=== PATIENT | female | born 1930 | race Caucasian/White ===

== ENCOUNTER 2016-12-10 10:10 | Outpatient (CLI) | payer MEDICARE, OTHER | END 2016-12-10 10:11 | disposition home or self-care (01) | DX: Z79.899 Other long term (current) drug therapy (principal); E03.9 Hypothyroidism, unspecified; E11.9 Type 2 diabetes mellitus without complications; N28.9 Disorder of kidney and ureter, unspecified ==

== ENCOUNTER 2016-12-10 11:45 | Outpatient (CLI) | payer MEDICARE, OTHER | END 2016-12-10 11:46 | disposition home or self-care (01) | DX: M17.12 Unilateral primary osteoarthritis, left knee (principal); M11.262 Other chondrocalcinosis, left knee; E03.9 Hypothyroidism, unspecified; Z79.899 Other long term (current) drug therapy; N28.9 Disorder of kidney and ureter, unspecified; E11.9 Type 2 diabetes mellitus without complications ==

== ENCOUNTER 2017-06-25 09:28 | Outpatient (CLI) | payer MEDICARE, OTHER ==
[2017-06-25 14:19] LABS: BASOPHILS % (AUTO) 0.7 %; EOSINOPHILS # (AUTO) 0.1 10^3/uL (0.0-0.7); HCT - HEMATOCRIT 33.4 % (37.0-47.0); HGB - HEMOGLOBIN 11.3 g/dL (12.0-16.0); LYMPHOCYTES # (AUTO) 0.5 10^3/uL (1.5-3.5); MEAN CORPUSCULAR HEMOGLOBIN 29.7 pg (27.0-31.0); MEAN CORPUSCULAR HGB CONC 33.9 g/dL (32.0-36.0); MEAN CORPUSCULAR VOLUME 87.5 fL (81.0-99.0); MEAN PLATELET VOLUME 9.2 fL (7.9-10.8); MONOCYTES # (AUTO) 0.6 10^3/uL (0.0-1.0); MONOCYTES % (AUTO) 10.2 %; NEUTROPHILS # (AUTO) 4.3 10^3/uL (1.5-6.6); NEUTROPHILS % (AUTO) 79.1 %; RED BLOOD COUNT 3.81 10^6/uL (4.20-5.40); RED CELL DISTRIBUTION WIDTH 13.7 % (12.0-15.0); UNCORRECTED WHITE BLOOD COUNT 5.4 x10^3/uL; WHITE BLOOD COUNT 5.4 x10^3/uL (4.8-10.8)
[2017-06-25 14:35] LABS: ALBUMIN/GLOBULIN RATIO 1.4 (1.0-2.2); BILIRUBIN,TOTAL 0.7 mg/dL (0.2-1.0); CALCIUM 9.3 mg/dL (8.5-10.3); POTASSIUM 4.2 mmol/L (3.5-5.0); TOTAL PROTEIN 6.5 g/dL (6.7-8.2)
== END 2017-06-25 09:29 | disposition home or self-care (01) ==
LOC: LAB.WCP 09:28
PROVIDERS: ATTEND Physician Assistant Medical
DX: T50.Z95A Adverse effect of other vaccines and biological substances, initial encounter (principal)
CPT/HCPCS: 36415; 80053; 85025

== ENCOUNTER 2017-09-13 08:00 | Outpatient (CLI) | payer MEDICARE, OTHER ==
[2017-09-13 19:18] LABS: BASOPHILS % (AUTO) 0.6 %; EOSINOPHILS # (AUTO) 0.1 10^3/uL (0.0-0.7); EOSINOPHILS % (AUTO) 1.9 %; HCT - HEMATOCRIT 35.6 % (37.0-47.0); HGB - HEMOGLOBIN 11.8 g/dL (12.0-16.0); LYMPHOCYTES # (AUTO) 2.4 10^3/uL (1.5-3.5); LYMPHOCYTES % (AUTO) 31.3 %; MEAN CORPUSCULAR HEMOGLOBIN 29.8 pg (27.0-31.0); MEAN CORPUSCULAR HGB CONC 33.1 g/dL (32.0-36.0); MEAN CORPUSCULAR VOLUME 90.1 fL (81.0-99.0); MEAN PLATELET VOLUME 9.2 fL (7.9-10.8); MONOCYTES # (AUTO) 0.6 10^3/uL (0.0-1.0); MONOCYTES % (AUTO) 7.6 %; NEUTROPHILS # (AUTO) 4.5 10^3/uL (1.5-6.6); NEUTROPHILS % (AUTO) 58.6 %; NUCLEATED RED BLOOD CELLS AUTO 0.2 /100WBC; RED BLOOD COUNT 3.96 10^6/uL (4.20-5.40); RED CELL DISTRIBUTION WIDTH 13.5 % (12.0-15.0); UNCORRECTED WHITE BLOOD COUNT 7.6 x10^3/uL; WHITE BLOOD COUNT 7.6 x10^3/uL (4.8-10.8)
[2017-09-13 19:24] LABS: ALBUMIN/GLOBULIN RATIO 1.7 (1.0-2.2); BILIRUBIN,TOTAL 0.8 mg/dL (0.2-1.0); BUN - BLOOD UREA NITROGEN 36 mg/dL (6-20); CALCIUM 9.4 mg/dL (8.5-10.3); CARBON DIOXIDE - CO2 30 mmol/L (21-32); CHLORIDE 102 mmol/L (101-111); CHOL/HDL RATIO 2.5 (<4.4); CHOLESTEROL 157 mg/dL; CREATININE 1.1 mg/dL (0.4-1.0); GFR - MDRD 47 (>89); GLUCOSE 119 mg/dL (70-100); HDL CHOLESTEROL 63 mg/dL; LDL/HDL RATIO 1.1 (<4.4); SODIUM 140 mmol/L (135-145); TOTAL PROTEIN 6.8 g/dL (6.7-8.2); TRIGLYCERIDES 121 mg/dL; VLDL CHOLESTEROL 24 mg/dL
[2017-09-13 20:20] LABS: HEMOGLOBIN A1C 0.64 g/dL
== END 2017-09-13 08:01 | disposition home or self-care (01) ==
LOC: LAB.WCP 08:00
PROVIDERS: ATTEND Physician Assistant Medical
DX: E11.59 Type 2 diabetes mellitus with other circulatory complications (principal); E78.5 Hyperlipidemia, unspecified; Z51.81 Encounter for therapeutic drug level monitoring; Z79.899 Other long term (current) drug therapy
CPT/HCPCS: 36415; 80053; 80061; 83036; 84443; 85025

== ENCOUNTER 2018-01-17 08:51 | Outpatient (CLI) | payer MEDICARE, OTHER ==
[2018-01-17 13:00] LABS: ALBUMIN/GLOBULIN RATIO 1.6 (1.0-2.2); ALKALINE PHOSPHATASE 45 IU/L (42-121); ALT ALANINE AMINOTRANSFERASE 14 IU/L (10-60); AST ASPARTATE AMINOTRANSFERASE 22 IU/L (10-42); BILIRUBIN,TOTAL 0.4 mg/dL (0.2-1.0); BUN - BLOOD UREA NITROGEN 39 mg/dL (6-20); CALCIUM 9.6 mg/dL (8.5-10.3); CARBON DIOXIDE - CO2 30 mmol/L (21-32); CHLORIDE 100 mmol/L (101-111); CHOLESTEROL 160 mg/dL; CREATININE 1.3 mg/dL (0.4-1.0); GFR - MDRD 39 (>89); GLUCOSE 106 mg/dL (70-100); HDL CHOLESTEROL 54 mg/dL; LDL CHOLESTEROL,CALCULATED 81 mg/dL; LDL/HDL RATIO 1.5 (<4.4); SODIUM 138 mmol/L (135-145); TOTAL PROTEIN 6.5 g/dL (6.7-8.2); VLDL CHOLESTEROL 25 mg/dL
[2018-01-17 13:09] LABS: THYROID STIMULATING HORMONE 8.1 uIU/mL (0.34-5.60)
[2018-01-17 13:17] LABS: HB2 TOTAL 12.6 g/dL; HEMOGLOBIN A1C 0.69 g/dL; HEMOGLOBIN A1C % 7.2 % (4.6-6.2)
[2018-01-17 14:21] LABS: FREE T4 (FREE THYROXINE) 0.78 ng/dL (0.58-1.64)
== END 2018-01-17 08:52 | disposition home or self-care (01) ==
LOC: LAB.WCP 08:51
PROVIDERS: ATTEND Physician Assistant Medical
DX: E11.51 Type 2 diabetes mellitus with diabetic peripheral angiopathy without gangrene (principal); E78.5 Hyperlipidemia, unspecified; E03.9 Hypothyroidism, unspecified; Z51.81 Encounter for therapeutic drug level monitoring; Z79.899 Other long term (current) drug therapy
CPT/HCPCS: 36415; 80053; 80061; 83036; 83721; 84439; 84443

== ENCOUNTER 2018-04-21 08:00 | Outpatient (CLI) | payer MEDICARE, OTHER ==
[2018-04-21 19:23] LABS: BUN - BLOOD UREA NITROGEN 33 mg/dL (6-20); CALCIUM 9.3 mg/dL (8.5-10.3); CARBON DIOXIDE - CO2 29 mmol/L (21-32); CHLORIDE 102 mmol/L (101-111); GFR - MDRD 52 (>89); GLUCOSE 204 mg/dL (70-100); SODIUM 139 mmol/L (135-145)
[2018-04-21 19:29] LABS: HB2 TOTAL 11.6 g/dL; HEMOGLOBIN A1C 0.78 g/dL; HEMOGLOBIN A1C % 8.3 % (4.6-6.2)
== END 2018-04-21 08:01 | disposition home or self-care (01) ==
LOC: LAB.WCP 08:00
PROVIDERS: ATTEND Physician Assistant Medical
DX: E11.9 Type 2 diabetes mellitus without complications (principal); E03.9 Hypothyroidism, unspecified
CPT/HCPCS: 36415; 80048; 83036; 84443

== ENCOUNTER 2018-07-20 19:20 | Outpatient (CLI) | payer MEDICARE, OTHER | END 2018-07-20 19:21 | disposition critical access hospital (66) | LOC: EMS 19:20 | PROVIDERS: ATTEND Surgery | DX: R56.9 Unspecified convulsions (principal) | CPT/HCPCS: A0425; A0427 ==

== ENCOUNTER 2018-07-20 19:36 | Inpatient (IN) | payer MEDICARE, OTHER ==
--- NOTE | 2018-07-20 20:04 | ED Physician Documentation ---
PD HPI SEIZURE - Stated complaint Stated Complaint: SZ - Chief complaint Chief Complaint: Neuro - History obtained from History obtained from: Patient, EMS - History of Present Illness Timing - onset: How many hours ago (1), Today Witnessed: Witnessed (EMS reported from patient's grandson that he found her lying near kitchen sink, with whole body shaking. This lasted 2-3 minutes but had stopped by EMS arrival. Medics noted her to have eyes open but not interacting. She improved some enroute but was oriented to only person and still somewhat sleepy by ED arrival.) Number of seizures: Single, Lasted minutes (2-3) Description of seizure activity: Generalized. No: Apneic Injury during seizure: Fell (found on floor near sink, so presumed fell/collapsed.) Associated symptoms: Unknown History of seizures: First seizure. No: Known seizure disorder Contributing factors: No: Low blood sugar, Head injury, Fever (patient reports she had been feeling okay earlier in the day that she can recall.) Treatment MEDICARE INTERVIEWER: Other (EMS did not report checking blood sugar.) Similar symptoms before: Has not had sx before Recently seen: Not recently seen Review of Systems Unable to obtain: Dementia (she seems to be alert here in ED but with poor short and medium term memory more c/w dementia.) Constitutional: denies: Fever Eyes: denies: Loss of vision Nose: denies: Congestion Throat: denies: Sore throat Cardiac: denies: Chest pain / pressure Respiratory: denies: Cough GI: denies: Abdominal Pain, Vomiting, Diarrhea, Bloody / black stool Skin: denies: Abrasion (s), Laceration (s) Neurologic: reports: Confused. denies: Focal weakness, Numbness, Headache, Head injury Endocrine: denies: Weight loss, Easy bruising / bleeding PD PAST MEDICAL HISTORY - Past Medical History Cardiovascular: Hypertension Respiratory: None Neuro: Dementia Endocrine/Autoimmune: None, Type 2 diabetes (metformin only) GI: None - Present Medications Home Medications: Ambulatory Orders Medication Instructions Recorded Confirmed Aspirin Chewable [[place] 81 mg ORAL DAILY 07/20/18 07/20/18 Aspirin] Furosemide [Lasix] 40 mg ORAL DAILY 07/20/18 07/20/18 Levothyroxine Sodium [Tirosint] 50 mcg ORAL DAILY 07/20/18 07/20/18 Loratadine 10 mg ORAL DAILY PRN 07/20/18 07/20/18 Metoprolol Tartrate 25 mg ORAL DAILY 07/20/18 07/20/18 Pravastatin [Pravachol] 40 mg ORAL DAILY 07/20/18 07/20/18 metFORMIN [Glucophage] 850 mg ORAL BID 07/20/18 07/20/18 - Allergies Allergies/Adverse Reactions: Allergies Allergy/AdvReac Type Severity Reaction Status Date / Time No Known Drug Allergies Allergy Verified 07/20/18 20:35 PD ED PE NORMAL - Vitals Vital signs reviewed: Yes - General General: No acute distress, Well developed/nourished. No: Alert and oriented X 3 (person and place, but did not know month) - HEENT HEENT: Atraumatic, PERRL, EOMI, Moist mucous membranes, Pharynx benign - Neck Neck: Supple, no meningeal sign, No adenopathy - Cardiac Cardiac: RRR, No murmur - Respiratory Respiratory: Clear bilaterally - Abdomen Abdomen: Soft, Non tender - Back Back: No CVA TTP - Derm Derm: Normal color, Warm and dry - Extremities Extremities: No deformity, No tenderness to palpate - Neuro Neuro: enamel shader 2-12 intact, No motor deficit, No sensory deficit, Normal speech. No: Alert and oriented X 3 (person and place, not sure of month) Eye Opening: Spontaneous Motor: Obeys Commands Verbal: Oriented GCS Score: 15 Results - Vitals Vitals: Vital Signs - 24 hr 07/20/18 07/20/18 07/20/18 19:41 21:50 22:27 Temperature 36.7 C Heart Rate 84 83 70 Respiratory 18 16 16 Rate Blood Pressure 186/79 H 198/94 H 188/79 H O2 Saturation 96 100 96 07/20/18 07/20/18 22:39 23:07 Temperature 36.2 C L Heart Rate 69 73 Respiratory 16 14 Rate Blood Pressure 188/79 H 175/79 H O2 Saturation 99 98 Oxygen O2 Source Room air - Labs Labs: Laboratory Tests 07/20/18 07/20/18 07/20/18 20:26 20:44 20:44 WBC 4.5 L RBC 3.92 L Hgb 11.6 L Hct 35.7 L MCV 91.1 MCH 29.7 MCHC 32.6 RDW 13.4 Plt Count 186 MPV 9.2 Neut # (Auto) 3.2 Lymph # (Auto) 0.8 L Kaufman # (Auto) 0.4 Eos # (Auto) 0.1 Baso # (Auto) 0.0 Absolute Nucleated RBC 0.00 Nucleated RBC % 0.0 VBG pH VBG pCO2 VBG pO2 VBG HCO3 VBG Total CO2 VBG O2 Saturation VBG Base Excess Sodium 133 L Potassium 3.9 Chloride 91 L Carbon Dioxide 29 Anion Gap 13.0 BUN 34 H Creatinine 1.4 H Estimated GFR (MDRD) 35 L Glucose 685 H* Calcium 9.0 Magnesium 1.6 L Total Bilirubin 0.4 AST 45 H ALT 29 Alkaline Phosphatase 88 Total Creatine Kinase 44 Troponin I Total Protein 6.9 Albumin 4.1 Globulin 2.8 Albumin/Globulin Ratio 1.5 Lipase 89 H TSH 6.13 H Prolactin Urine Color Urine Clarity Urine pH Ur Specific [place] Urine Protein Urine Glucose (UA) Urine Ketones Urine Occult Blood Urine Nitrite Urine Bilirubin Urine Urobilinogen Ur Leukocyte Esterase Ur Microscopic Review Urine Culture Comments Serum Ketones 07/20/18 07/20/18 07/20/18 20:44 20:44 20:44 WBC RBC Hgb Hct MCV MCH MCHC RDW Plt Count MPV Neut # (Auto) Lymph # (Auto) K[place]man # (Auto) Eos # (Auto) Baso # (Auto) Absolute Nucleated RBC Nucleated RBC % VBG pH VBG pCO2 VBG pO2 VBG HCO3 VBG Total CO2 VBG O2 Saturation VBG Base Excess Sodium Potassium Chloride Carbon Dioxide Anion Gap BUN Creatinine Estimated GFR (MDRD) Glucose Calcium Magnesium Total Bilirubin AST ALT Alkaline Phosphatase Total Creatine Kinase Troponin I < 0.04 Total Protein Albumin Globulin Albumin/Globulin Ratio Lipase TSH Prolactin 36.38 Urine Color YELLOW Urine Clarity CLEAR Urine pH 6.0 Ur Specific [place] <=1.005 Urine Protein NEGATIVE Urine Glucose (UA) >=1000 H Urine Ketones NEGATIVE Urine Occult Blood TRACE-INTA Urine Nitrite NEGATIVE Urine Bilirubin NEGATIVE Urine Urobilinogen 0.2 (NORMAL) Ur Leukocyte Esterase NEGATIVE Ur Microscopic Review NOT INDICATED Urine Culture Comments NOT INDICATED Serum Ketones 07/20/18 07/20/18 20:44 21:45 WBC RBC Hgb Hct MCV MCH MCHC RDW Plt Count MPV Neut # (Auto) Lymph # (Auto) [place] # (Auto) Eos # (Auto) Baso # (Auto) Absolute Nucleated RBC Nucleated RBC % VBG pH 7.384 VBG pCO2 42.9 VBG pO2 65.5 H VBG HCO3 25.0 VBG Total CO2 26.4 VBG O2 Saturation 91.7 H VBG Base Excess -0.1 Sodium Potassium Chloride Carbon Dioxide Anion Gap BUN Creatinine Estimated GFR (MDRD) Glucose Calcium Magnesium Total Bilirubin AST ALT Alkaline Phosphatase Total Creatine Kinase Troponin I Total Protein Albumin Globulin Albumin/Globulin Ratio Lipase TSH Prolactin Urine Color Urine Clarity Urine pH Ur Specific [place] Urine Protein Urine Glucose (UA) Urine Ketones Urine Occult Blood Urine Nitrite Urine Bilirubin Urine Urobilinogen Ur Leukocyte Esterase Ur Microscopic Review Urine Culture Comments Serum Ketones NEGATIVE - Rads (name of study) head CT Radiology: Prelim report reviewed (age related changes; no acute. ), EMP read contemporaneously PD MEDICAL DECISION MAKING - ED course Complexity details: considered differential (Description of her symptoms in the course of it sound like seizure with a postictal state and now returning more to baseline with an apparent baseline memory problems/dementia. There is no history of seizures in the past. Her blood sugar is elevated at 653 but she does not appear ketotic. There are no focal deficits at this time. Further evaluation and testing as well as treatment of the hyperglycemia is appropriate.), d/w patient Departure - Departure Disposition: ED Place in Observation Clinical Impression: Hyperglycemia, Seizure Condition: Stable Record reviewed to determine appropriate education?: Yes Discharge Date/Time: 07/20/18 23:54
[2018-07-20] MEDS ORDERED: SODIUM CHLORIDE 0.9% 1,000 ML IV ONE ×2 (20:24→22:39)
[2018-07-20 20:59] LABS: BILIRUBIN,URINE NEGATIVE (NEGATIVE); GLUCOSE, URINE (UA) >=1000 mg/dL (NEGATIVE); KETONES,URINE (UA) NEGATIVE (NEGATIVE); LEUKOCYTE ESTERASE, URINE NEGATIVE (NEGATIVE); NITRITE,URINE NEGATIVE (NEGATIVE); OCCULT BLOOD,URINE TRACE-INTA (NEGATIVE); PROTEIN,URINE NEGATIVE (NEGATIVE); UROBILINOGEN,URINE 0.2 (NORMAL) E.U./dL (NORMAL)
[2018-07-20 21:00] LABS: CLARITY,URINE CLEAR (CLEAR)
[2018-07-20 21:03] LABS: BASOPHILS % (AUTO) 0.5 %; EOSINOPHILS # (AUTO) 0.1 10^3/uL (0.0-0.7); EOSINOPHILS % (AUTO) 1.6 %; HGB - HEMOGLOBIN 11.6 g/dL (12.0-16.0); LYMPHOCYTES # (AUTO) 0.8 10^3/uL (1.5-3.5); LYMPHOCYTES % (AUTO) 18.7 %; MEAN CORPUSCULAR HEMOGLOBIN 29.7 pg (27.0-31.0); MEAN CORPUSCULAR HGB CONC 32.6 g/dL (32.0-36.0); MEAN CORPUSCULAR VOLUME 91.1 fL (81.0-99.0); MEAN PLATELET VOLUME 9.2 fL (7.9-10.8); MONOCYTES # (AUTO) 0.4 10^3/uL (0.0-1.0); NEUTROPHILS # (AUTO) 3.2 10^3/uL (1.5-6.6); NEUTROPHILS % (AUTO) 71.2 %; PLT - PLATELET COUNT 186 10^3/uL (130-450); RED BLOOD COUNT 3.92 10^6/uL (4.20-5.40); RED CELL DISTRIBUTION WIDTH 13.4 % (12.0-15.0); WHITE BLOOD COUNT 4.5 x10^3/uL (4.8-10.8)
[2018-07-20 21:15] LABS: ALBUMIN 4.1 g/dL (3.2-5.5); ALBUMIN/GLOBULIN RATIO 1.5 (1.0-2.2); BILIRUBIN,TOTAL 0.4 mg/dL (0.2-1.0); CREATININE 1.4 mg/dL (0.4-1.0); MAGNESIUM 1.6 mg/dL (1.7-2.8); TOTAL PROTEIN 6.9 g/dL (6.7-8.2)
[2018-07-20 21:54] LABS: VBG BASE EXCESS -0.1 mmol/L (-2 - +2); VBG PCO2 42.9 mmHg (41-51); VBG PH 7.384 (7.31-7.41); VBG PO2 65.5 mmHg (25-47); VBG TOTAL CO2 26.4 mmol/L (24-29)
--- NOTE | 2018-07-20 22:01 | CT Report ---
Reason: seizure activity Procedure Date: 07/20/2018 Accession Number: [id number] / [id number] Procedure: CT - Head W/O CPT Code: FULL RESULT: EXAM: CT HEAD EXAM DATE: 07/20/2018 09:33 PM. CLINICAL HISTORY: Seizure activity. COMPARISON: None. TECHNIQUE: Multiaxial CT images were obtained from the foramen magnum to the vertex. Reformats: Sagittal and coronal. IV contrast: None. In accordance with CT protocol optimization, one or more of the following dose reduction techniques were utilized for this exam: automated exposure control, adjustment of mA and/or KV based on patient size, or use of iterative reconstructive technique. FINDINGS: Parenchyma: No intraparenchymal hemorrhage. No evidence of mass, midline shift, or CT findings of acute infarction. Fry-white differentiation is distinct. 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 Extraaxial Spaces: Normal for age. No subdural or epidural collections identified. Ventricles: The ventricles and cortical sulci are enlarged, consistent with age-related tissue loss. Sinuses and orbits: Imaged paranasal sinuses, orbits, and mastoids show no significant abnormality. Bones: No evidence of fracture or calvarial defect. Other: None. IMPRESSION: Generalized age-related cortical atrophic changes without evidence of acute intracranial abnormality. [facility]
[2018-07-20] MEDS ORDERED: INSULIN REGULAR HUMAN 100 UNIT/1 ML 10 ML MDV IVP SCH (23:26)
[2018-07-20] MEDS ORDERED: PROMETHAZINE 25 MG/1 ML VIAL IM PRN (23:26)
[2018-07-20] MEDS ORDERED: SODIUM CHLORIDE FLUSH 0.9% 10 ML SYRINGE IVP PRN (23:26)
[2018-07-20] MEDS ORDERED: ACETAMINOPHEN 325 MG TABLET PO PRN (23:26)
[2018-07-20] MEDS ORDERED: PROCHLORPERAZINE 10 MG/2 ML VIAL IVP PRN (23:26)
[2018-07-20] MEDS ORDERED: MAGNESIUM SULFATE 2 GRAM 2 GM/50 ML BAG IV SCH (23:26)
[2018-07-20] MEDS ORDERED: oxyCODONE 5 MG TABLET PO PRN (23:26)
[2018-07-20] MEDS ORDERED: ONDANSETRON 4 MG/2 ML VIAL IVP PRN (23:26)
--- NOTE | 2018-07-20 23:34 | HISTORY & PHYSICAL EXAMINATION ---
Chief Complaint - Chief Complaint Chief Complaint: Seizure History of Present Illness - Admitted From Admitted From:: Emergency Department - History Obtained From Records Reviewed: Yes History obtained from: Patients daughter and patient Exam Limitations: Patient is hard of hearing and does not remember what happened earlier - History of Present Illness HPI Comment/Other: Patient is a very pleasant 88-year-old female with a past medical history significant for hearing loss, mild dementia, diabetes, hypertension, hyperl ipidemia and hypothyroidism who presented to the emergency department after what the patient's daughter thought was a seizure. The patient does not recall what happened earlier this evening. The patient's daughter describes that the patient was witnessed by her son shaking at the kitchen sink. The daughter states that the patient had this seizure-like activity for about 2-3 minutes and her whole body was shaking. The patient's daughter became concerned and called 911. According to the patient she was not having any symptoms prior to this and has no recollection of this happening. She denies any headaches, focal neurologic symptoms, dizziness, lightheadedness, chest pain, cough, shortness of breath, abdominal pain, nausea, vomiting, diarrhea, urinary urgency, urinary frequency, dysuria, back pain, neck stiffness, fevers or chills. The patient's daughter also stated that the patient was in her normal state of health prior to this episode. Once the paramedics arrived the patient was responsive and opening her eyes but not following commands or speaking. When the patient arrived in the emergency department she was able to follow commands and was able to tell them her name. On presentation to the emergency department the patient was afebrile and hypertensive with blood pressure of 186/79 but remainder of vital signs were within normal limits. The patient underwent fingerstick for her glucose which was greater than 600. The patient will underwent routine lab work which revealed a mild leukopenia, mild hyponatremia, acute kidney injury with a creatinine of 1.4 and BUN of 34 and a blood glucose of 685. The patient did also have some mild hypomagnesemia. The patient did not have acidosis and had no anion gap. The patient did have a mildly elevated lipase and TSH. The patient's urine analysis was negative. Patient's serum ketones were negative. The patient underwent a CT of her head which showed generalized age-related cortical atrophic changes without evidence of acute intracranial abnormality. The patient's EKG showed sinus rhythm without ST elevations or acute ischemic changes. The patient's troponin was negative. The patient's mental status appeared to be slowly improving in the emergency department. Given that the patient had severe hyperglycemia and appeared to be dehydrated she was given IV fluid and placed in observation for further monitoring of her mental status. History - Past Medical History Cardiovascular: reports: Hypertension, High cholesterol Neuro: reports: Other (Mild cognitive decline with memory loss) Endocrine/Autoimmune: reports: Type 2 diabetes, HyPOthyroidism HEENT: reports: Chronic hearing loss - Family & Social History Family History: Mother: , Diabetes, Type 2, Father: Living arrangement: At home Living Situation: With family Social History Notes: The patient lives in [place] with her daughter, grandson and granddaughter. The patient was born in [place] and moved to [facility] about 14 years ago. She has 12 children. She is . She is never been a smoker, she does not drink alcohol and denies any illicit drug use. The patient states that she still ambulates without a walker and is fairly independent at home. - POLST Patient has POLST: Yes POLST Status: Full Code Meds/Allgy - Home Medications Home Medications: Ambulatory Orders Medication Instructions Recorded Confirmed Aspirin Chewable [[place] 81 mg ORAL DAILY 07/20/18 07/20/18 Aspirin] Furosemide [Lasix] 40 mg ORAL DAILY 07/20/18 07/20/18 Levothyroxine Sodium [Tirosint] 50 mcg ORAL DAILY 07/20/18 07/20/18 Loratadine 10 mg ORAL DAILY PRN 07/20/18 07/20/18 Metoprolol Tartrate 25 mg ORAL DAILY 07/20/18 07/20/18 Pravastatin [Pravachol] 40 mg ORAL DAILY 07/20/18 07/20/18 metFORMIN [Glucophage] 850 mg ORAL BID 07/20/18 07/20/18 - Allergies Allergies/Adverse Reactions: Allergies Allergy/AdvReac Type Severity Reaction Status Date / Time No Known Drug Allergies Allergy Verified 07/20/18 20:35 Review of Systems - Other Findings Other Findings: A comprehensive review of systems was performed the pertinent positives and negatives are stated above in the HPI and the remainder of the review of systems is negative. Prior Level of Functionality: The patient is fairly independent able to ambulate without a walker. She does have some memory deficit and is hard of hearing but otherwise continues to thrive in her daughter's home. Exam - Vital Signs Reviewed Vital Signs: Yes Vital Signs: Vital Signs x48h Temp Pulse Resp BP Pulse Ox 07/20/18 23:07 36.2 C L 73 14 175/79 H 98 07/20/18 22:39 69 16 188/79 H 99 07/20/18 22:27 70 16 188/79 H 96 07/20/18 21:50 83 16 198/94 H 100 07/20/18 19:41 36.7 C 84 18 186/79 H 96 - Physical Exam General Appearance: positive: No acute distress, Alert Eyes Bilateral: positive: Normal inspection, PERRL, EOMI, No lid inflammation, Conjunctivae nml, No scleral icterus ENT: positive: ENT inspection nml, Pharynx nml, Dry mucous membranes. negative: Purulent nasal drainage, Pharyngeal erythema, Oral lesions Neck: positive: Nml inspection, Thyroid nml, No JVD, Trachea midline. negative: Lymphadenopathy (R), Lymphadenopathy (L), Stiff neck, Carotid bruit, Tracheal deviation Respiratory: positive: Chest non-tender, No respiratory distress, Breath sounds nml. negative: Wheezes, Rales, Rhonchi Cardiovascular: positive: Regular rate & rhythm, No murmur, No gallop Peripheral Pulses: positive: 2+ Abdomen: positive: Non-tender, No organomegaly, Nml bowel sounds, No distention. negative: Guarding, Rebound, Hepatomegaly Back: positive: Nml inspection. negative: CVA tenderness (R), CVA tenderness (L) Skin: positive: Color nml, No rash, Warm, Dry. negative: Cyanosis, Diaphoresis Extremities: positive: Non-tender, Full ROM, Nml appearance, No pedal edema Neurologic/Psychiatric: positive: CN's nml (2-12), Motor nml, Sensation nml, Mood/affect nml, Disoriented to time Conclusion/Plan - Problem List (1) Altered mental status Conclusion/Plan: According to the patient's family the patient was in her normal state of health when she had seizure-like activity this evening where she was shaking her whole body. This lasted for about 2-3 minutes. After the episode patient was opening her eyes but not responsive then when she arrived in the emergency department the patient was more responsive and able to follow commands but still not back to her normal mentation. The patient's workup was significant for severe hyperglycemia as the patient's blood glucose was 685. The patient was also dehydrated with an elevated creatinine, low sodium, low chloride and low magnesium. The patient's urine analysis was negative. The patient's CT head showed generalized age-related cortical atrophic changes without evidence of acute intracranial abnormality. The patient had no further events in the emergency department. Slowly the patient's mentation was improving throughout her emergency room stay. Given the patient's hyperglycemia and likely metabolic encephalopathy the patient was placed in observation for further monitoring and treatment of her blood glucose and electrolyte disturbances. It is possible that the patient may have had a new onset seizure as she has never had any history of seizures. The CT of her head however is negative and she is not having any focal neurologic deficits at this time. Plan: We will continue to monitor the patient's mental status if she has any changes or develops any focal neurologic deficits we will consider getting an MRI We will not treat for seizures as there is no confirmation that the patient had a seizure and given that it is the first time having a seizure she does not warrant treatment with any antiepileptic medications Correct electrolyte disturbances including hyperglycemia, hypomagnesemia, hyponatremia and dehydration. IV fluids Qualifiers: Altered mental status type: disorientation Qualified Code(s): R41.0 - Disorientation, unspecified (2) Hyperglycemia Conclusion/Plan: The patient presented with what appeared to be seizure activity and then a post ictal state. The patient continued to have confusion. She appeared to be dry on examination and blood glucose was elevated at 685. The patient does have a history of diabetes but is on metformin alone. The patient appeared to have altered mental status secondary to her electrolyte abnormalities including her hyperglycemia and dehydration. The patient did not have any evidence of infection and appear to be resolving quite quickly with getting fluids. Plan: Hold metformin Sliding scale insulin Diabetic diet Check hemoglobin A1c Check blood glucose before meals at bedtime (3) FATUMA (acute kidney injury) Conclusion/Plan: The patient appeared to have dehydration on examination she had dry mucous membranes with electrolyte disturbances. The patient's creatinine was elevated at 1.4 from a baseline of around 1.0. The patient also had a elevated BUN of 34. The patient appears to have prerenal azotemia with acute kidney injury. Plan: IV fluids Avoid nephrotoxic agents Monitor creatinine (4) Hypomagnesemia Conclusion/Plan: The patient was hypomagnesemic on presentation with a magnesium of 1.6. Patient will have her magnesium replaced and will continue to monitor daily magnesium. (5) Hyponatremia Conclusion/Plan: The patient was hyponatremic on presentation with a sodium of 133. This appears to be a pseudohyponatremia as the patient's blood glucose was 685 and corrected sodium is greater than 135. The patient however does appear to be quite dry on examination and will need to be given IV fluids. (6) Hypothyroidism Conclusion/Plan: The patient has a history of hypothyroidism and is on levothyroxine. The patient's TSH was mildly elevated at 6.13. The patient may need her levothyroxine dose adjusted however since the TSH is only minimally elevated we will not change her dose here. The patient will be continued on her home dose o f levothyroxine. It is very unlikely that her mildly elevated TSH was in any way contributing to her presentation. Qualifiers: Hypothyroidism type: unspecified Qualified Code(s): E03.9 - Hypothyroidism, unspecified (7) Hypertension Conclusion/Plan: The patient has a history of hypertension and blood pressure was severely elevated on presentation with a blood pressure of 186/79. Blood pressure may have been elevated secondary to seizure activity or possible TIA. The patient CT head was negative. The patient's elevated blood pressure could also have caused encephalopathy and seizure however on presentation the patient did not appear to have hypertensive urgency or emergency. Plan: Continue home antihypertensive medications Monitor blood pressure and titrate medications as needed. Qualifiers: Hypertension type: essential hypertension Qualified Code(s): I10 - Essential (primary) hypertension (8) Hyperlipidemia Conclusion/Plan: Patient has a history of hyperlipidemia and takes a statin at home. The patient will be continued on statin while she is hospitalized. Qualifiers: Hyperlipidemia type: unspecified Qualified Code(s): E78.5 - Hyperlipidemia, unspecified - Lab Results Lab results reviewed: Yes Fish Bones: 07/20/18 20:44 07/20/18 20:44 Other Lab Results: Laboratory Results WBC 4.5 x10^3/uL (4.8-10.8) L 07/20/18 20:44 RBC 3.92 10^6/uL (4.20-5.40) L 07/20/18 20:44 Hgb 11.6 g/dL (12.0-16.0) L 07/20/18 20:44 Hct 35.7 % (37.0-47.0) L 07/20/18 20:44 MCV 91.1 fL (81.0-99.0) 07/20/18 20:44 MCH 29.7 pg (27.0-31.0) 07/20/18 20:44 MCHC 32.6 g/dL (32.0-36.0) 07/20/18 20:44 RDW 13.4 % (12.0-15.0) 07/20/18 20:44 Plt Count 186 10^3/uL (130-450) 07/20/18 20:44 MPV 9.2 fL (7.9-10.8) 07/20/18 20:44 Neut # (Auto) 3.2 10^3/uL (1.5-6.6) 07/20/18 20:44 Lymph # (Auto) 0.8 10^3/uL (1.5-3.5) L 07/20/18 20:44 [place] # (Auto) 0.4 10^3/uL (0.0-1.0) 07/20/18 20:44 Eos # (Auto) 0.1 10^3/uL (0.0-0.7) 07/20/18 20:44 Baso # (Auto) 0.0 10^3/uL (0.0-0.1) 07/20/18 20:44 Absolute Nucleated RBC 0.00 x10^3/uL 07/20/18 20:44 Nucleated RBC % 0.0 /100WBC 07/20/18 20:44 VBG pH 7.384 (7.31-7.41) 07/20/18 21:45 VBG pCO2 42.9 mmHg (41-51) 07/20/18 21:45 VBG pO2 65.5 mmHg (25-47) H 07/20/18 21:45 VBG HCO3 25.0 mmol/L (23-28) 07/20/18 21:45 VBG Total CO2 26.4 mmol/L (24-29) 07/20/18 21:45 VBG O2 Saturation 91.7 % (60-80) H 07/20/18 21:45 VBG Base Excess -0.1 mmol/L (-2 - +2) 07/20/18 21:45 Sodium 133 mmol/L (135-145) L 07/20/18 20:44 Potassium 3.9 mmol/L (3.5-5.0) 07/20/18 20:44 Chloride 91 mmol/L (101-111) L 07/20/18 20:44 Carbon Dioxide 29 mmol/L (21-32) 07/20/18 20:44 Anion Gap 13.0 (6-13) 07/20/18 20:44 BUN 34 mg/dL (6-20) H 07/20/18 20:44 Creatinine 1.4 mg/dL (0.4-1.0) H 07/20/18 20:44 Estimated GFR (MDRD) 35 (>89) L 07/20/18 20:44 Glucose 685 mg/dL (70-100) H* 07/20/18 20:44 Calcium 9.0 mg/dL (8.5-10.3) 07/20/18 20:44 Magnesium 1.6 mg/dL (1.7-2.8) L 07/20/18 20:44 Total Bilirubin 0.4 mg/dL (0.2-1.0) 07/20/18 20:44 AST 45 IU/L (10-42) H 07/20/18 20:44 ALT 29 IU/L (10-60) 07/20/18 20:44 Alkaline Phosphatase 88 IU/L (42-121) 07/20/18 20:44 Total Creatine Kinase 44 IU/L (22-269) 07/20/18 20:44 Troponin I < 0.04 ng/mL (<0.49) 07/20/18 20:44 Total Protein 6.9 g/dL (6.7-8.2) 07/20/18 20:44 Albumin 4.1 g/dL (3.2-5.5) 07/20/18 20:44 Globulin 2.8 g/dL (2.1-4.2) 07/20/18 20:44 Albumin/Globulin Ratio 1.5 (1.0-2.2) 07/20/18 20:44 Lipase 89 U/L (22-51) H 10/17/18 20:44 TSH 6.13 uIU/mL (0.34-5.60) H 07/20/18 20:26 Prolactin 36.38 ng/mL 07/20/18 20:44 Urine Color YELLOW 07/20/18 20:44 Urine Clarity CLEAR (CLEAR) 07/20/18 20:44 Urine pH 6.0 PH (5.0-7.5) 07/20/18 20:44 Ur Specific [place] <=1.005 (1.002-1.030) 07/20/18 20:44 Urine Protein NEGATIVE mg/dL (NEGATIVE) 07/20/18 20:44 Urine Glucose (UA) >=1000 mg/dL (NEGATIVE) H 07/20/18 20:44 Urine Ketones NEGATIVE mg/dL (NEGATIVE) 07/20/18 20:44 Urine Occult Blood TRACE-INTA (NEGATIVE) 07/20/18 20:44 Urine Nitrite NEGATIVE (NEGATIVE) 07/20/18 20:44 Urine Bilirubin NEGATIVE (NEGATIVE) 07/20/18 20:44 Urine Urobilinogen 0.2 (NORMAL) E.U./dL (NORMAL) 07/20/18 20:44 Ur Leukocyte Esterase NEGATIVE (NEGATIVE) 07/20/18 20:44 Ur Microscopic Review NOT INDICATED 07/20/18 20:44 Urine Culture Comments NOT INDICATED 07/20/18 20:44 Serum Ketones NEGATIVE (NEGATIVE) 07/20/18 20:44 - Diagnostic Imaging Results Diagnostic Imaging Results: positive: Final report reviewed Diagnostic Imaging Results Comments: CT head Impression: Generalized age-related cortical atrophic changes without evidence of acute intracranial abnormality. Abdomen ultrasound Impression: 1. Coarse heterogeneous liver 2. No evidence for cholelithiasis. Core Measures - Anticipated LOS I expect patient to be DC'd or transferred within 96 hours.: Yes - DVT/VTE - Prophylaxis VTE/DVT Prophylaxis med ordered at admit?: Yes
[2018-07-21] MEDS: SODIUM CHLORIDE 0.9% 1,000 ML IV SCH ×2 (00:44→12:03)
--- NOTE | 2018-07-21 02:11 | Ultrasound Report ---
Reason: Abdominal tenderness, elevated lipase and AST Procedure Date: 07/21/2018 Accession Number: [id number] / [id number] Procedure: US - Abdomen Complete CPT Code: FULL RESULT: EXAM: ABDOMEN ULTRASOUND EXAM DATE: 07/21/2018 12:58 AM. CLINICAL HISTORY: Abdominal tenderness, elevated lipase and AST. COMPARISON: None. TECHNIQUE: Real-time scanning was performed with static images obtained. FINDINGS: Liver: The liver measures 16.4 cm in the mid axillary line. The parenchyma is coarse and heterogeneous. Suboptimal evaluation secondary to patient's body habitus. cm. Main portal vein flow: Hepatopetal. Gallbladder: Normal. No stones, wall thickening, or sonographic Jefferson's sign. Biliary System: Common bile duct measures 5 mm. No intrahepatic or extrahepatic ductal dilatation. Pancreas: Visualized portion is unremarkable. Kidneys: Right: 9.5 cm longitudinally. Normal. No contour-deforming mass, stones, or hydronephrosis. Left: 10.0 cm longitudinally. Normal. No contour-deforming mass, stones, or hydronephrosis. Spleen: 9.1 x 4.1 x 9.0 cm. Normal in size and echotexture. Aorta and Inferior Vena Cava: Unremarkable. Other: None. IMPRESSION: 1. Coarse heterogeneous liver. 2. No evidence for cholelithiasis. RADIA
[2018-07-21] MEDS: SODIUM CHLORIDE FLUSH 0.9% 10 ML SYRINGE IVP SCH ×3 (03:25→17:06)
[2018-07-21 05:55] LABS: BASOPHILS % (AUTO) 0.4 %; EOSINOPHILS % (AUTO) 0.2 %; HGB - HEMOGLOBIN 11.1 g/dL (12.0-16.0); LYMPHOCYTES # (AUTO) 0.9 10^3/uL (1.5-3.5); LYMPHOCYTES % (AUTO) 13.6 %; MEAN CORPUSCULAR HEMOGLOBIN 30.3 pg (27.0-31.0); MEAN CORPUSCULAR HGB CONC 33.8 g/dL (32.0-36.0); MEAN CORPUSCULAR VOLUME 89.6 fL (81.0-99.0); MEAN PLATELET VOLUME 8.9 fL (7.9-10.8); MONOCYTES # (AUTO) 0.5 10^3/uL (0.0-1.0); MONOCYTES % (AUTO) 7.8 %; NEUTROPHILS # (AUTO) 5.2 10^3/uL (1.5-6.6); PLT - PLATELET COUNT 159 10^3/uL (130-450); RED BLOOD COUNT 3.67 10^6/uL (4.20-5.40); RED CELL DISTRIBUTION WIDTH 13.2 % (12.0-15.0); WHITE BLOOD COUNT 6.6 x10^3/uL (4.8-10.8)
[2018-07-21 06:07] LABS: INR 0.9 (0.8-1.2); PT - PROTHROMBIN TIME 10.7 secs (9.9-12.6)
[2018-07-21 06:18] LABS: ALBUMIN 3.5 g/dL (3.2-5.5); ALBUMIN/GLOBULIN RATIO 1.3 (1.0-2.2); BILIRUBIN,TOTAL 0.5 mg/dL (0.2-1.0); CALCIUM 8.6 mg/dL (8.5-10.3); CREATININE 0.9 mg/dL (0.4-1.0); MAGNESIUM 2.3 mg/dL (1.7-2.8); PHOSPHORUS 2.8 mg/dL (2.5-4.6); TOTAL PROTEIN 6.1 g/dL (6.7-8.2)
[2018-07-21 06:46] LABS: HB2 TOTAL 11.2 g/dL; HEMOGLOBIN A1C 0.89 g/dL; HEMOGLOBIN A1C % 9.4 % (4.6-6.2)
--- NOTE | 2018-07-21 08:41 | XRAY Report ---
Reason: Altered mental status Procedure Date: 07/21/2018 Accession Number: [id number] / [id number] Procedure: XR - Chest 1 View X-Ray CPT Code: 60266 FULL RESULT: EXAM: CHEST RADIOGRAPHY EXAM DATE: 07/21/2018 08:30 AM. CLINICAL HISTORY: Altered mental status. COMPARISON: 02/26/2015. TECHNIQUE: 1 view. FINDINGS: Lungs/Pleura: Mild bibasilar atelectasis No pleural effusion. No pneumothorax. Decreased lung volumes Mediastinum: Within exam limitations, the cardiomediastinal contour is normal. Ectatic aorta Other: None. IMPRESSION: Mild bibasilar atelectasis RADIA
[2018-07-21] MEDS: INSULIN ASPART 300 UNIT/3 ML PEN SUBQ SCH ×4 (08:54→20:00)
[2018-07-21] MEDS ORDERED: FAMOTIDINE 20 MG TABLET PO SCH (09:00)
[2018-07-21] MEDS ORDERED: PRAVASTATIN 40 MG TABLET PO SCH (09:00)
[2018-07-21] MEDS ORDERED: ENOXAPARIN 40 MG/0.4 ML SYRINGE SUBQ SCH (09:00)
[2018-07-21] MEDS ORDERED: SODIUM CHLORIDE 0.9% 500 ML IV ONE ×2 (09:28→10:47)
[2018-07-21] MEDS ORDERED: POTASSIUM CHLORIDE 20 MEQ TABLET PO ONE ×2 (09:30→11:30)
[2018-07-21] MEDS ORDERED: INSULIN ASPART 300 UNIT/3 ML PEN SUBQ ONE ×2 (09:30→11:02)
[2018-07-21] MEDS: LEVOTHYROXINE 25 MCG TABLET PO SCH (10:04)
[2018-07-21] MEDS: ENOXAPARIN 30 MG/0.3 ML SYRINGE SUBQ SCH (10:04)
[2018-07-21] MEDS: ASPIRIN CHEW 81 MG TABLET PO SCH (10:04)
[2018-07-21] MEDS: METOPROLOL TARTRATE 25 MG TABLET PO SCH (10:04)
[2018-07-21] MEDS: FAMOTIDINE 20 MG TABLET PO SCH (10:07)
[2018-07-21] MEDS: POLYETHYLENE GLYCOL 3350 17 GM PACKET PO SCH (11:11)
[2018-07-21] MEDS ORDERED: LORATADINE 10 MG TABLET PO PRN (12:14)
--- NOTE | 2018-07-21 16:13 | PROVIDER PROGRESS NOTE ---
Subjective - Prog Note Date Prog Note Date: 07/21/18 - Subjective Pt reports feeling: No change Subjective: pt state he feels fine, she state she did not sure she took all her medications as the schedule. She denies fever, chill, chest pain. Current Medications - Current Medications Current Medications: Active Medications Acetaminophen (Tylenol) 650 mg PO Q4HR PRN PRN Reason: Pain 1 to 4 Aspirin ([place] Aspirin) 81 mg PO DAILY COUNT INCLUDES THE [facility] Last Admin: 07/21/18 10:04 Dose: 81 mg Enoxaparin Sodium (Lovenox) 30 mg SUBQ DAILY COUNT INCLUDES THE [facility] Last Admin: 07/21/18 10:04 Dose: 30 mg Famotidine (Pepcid) 20 mg PO DAILY COUNT INCLUDES THE [facility] Last Admin: 07/21/18 10:07 Dose: 20 mg Sodium Chloride (Normal Saline 0.9%) 1,000 mls @ 100 mls/hr IV .Q10H COUNT INCLUDES THE [facility] Last Admin: 07/21/18 12:03 Dose: 100 mls/hr Insulin Aspart (Novolog) 1 - 9 unit SUBQ 0800,1200,1700,2100 COUNT INCLUDES THE [facility]; Protocol Last Admin: 07/21/18 11:56 Dose: Not Given Insulin Glargine (Lantus Solostar) 10 unit SUBQ QPM COUNT INCLUDES THE [facility] Levothyroxine Sodium (Synthroid) 50 mcg PO QDAC COUNT INCLUDES THE [facility] Last Admin: 07/21/18 10:04 Dose: 50 mcg Loratadine (Claritin) 10 mg PO DAILY PRN PRN Reason: Cold Symptons Metoprolol Tartrate (Lopressor) 25 mg PO DAILY COUNT INCLUDES THE [facility] Last Admin: 07/21/18 10:04 Dose: 25 mg Ondansetron HCl (Zofran Inj) 4 mg IVP Q6HR PRN PRN Reason: Nausea / Vomiting Oxycodone HCl (Roxicodone) 5 mg PO Q4HR PRN PRN Reason: Pain 5 to 7 Polyethylene Glycol (Miralax) 17 gm PO DAILY COUNT INCLUDES THE [facility] Last Admin: 07/21/18 11:11 Dose: Not Given Pravastatin Sodium (Pravachol) 40 mg PO QPM COUNT INCLUDES THE [facility] Prochlorperazine Edisylate (Compazine Inj) 10 mg IVP Q6HR PRN PRN Reason: Nausea / Vomiting Promethazine HCl (Phenergan Inj) 25 mg IM Q6HR PRN PRN Reason: Nausea / Vomiting Sodium Chloride (Normal Saline Flush 0.9%) 10 ml IVP PRN PRN PRN Reason: NEEDED PER PROVIDER ORDERS Sodium Chloride (Normal Saline Flush 0.9%) 10 ml IVP 0100,0900,1700 [id number] Last Admin: 07/21/18 11:10 Dose: Not Given Aspirin Chewable [[place] Aspirin] 81 mg PO DAILY 07/20/18 Furosemide [Lasix] 20 mg PO DAILY 07/20/18 Loratadine 10 mg PO DAILY PRN 07/20/18 Metoprolol Tartrate 25 mg PO DAILY 07/20/18 Pravastatin [Pravachol] 40 mg PO QPM 07/20/18 metFORMIN [Glucophage] 850 mg PO BID 07/20/18 Levothyroxine Sodium [Synthroid] 50 mcg PO QDAC 07/21/18 Objective - Vital Signs/Intake & Output Reviewed Vital Signs: Yes Vital Signs: Vital Signs x48h Temp Pulse Resp BP BP Pulse Ox 07/21/18 15:31 36.7 C 56 L 18 130/54 L 93 07/21/18 14:15 36.6 C 55 L 16 115/54 L 95 07/21/18 10:04 130/57 L Intake & Output: Intake & Output 07/18/18 07/19/18 07/20/18 07/21/18 23:59 23:59 23:59 23:59 Intake Total 765.9 2894.1 Output Total 300 300 Balance 465.9 2594.1 - Objective General Appearance: positive: No acute distress, Alert. negative: Lethargic Eyes Bilateral: positive: Normal inspection, PERRL, No lid inflammation, Conjunctivae nml ENT: positive: ENT inspection nml, Pharynx nml, No signs of dehydration. negative: Purulent nasal drainage, Pharyngeal erythema, Oral lesions Neck: positive: Nml inspection, Thyroid nml, No JVD, Trachea midline. negative: Thyromegaly, Lymphadenopathy (R), Lymphadenopathy (L), Stiff neck, Swelling/bruising, Tracheal deviation Respiratory: positive: Chest non-tender, No respiratory distress, Breath sounds nml. negative: Wheezes, Rales, Rhonchi Cardiovascular: positive: Regular rate & rhythm, No murmur, No gallop. negative: Irregularly irregular, Extrasystoles, Tachycardia, Bradycardia, JVD present, Systolic murmur, Diastolic murmur Peripheral Pulses: 2+ Radial (R), 2+ Radial (L), 2+ Dorsalis pedis (R), 2+ Dorsalis pedis (L) Abdomen: positive: Non-tender, No organomegaly, Nml bowel sounds, No distention. negative: Tenderness, Guarding, Rebound Back: positive: Nml inspection. negative: CVA tenderness (R), CVA tenderness (L) Skin: positive: Color nml, No rash, Warm, Dry. negative: Cyanosis, Diaphoresis, Pallor Extremities: positive: Non-tender, Full ROM, Nml appearance. negative: Calf tenderness, Joint swelling, Lonnie's sign/cords Neurologic/Psychiatric: positive: Motor nml, Sensation nml, Mood/affect nml. negative: Weakness, Sensory loss, Facial droop, Slurred/abnml speech, Depressed mood/affect - Lab Results Fish Bones: 07/21/18 05:24 07/21/18 13:05 Other Labs: Lab Results x24hrs 07/21/18 07/21/18 07/21/18 Range/Units 16:08 13:05 12:10 WBC (4.8-10.8) x10^3/uL RBC (4.20-5.40) 10^6/uL Hgb (12.0-16.0) g/dL Hct (37.0-47.0) % MCV (81.0-99.0) fL MCH (27.0-31.0) pg MCHC (32.0-36.0) g/dL RDW (12.0-15.0) % Plt Count (130-450) 10^3/uL MPV (7.9-10.8) fL Neut # (Auto) (1.5-6.6) 10^3/uL Lymph # (Auto) (1.5-3.5) 10^3/uL [place] # (Auto) (0.0-1.0) 10^3/uL Eos # (Auto) (0.0-0.7) 10^3/uL Baso # (Auto) (0.0-0.1) 10^3/uL Absolute Nucleated RBC x10^3/uL Nucleated RBC % /100WBC PT (9.9-12.6) secs INR (0.8-1.2) VBG pH (7.31-7.41) VBG pCO2 (41-51) mmHg VBG pO2 (25-47) mmHg VBG HCO3 (23-28) mmol/L VBG Total CO2 (24-29) mmol/L VBG O2 Saturation (60-80) % VBG Base Excess (-2 - +2) mmol/L Sodium (135-145) mmol/L Potassium 3.7 (3.5-5.0) mmol/L Chloride (101-111) mmol/L Carbon Dioxide (21-32) mmol/L Anion Gap (6-13) BUN (6-20) mg/dL Creatinine (0.4-1.0) mg/dL Estimated GFR (MDRD) (>89) Glucose (70-100) mg/dL POC Whole Bld Glucose 129 H (70 - 100) mg/dL Glycated Hemoglobin (4.6-6.2) % Estim Average Glucose (70-100) Lactic Acid 2.3 H (0.5-2.2) mmol/L Calcium (8.5-10.3) mg/dL Phosphorus (2.5-4.6) mg/dL Magnesium (1.7-2.8) mg/dL Total Bilirubin (0.2-1.0) mg/dL AST (10-42) IU/L ALT (10-60) IU/L Alkaline Phosphatase (42-121) IU/L Total Creatine Kinase (22-269) IU/L Troponin I (<0.49) ng/mL Total Protein (6.7-8.2) g/dL Albumin (3.2-5.5) g/dL Globulin (2.1-4.2) g/dL Albumin/Globulin Ratio (1.0-2.2) Lipase (22-51) U/L TSH (0.34-5.60) uIU/mL Prolactin ng/mL Urine Color Urine Clarity (CLEAR) Urine pH (5.0-7.5) PH Ur Specific [place] (1.002-1.030) Urine Protein (NEGATIVE) mg/dL Urine Glucose (UA) (NEGATIVE) mg/dL Urine Ketones (NEGATIVE) mg/dL Urine Occult Blood (NEGATIVE) Urine Nitrite (NEGATIVE) Urine Bilirubin (NEGATIVE) Urine Urobilinogen (NORMAL) E.U./dL Ur Leukocyte Esterase (NEGATIVE) Ur Microscopic Review Urine Culture Comments Serum Ketones (NEGATIVE) 07/21/18 07/21/18 07/21/18 Range/Units 11:51 10:05 09:34 WBC (4.8-10.8) x10^3/uL RBC (4.20-5.40) 10^6/uL Hgb (12.0-16.0) g/dL Hct (37.0-47.0) % MCV (81.0-99.0) fL MCH (27.0-31.0) pg MCHC (32.0-36.0) g/dL RDW (12.0-15.0) % Plt Count (130-450) 10^3/uL MPV (7.9-10.8) fL Neut # (Auto) (1.5-6.6) 10^3/uL Lymph # (Auto) (1.5-3.5) 10^3/uL [place] # (Auto) (0.0-1.0) 10^3/uL Eos # (Auto) (0.0-0.7) 10^3/uL Baso # (Auto) (0.0-0.1) 10^3/uL Absolute Nucleated RBC x10^3/uL Nucleated RBC % /100WBC PT (9.9-12.6) secs INR (0.8-1.2) VBG pH (7.31-7.41) VBG pCO2 (41-51) mmHg VBG pO2 (25-47) mmHg VBG HCO3 (23-28) mmol/L VBG Total CO2 (24-29) mmol/L VBG O2 Saturation (60-80) % VBG Base Excess (-2 - +2) mmol/L Sodium (135-145) mmol/L Potassium (3.5-5.0) mmol/L Chloride (101-111) mmol/L Carbon Dioxide (21-32) mmol/L Anion Gap (6-13) BUN (6-20) mg/dL Creatinine (0.4-1.0) mg/dL Estimated GFR (MDRD) (>89) Glucose (70-100) mg/dL POC Whole Bld Glucose 78 307 H 441 H (70 - 100) mg/dL Glycated Hemoglobin (4.6-6.2) % Estim Average Glucose (70-100) Lactic Acid (0.5-2.2) mmol/L Calcium (8.5-10.3) mg/dL Phosphorus (2.5-4.6) mg/dL Magnesium (1.7-2.8) mg/dL Total Bilirubin (0.2-1.0) mg/dL AST (10-42) IU/L ALT (10-60) IU/L Alkaline Phosphatase (42-121) IU/L Total Creatine Kinase (22-269) IU/L Troponin I (<0.49) ng/mL Total Protein (6.7-8.2) g/dL Albumin (3.2-5.5) g/dL Globulin (2.1-4.2) g/dL Albumin/Globulin Ratio (1.0-2.2) Lipase (22-51) U/L TSH (0.34-5.60) uIU/mL Prolactin ng/mL Urine Color Urine Clarity (CLEAR) Urine pH (5.0-7.5) PH Ur Specific [place] (1.002-1.030) Urine Protein (NEGATIVE) mg/dL Urine Glucose (UA) (NEGATIVE) mg/dL Urine Ketones (NEGATIVE) mg/dL Urine Occult Blood (NEGATIVE) Urine Nitrite (NEGATIVE) Urine Bilirubin (NEGATIVE) Urine Urobilinogen (NORMAL) E.U./dL Ur Leukocyte Esterase (NEGATIVE) Ur Microscopic Review Urine Culture Comments Serum Ketones (NEGATIVE) 07/21/18 07/21/18 07/21/18 Range/Units 09:15 09:00 07:40 WBC (4.8-10.8) x10^3/uL RBC (4.20-5.40) 10^6/uL Hgb (12.0-16.0) g/dL Hct (37.0-47.0) % MCV (81.0-99.0) fL MCH (27.0-31.0) pg MCHC (32.0-36.0) g/dL RDW (12.0-15.0) % Plt Count (130-450) 10^3/uL MPV (7.9-10.8) fL Neut # (Auto) (1.5-6.6) 10^3/uL Lymph # (Auto) (1.5-3.5) 10^3/uL [place] # (Auto) (0.0-1.0) 10^3/uL Eos # (Auto) (0.0-0.7) 10^3/uL Baso # (Auto) (0.0-0.1) 10^3/uL Absolute Nucleated RBC x10^3/uL Nucleated RBC % /100WBC PT (9.9-12.6) secs INR (0.8-1.2) VBG pH (7.31-7.41) VBG pCO2 (41-51) mmHg VBG pO2 (25-47) mmHg VBG HCO3 (23-28) mmol/L VBG Total CO2 (24-29) mmol/L VBG O2 Saturation (60-80) % VBG Base Excess (-2 - +2) mmol/L Sodium (135-145) mmol/L Potassium (3.5-5.0) mmol/L Chloride (101-111) mmol/L Carbon Dioxide (21-32) mmol/L Anion Gap (6-13) BUN (6-20) mg/dL Creatinine (0.4-1.0) mg/dL Estimated GFR (MDRD) (>89) Glucose (70-100) mg/dL POC Whole Bld Glucose 423 H (70 - 100) mg/dL Glycated Hemoglobin (4.6-6.2) % Estim Average Glucose (70-100) Lactic Acid 3.0 H* 3.2 H* (0.5-2.2) mmol/L Calcium (8.5-10.3) mg/dL Phosphorus (2.5-4.6) mg/dL Magnesium (1.7-2.8) mg/dL Total Bilirubin (0.2-1.0) mg/dL AST (10-42) IU/L ALT (10-60) IU/L Alkaline Phosphatase (42-121) IU/L Total Creatine Kinase (22-269) IU/L Troponin I (<0.49) ng/mL Total Protein (6.7-8.2) g/dL Albumin (3.2-5.5) g/dL Globulin (2.1-4.2) g/dL Albumin/Globulin Ratio (1.0-2.2) Lipase (22-51) U/L TSH (0.34-5.60) uIU/mL Prolactin ng/mL Urine Color Urine Clarity (CLEAR) Urine pH (5.0-7.5) PH Ur Specific [place] (1.002-1.030) Urine Protein (NEGATIVE) mg/dL Urine Glucose (UA) (NEGATIVE) mg/dL Urine Ketones (NEGATIVE) mg/dL Urine Occult Blood (NEGATIVE) Urine Nitrite (NEGATIVE) Urine Bilirubin (NEGATIVE) Urine Urobilinogen (NORMAL) E.U./dL Ur Leukocyte Esterase (NEGATIVE) Ur Microscopic Review Urine Culture Comments Serum Ketones (NEGATIVE) 07/21/18 07/21/18 07/21/18 Range/Units 05:24 05:24 05:24 WBC (4.8-10.8) x10^3/uL RBC (4.20-5.40) 10^6/uL Hgb (12.0-16.0) g/dL Hct (37.0-47.0) % MCV (81.0-99.0) fL MCH (27.0-31.0) pg MCHC (32.0-36.0) g/dL RDW (12.0-15.0) % Plt Count (130-450) 10^3/uL MPV (7.9-10.8) fL Neut # (Auto) (1.5-6.6) 10^3/uL Lymph # (Auto) (1.5-3.5) 10^3/uL [place] # (Auto) (0.0-1.0) 10^3/uL Eos # (Auto) (0.0-0.7) 10^3/uL Baso # (Auto) (0.0-0.1) 10^3/uL Absolute Nucleated RBC x10^3/uL Nucleated RBC % /100WBC PT (9.9-12.6) secs INR (0.8-1.2) VBG pH (7.31-7.41) VBG pCO2 (41-51) mmHg VBG pO2 (25-47) mmHg VBG HCO3 (23-28) mmol/L VBG Total CO2 (24-29) mmol/L VBG O2 Saturation (60-80) % VBG Base Excess (-2 - +2) mmol/L Sodium 137 (135-145) mmol/L Potassium 3.7 (3.5-5.0) mmol/L Chloride 98 L (101-111) mmol/L Carbon Dioxide 28 (21-32) mmol/L Anion Gap 11.0 (6-13) BUN 21 H (6-20) mg/dL Creatinine 0.9 (0.4-1.0) mg/dL Estimated GFR (MDRD) 59 L (>89) Glucose 441 H (70-100) mg/dL POC Whole Bld Glucose (70 - 100) mg/dL Glycated Hemoglobin 9.4 H (4.6-6.2) % Estim Average Glucose 223 H (70-100) Lactic Acid 2.9 H (0.5-2.2) mmol/L Calcium 8.6 (8.5-10.3) mg/dL Phosphorus 2.8 (2.5-4.6) mg/dL Magnesium 2.3 (1.7-2.8) mg/dL Total Bilirubin 0.5 (0.2-1.0) mg/dL AST 36 (10-42) IU/L ALT 26 (10-60) IU/L Alkaline Phosphatase 75 (42-121) IU/L Total Creatine Kinase (22-269) IU/L Troponin I (<0.49) ng/mL Total Protein 6.1 L (6.7-8.2) g/dL Albumin 3.5 (3.2-5.5) g/dL Globulin 2.6 (2.1-4.2) g/dL Albumin/Globulin Ratio 1.3 (1.0-2.2) Lipase (22-51) U/L TSH (0.34-5.60) uIU/mL Prolactin ng/mL Urine Color Urine Clarity (CLEAR) Urine pH (5.0-7.5) PH Ur Specific [place] (1.002-1.030) Urine Protein (NEGATIVE) mg/dL Urine Glucose (UA) (NEGATIVE) mg/dL Urine Ketones (NEGATIVE) mg/dL Urine Occult Blood (NEGATIVE) Urine Nitrite (NEGATIVE) Urine Bilirubin (NEGATIVE) Urine Urobilinogen (NORMAL) E.U./dL Ur Leukocyte Esterase (NEGATIVE) Ur Microscopic Review Urine Culture Comments Serum Ketones (NEGATIVE) 10/18/18 10/18/18 10/18/18 Range/Units 05:24 05:24 03:06 WBC 6.6 (4.8-10.8) x10^3/uL RBC 3.67 L (4.20-5.40) 10^6/uL Hgb 11.1 L (12.0-16.0) g/dL Hct 32.9 L (37.0-47.0) % MCV 89.6 (81.0-99.0) fL MCH 30.3 (27.0-31.0) pg MCHC 33.8 (32.0-36.0) g/dL RDW 13.2 (12.0-15.0) % Plt Count 159 (130-450) 10^3/uL MPV 8.9 (7.9-10.8) fL Neut # (Auto) 5.2 (1.5-6.6) 10^3/uL Lymph # (Auto) 0.9 L (1.5-3.5) 10^3/uL [place] # (Auto) 0.5 (0.0-1.0) 10^3/uL Eos # (Auto) 0.0 (0.0-0.7) 10^3/uL Baso # (Auto) 0.0 (0.0-0.1) 10^3/uL Absolute Nucleated RBC 0.00 x10^3/uL Nucleated RBC % 0.0 /100WBC PT 10.7 (9.9-12.6) secs INR 0.9 (0.8-1.2) VBG pH (7.31-7.41) VBG pCO2 (41-51) mmHg VBG pO2 (25-47) mmHg VBG HCO3 (23-28) mmol/L VBG Total CO2 (24-29) mmol/L VBG O2 Saturation (60-80) % VBG Base Excess (-2 - +2) mmol/L Sodium (135-145) mmol/L Potassium (3.5-5.0) mmol/L Chloride (101-111) mmol/L Carbon Dioxide (21-32) mmol/L Anion Gap (6-13) BUN (6-20) mg/dL Creatinine (0.4-1.0) mg/dL Estimated GFR (MDRD) (>89) Glucose (70-100) mg/dL POC Whole Bld Glucose 419 H (70 - 100) mg/dL Glycated Hemoglobin (4.6-6.2) % Estim Average Glucose (70-100) Lactic Acid (0.5-2.2) mmol/L Calcium (8.5-10.3) mg/dL Phosphorus (2.5-4.6) mg/dL Magnesium (1.7-2.8) mg/dL Total Bilirubin (0.2-1.0) mg/dL AST (10-42) IU/L ALT (10-60) IU/L Alkaline Phosphatase (42-121) IU/L Total Creatine Kinase (22-269) IU/L Troponin I (<0.49) ng/mL Total Protein (6.7-8.2) g/dL Albumin (3.2-5.5) g/dL Globulin (2.1-4.2) g/dL Albumin/Globulin Ratio (1.0-2.2) Lipase (22-51) U/L TSH (0.34-5.60) uIU/mL Prolactin ng/mL Urine Color Urine Clarity (CLEAR) Urine pH (5.0-7.5) PH Ur Specific [place] (1.002-1.030) Urine Protein (NEGATIVE) mg/dL Urine Glucose (UA) (NEGATIVE) mg/dL Urine Ketones (NEGATIVE) mg/dL Urine Occult Blood (NEGATIVE) Urine Nitrite (NEGATIVE) Urine Bilirubin (NEGATIVE) Urine Urobilinogen (NORMAL) E.U./dL Ur Leukocyte Esterase (NEGATIVE) Ur Microscopic Review Urine Culture Comments Serum Ketones (NEGATIVE) 07/20/18 07/20/18 07/20/18 Range/Units 21:45 20:44 20:44 WBC (4.8-10.8) x10^3/uL RBC (4.20-5.40) 10^6/uL Hgb (12.0-16.0) g/dL Hct (37.0-47.0) % MCV (81.0-99.0) fL MCH (27.0-31.0) pg MCHC (32.0-36.0) g/dL RDW (12.0-15.0) % Plt Count (130-450) 10^3/uL MPV (7.9-10.8) fL Neut # (Auto) (1.5-6.6) 10^3/uL Lymph # (Auto) (1.5-3.5) 10^3/uL [place] # (Auto) (0.0-1.0) 10^3/uL Eos # (Auto) (0.0-0.7) 10^3/uL Baso # (Auto) (0.0-0.1) 10^3/uL Absolute Nucleated RBC x10^3/uL Nucleated RBC % /100WBC PT (9.9-12.6) secs INR (0.8-1.2) VBG pH 7.384 (7.31-7.41) VBG pCO2 42.9 (41-51) mmHg VBG pO2 65.5 H (25-47) mmHg VBG HCO3 25.0 (23-28) mmol/L VBG Total CO2 26.4 (24-29) mmol/L VBG O2 Saturation 91.7 H (60-80) % VBG Base Excess -0.1 (-2 - +2) mmol/L Sodium (135-145) mmol/L Potassium (3.5-5.0) mmol/L Chloride (101-111) mmol/L Carbon Dioxide (21-32) mmol/L Anion Gap (6-13) BUN (6-20) mg/dL Creatinine (0.4-1.0) mg/dL Estimated GFR (MDRD) (>89) Glucose (70-100) mg/dL POC Whole Bld Glucose (70 - 100) mg/dL Glycated Hemoglobin (4.6-6.2) % Estim Average Glucose (70-100) Lactic Acid (0.5-2.2) mmol/L Calcium (8.5-10.3) mg/dL Phosphorus (2.5-4.6) mg/dL Magnesium (1.7-2.8) mg/dL Total Bilirubin (0.2-1.0) mg/dL AST (10-42) IU/L ALT (10-60) IU/L Alkaline Phosphatase (42-121) IU/L Total Creatine Kinase (22-269) IU/L Troponin I (<0.49) ng/mL Total Protein (6.7-8.2) g/dL Albumin (3.2-5.5) g/dL Globulin (2.1-4.2) g/dL Albumin/Globulin Ratio (1.0-2.2) Lipase (22-51) U/L TSH (0.34-5.60) uIU/mL Prolactin ng/mL Urine Color YELLOW Urine Clarity CLEAR (CLEAR) Urine pH 6.0 (5.0-7.5) PH Ur Specific [place] <=1.005 (1.002-1.030) Urine Protein NEGATIVE (NEGATIVE) mg/dL Urine Glucose (UA) >=1000 H (NEGATIVE) mg/dL Urine Ketones NEGATIVE (NEGATIVE) mg/dL Urine Occult Blood [place] (NEGATIVE) Urine Nitrite NEGATIVE (NEGATIVE) Urine Bilirubin NEGATIVE (NEGATIVE) Urine Urobilinogen 0.2 (NORMAL) (NORMAL) E.U./dL Ur Leukocyte Esterase NEGATIVE (NEGATIVE) Ur Microscopic Review NOT INDICATED Urine Culture Comments NOT INDICATED Serum Ketones NEGATIVE (NEGATIVE) 07/20/18 07/20/18 07/20/18 Range/Units 20:44 20:44 20:44 WBC (4.8-10.8) x10^3/uL RBC (4.20-5.40) 10^6/uL Hgb (12.0-16.0) g/dL Hct (37.0-47.0) % MCV (81.0-99.0) fL MCH (27.0-31.0) pg MCHC (32.0-36.0) g/dL RDW (12.0-15.0) % Plt Count (130-450) 10^3/uL MPV (7.9-10.8) fL Neut # (Auto) (1.5-6.6) 10^3/uL Lymph # (Auto) (1.5-3.5) 10^3/uL [place] # (Auto) (0.0-1.0) 10^3/uL Eos # (Auto) (0.0-0.7) 10^3/uL Baso # (Auto) (0.0-0.1) 10^3/uL Absolute Nucleated RBC x10^3/uL Nucleated RBC % /100WBC PT (9.9-12.6) secs INR (0.8-1.2) VBG pH (7.31-7.41) VBG pCO2 (41-51) mmHg VBG pO2 (25-47) mmHg VBG HCO3 (23-28) mmol/L VBG Total CO2 (24-29) mmol/L VBG O2 Saturation (60-80) % VBG Base Excess (-2 - +2) mmol/L Sodium 133 L (135-145) mmol/L Potassium 3.9 (3.5-5.0) mmol/L Chloride 91 L (101-111) mmol/L Carbon Dioxide 29 (21-32) mmol/L Anion Gap 13.0 (6-13) BUN 34 H (6-20) mg/dL Creatinine 1.4 H (0.4-1.0) mg/dL Estimated GFR (MDRD) 35 L (>89) Glucose 685 H* (70-100) mg/dL POC Whole Bld Glucose (70 - 100) mg/dL Glycated Hemoglobin (4.6-6.2) % Estim Average Glucose (70-100) Lactic Acid (0.5-2.2) mmol/L Calcium 9.0 (8.5-10.3) mg/dL Phosphorus (2.5-4.6) mg/dL Magnesium 1.6 L (1.7-2.8) mg/dL Total Bilirubin 0.4 (0.2-1.0) mg/dL AST 45 H (10-42) IU/L ALT 29 (10-60) IU/L Alkaline Phosphatase 88 (42-121) IU/L Total Creatine Kinase 44 (22-269) IU/L Troponin I < 0.04 (<0.49) ng/mL Total Protein 6.9 (6.7-8.2) g/dL Albumin 4.1 (3.2-5.5) g/dL Globulin 2.8 (2.1-4.2) g/dL Albumin/Globulin Ratio 1.5 (1.0-2.2) Lipase 89 H (22-51) U/L TSH (0.34-5.60) uIU/mL Prolactin 36.38 ng/mL Urine Color Urine Clarity (CLEAR) Urine pH (5.0-7.5) PH Ur Specific [place] (1.002-1.030) Urine Protein (NEGATIVE) mg/dL Urine Glucose (UA) (NEGATIVE) mg/dL Urine Ketones (NEGATIVE) mg/dL Urine Occult Blood (NEGATIVE) Urine Nitrite (NEGATIVE) Urine Bilirubin (NEGATIVE) Urine Urobilinogen (NORMAL) E.U./dL Ur Leukocyte Esterase (NEGATIVE) Ur Microscopic Review Urine Culture Comments Serum Ketones (NEGATIVE) 07/20/18 07/20/18 Range/Units 20:44 20:26 WBC 4.5 L (4.8-10.8) x10^3/uL RBC 3.92 L (4.20-5.40) 10^6/uL Hgb 11.6 L (12.0-16.0) g/dL Hct 35.7 L (37.0-47.0) % MCV 91.1 (81.0-99.0) fL MCH 29.7 (27.0-31.0) pg MCHC 32.6 (32.0-36.0) g/dL RDW 13.4 (12.0-15.0) % Plt Count 186 (130-450) 10^3/uL MPV 9.2 (7.9-10.8) fL Neut # (Auto) 3.2 (1.5-6.6) 10^3/uL Lymph # (Auto) 0.8 L (1.5-3.5) 10^3/uL [place] # (Auto) 0.4 (0.0-1.0) 10^3/uL Eos # (Auto) 0.1 (0.0-0.7) 10^3/uL Baso # (Auto) 0.0 (0.0-0.1) 10^3/uL Absolute Nucleated RBC 0.00 x10^3/uL Nucleated RBC % 0.0 /100WBC PT (9.9-12.6) secs INR (0.8-1.2) VBG pH (7.31-7.41) VBG pCO2 (41-51) mmHg VBG pO2 (25-47) mmHg VBG HCO3 (23-28) mmol/L VBG Total CO2 (24-29) mmol/L VBG O2 Saturation (60-80) % VBG Base Excess (-2 - +2) mmol/L Sodium (135-145) mmol/L Potassium (3.5-5.0) mmol/L Chloride (101-111) mmol/L Carbon Dioxide (21-32) mmol/L Anion Gap (6-13) BUN (6-20) mg/dL Creatinine (0.4-1.0) mg/dL Estimated GFR (MDRD) (>89) Glucose (70-100) mg/dL POC Whole Bld Glucose (70 - 100) mg/dL Glycated Hemoglobin (4.6-6.2) % Estim Average Glucose (70-100) Lactic Acid (0.5-2.2) mmol/L Calcium (8.5-10.3) mg/dL Phosphorus (2.5-4.6) mg/dL Magnesium (1.7-2.8) mg/dL Total Bilirubin (0.2-1.0) mg/dL AST (10-42) IU/L ALT (10-60) IU/L Alkaline Phosphatase (42-121) IU/L Total Creatine Kinase (22-269) IU/L Troponin I (<0.49) ng/mL Total Protein (6.7-8.2) g/dL Albumin (3.2-5.5) g/dL Globulin (2.1-4.2) g/dL Albumin/Globulin Ratio (1.0-2.2) Lipase (22-51) U/L TSH 6.13 H (0.34-5.60) uIU/mL Prolactin ng/mL Urine Color Urine Clarity (CLEAR) Urine pH (5.0-7.5) PH Ur Specific [place] (1.002-1.030) Urine Protein (NEGATIVE) mg/dL Urine Glucose (UA) (NEGATIVE) mg/dL Urine Ketones (NEGATIVE) mg/dL Urine Occult Blood (NEGATIVE) Urine Nitrite (NEGATIVE) Urine Bilirubin (NEGATIVE) Urine Urobilinogen (NORMAL) E.U./dL Ur Leukocyte Esterase (NEGATIVE) Ur Microscopic Review Urine Culture Comments Serum Ketones (NEGATIVE) ABX Reporting Has patient been on IV antibiotics over the past 48 hours?: No Assessment/Plan - Problem List (1) Altered mental status Impression: plan and treatment pt is alert and oriented to herself. continue neuro check correct hyperglycemia, electrolyts there is no seizure (2) Hyperglycemia Conclusion/Plan: pt continue to have hyperglycemia, A1C is 9.4 hold metformin add Novolog 20+10 units, continue ACHS, slide scale, add Lantus on QPM continue hypoglycemia protocol order potassium and recheck potassium when ordered insulin (3) FATUMA (acute kidney injury) resolved, continue hydration gently continue lab monitor (4) Hypomagnesemia resolved (5) Hyponatremia resolved (6) Hypothyroidism TSH is normal, continue synthyroid (7) Hypertension stable continue home meds vital monitor (8) Hyperlipidemia stable. continue home statin (9) elevated lactic acid lactic acid 3.0, continue 2.9 bolus of NS, continue use insulin to control glucose, continue hydration. recheck lactic acid pt's hemodynamic is stable now. check ECHO to monitor cardiac status Qualifiers: Altered mental status type: disorientation Qualified Code(s): R41.0 - Disorientation, unspecified
[2018-07-21] MEDS: INSULIN GLARGINE 300 UNIT/3 ML PEN SUBQ SCH (20:00)
[2018-07-21] MEDS: PRAVASTATIN 40 MG TABLET PO SCH (20:00)
[2018-07-21] MEDS ORDERED: INSULIN GLARGINE 300 UNIT/3 ML PEN SUBQ SCH (21:00)
[2018-07-22] MEDS: SODIUM CHLORIDE FLUSH 0.9% 10 ML SYRINGE IVP SCH ×3 (01:32→17:41)
[2018-07-22] MEDS: SODIUM CHLORIDE 0.9% 1,000 ML IV SCH ×2 (01:32→10:01)
[2018-07-22 06:05] LABS: BASOPHILS % (AUTO) 0.8 %; EOSINOPHILS # (AUTO) 0.1 10^3/uL (0.0-0.7); EOSINOPHILS % (AUTO) 2.7 %; HGB - HEMOGLOBIN 9.5 g/dL (12.0-16.0); LYMPHOCYTES # (AUTO) 1.7 10^3/uL (1.5-3.5); LYMPHOCYTES % (AUTO) 32.6 %; MEAN CORPUSCULAR HGB CONC 33.4 g/dL (32.0-36.0); MEAN CORPUSCULAR VOLUME 89.8 fL (81.0-99.0); MEAN PLATELET VOLUME 8.7 fL (7.9-10.8); MONOCYTES # (AUTO) 0.4 10^3/uL (0.0-1.0); MONOCYTES % (AUTO) 8.6 %; NEUTROPHILS # (AUTO) 2.8 10^3/uL (1.5-6.6); NEUTROPHILS % (AUTO) 55.3 %; PLT - PLATELET COUNT 150 10^3/uL (130-450); RED BLOOD COUNT 3.16 10^6/uL (4.20-5.40); RED CELL DISTRIBUTION WIDTH 13.6 % (12.0-15.0); WHITE BLOOD COUNT 5.1 x10^3/uL (4.8-10.8)
[2018-07-22 06:10] LABS: ALBUMIN 2.9 g/dL (3.2-5.5); ALBUMIN/GLOBULIN RATIO 1.4 (1.0-2.2); BILIRUBIN,TOTAL 0.7 mg/dL (0.2-1.0); CALCIUM 7.8 mg/dL (8.5-10.3); MAGNESIUM 1.9 mg/dL (1.7-2.8); PHOSPHORUS 2.3 mg/dL (2.5-4.6)
[2018-07-22] MEDS: LEVOTHYROXINE 25 MCG TABLET PO SCH (06:39)
[2018-07-22] MEDS ORDERED: NON FORMULARY MED (Levothyroxine Sodium [Synthroid] 50 MCG) PO SCH (07:00)
[2018-07-22 08:35] LABS: MEAN RETIC VALUE 109.7; RED BLOOD COUNT 3.15 10^6/uL (4.20-5.40)
[2018-07-22 09:03] LABS: FERRITIN 16.7 ng/mL (11.0-306.8)
[2018-07-22 09:08] LABS: % IRON SATURATION 19 % (20-50); IRON 57 ug/dL (28-170); TOTAL IRON BINDING CAPACITY 302 ug/dL (250-450); TRANSFERRIN 216 mg/dL (192-382)
[2018-07-22] MEDS: METOPROLOL TARTRATE 25 MG TABLET PO SCH (09:59)
[2018-07-22] MEDS: FERROUS SULFATE 325 MG TABLET PO SCH (10:00)
[2018-07-22] MEDS: ASPIRIN CHEW 81 MG TABLET PO SCH (10:00)
[2018-07-22] MEDS: POLYETHYLENE GLYCOL 3350 17 GM PACKET PO SCH (10:01)
[2018-07-22] MEDS: ENOXAPARIN 30 MG/0.3 ML SYRINGE SUBQ SCH (10:01)
[2018-07-22] MEDS: FAMOTIDINE 20 MG TABLET PO SCH (10:01)
[2018-07-22] MEDS: INSULIN ASPART 300 UNIT/3 ML PEN SUBQ SCH ×4 (10:02→21:00)
--- NOTE | 2018-07-22 15:38 | PROVIDER PROGRESS NOTE ---
Subjective - Prog Note Date Prog Note Date: 07/22/18 - Subjective Pt reports feeling: Improved Subjective: pt report she feel better today. she state she did not have fever, cheat pain. Current Medications - Current Medications Current Medications: Active Medications Acetaminophen (Tylenol) 650 mg PO Q4HR PRN PRN Reason: Pain 1 to 4 Aspirin ([place] Aspirin) 81 mg PO DAILY [facility] Last Admin: 07/22/18 10:00 Dose: 81 mg Enoxaparin Sodium (Lovenox) 30 mg SUBQ DAILY [facility] Last Admin: 07/22/18 10:01 Dose: 30 mg Famotidine (Pepcid) 20 mg PO DAILY [facility] Last Admin: 07/22/18 10:01 Dose: 20 mg Ferrous Sulfate (Feosol) 325 mg PO DAILYWM [facility] Last Admin: 07/22/18 10:00 Dose: 325 mg Sodium Chloride (Normal Saline 0.9%) 1,000 mls @ 75 mls/hr IV .[id number] [facility] Last Admin: 07/22/18 10:01 Dose: 75 mls/hr Insulin Aspart (Novolog) 1 - 9 unit SUBQ 0800,1200,1700,2100 [facility]; Protocol Last Admin: 07/22/18 12:04 Dose: 7 unit Insulin Glargine (Lantus Solostar) 5 unit SUBQ QPM [facility] Last Admin: 07/21/18 20:00 Dose: 5 unit Levothyroxine Sodium (Synthroid) 50 mcg PO QDAC [facility] Last Admin: 07/22/18 06:39 Dose: 50 mcg Loratadine (Claritin) 10 mg PO DAILY PRN PRN Reason: Cold Symptons Metoprolol Tartrate (Lopressor) 25 mg PO DAILY [facility] Last Admin: 07/22/18 09:59 Dose: 25 mg Ondansetron HCl (Zofran Inj) 4 mg IVP Q6HR PRN PRN Reason: Nausea / Vomiting Last Admin: 07/21/18 17:17 Dose: 4 mg Oxycodone HCl (Roxicodone) 5 mg PO Q4HR PRN PRN Reason: Pain 5 to 7 Last Admin: 07/21/18 19:36 Dose: 5 mg Polyethylene Glycol (Miralax) 17 gm PO DAILY [facility] Last Admin: 07/22/18 10:01 Dose: 17 gm Pravastatin Sodium (Pravachol) 40 mg PO QPM [facility] Last Admin: 07/21/18 20:00 Dose: Not Given Prochlorperazine Edisylate (Compazine Inj) 10 mg IVP Q6HR PRN PRN Reason: Nausea / Vomiting Last Admin: 07/21/18 19:35 Dose: 10 mg Promethazine HCl (Phenergan Inj) 25 mg IM Q6HR PRN PRN Reason: Nausea / Vomiting Sodium Chloride (Normal Saline Flush 0.9%) 10 ml IVP PRN PRN PRN Reason: NEEDED PER PROVIDER ORDERS Last Admin: 07/21/18 17:18 Dose: 10 ml Sodium Chloride (Normal Saline Flush 0.9%) 10 ml IVP 0100,0900,1700 [facility] Last Admin: 07/22/18 10:01 Dose: 10 ml Aspirin Chewable [[place] Aspirin] 81 mg PO DAILY 07/20/18 Furosemide [Lasix] 20 mg PO DAILY 07/20/18 Loratadine 10 mg PO DAILY PRN 07/20/18 Metoprolol Tartrate 25 mg PO DAILY 07/20/18 Pravastatin [Pravachol] 40 mg PO QPM 07/20/18 metFORMIN [Glucophage] 850 mg PO BID 07/20/18 Levothyroxine Sodium [Synthroid] 50 mcg PO QDAC 07/21/18 Objective - Vital Signs/Intake & Output Reviewed Vital Signs: Yes Vital Signs: Vital Signs x48h Temp Pulse Resp BP Pulse Ox 07/22/18 12:35 36.9 C 54 L 16 125/65 07/22/18 07:51 36.8 C 59 L 16 179/79 H 96 Intake & Output: Intake & Output 07/19/18 07/20/18 07/21/18 07/22/18 23:59 23:59 23:59 23:59 Intake Total 765.9 2894.1 2303.330 Output Total 300 300 Balance 465.9 2594.1 2303.330 - Objective General Appearance: positive: No acute distress, Alert. negative: Lethargic Eyes Bilateral: positive: Normal inspection, PERRL, No lid inflammation, Conjunctivae nml ENT: positive: ENT inspection nml, Pharynx nml, No signs of dehydration. negative: Purulent nasal drainage, Pharyngeal erythema, Oral lesions Neck: positive: Nml inspection, Thyroid nml, No JVD, Trachea midline. negative: Thyromegaly, Lymphadenopathy (R), Lymphadenopathy (L), Swelling/bruising, T dalia deviation Respiratory: positive: Chest non-tender, No respiratory distress, Breath sounds nml. negative: Wheezes, Rales, Rhonchi Cardiovascular: positive: Regular rate & rhythm, No murmur, No gallop. negative: Irregularly irregular, Extrasystoles, Tachycardia, Bradycardia, JVD present, Systolic murmur, Diastolic murmur Peripheral Pulses: 2+ Radial (R), 2+ Radial (L), 2+ Dorsalis pedis (R), 2+ Dorsalis pedis (L) Abdomen: positive: Non-tender, No organomegaly, Nml bowel sounds, No distention. negative: Tenderness, Guarding, Rebound Back: positive: Nml inspection. negative: CVA tenderness (R), CVA tenderness (L) Skin: positive: Color nml, No rash, Warm, Dry. negative: Cyanosis, Diaphoresis, Pallor Extremities: positive: Non-tender, Full ROM, Nml appearance. negative: Calf tenderness, Joint swelling, Lonnie's sign/cords Neurologic/Psychiatric: positive: Sensation nml, Mood/affect nml. negative: Weakness, Sensory loss, Facial droop, Slurred/abnml speech, Depressed mood/affect - Lab Results Fish Bones: 07/22/18 05:47 07/22/18 05:47 Other Labs: Lab Results x24hrs 07/22/18 07/22/18 07/22/18 Range/Units 11:14 07:47 05:47 WBC (4.8-10.8) x10^3/uL RBC (4.20-5.40) 10^6/uL Hgb (12.0-16.0) g/dL Hct (37.0-47.0) % MCV (81.0-99.0) fL MCH (27.0-31.0) pg MCHC (32.0-36.0) g/dL RDW (12.0-15.0) % Plt Count (130-450) 10^3/uL MPV (7.9-10.8) fL Reticulocyte % (Auto) (0.5-2.3) % Neut # (Auto) (1.5-6.6) 10^3/uL Lymph # (Auto) (1.5-3.5) 10^3/uL [place]ck[place] # (Auto) (0.0-1.0) 10^3/uL Eos # (Auto) (0.0-0.7) 10^3/uL Baso # (Auto) (0.0-0.1) 10^3/uL Absolute Nucleated RBC x10^3/uL Nucleated RBC % /100WBC Absolute Retic (0.020-0.110) 10^6/uL Sodium (135-145) mmol/L Potassium (3.5-5.0) mmol/L Chloride (101-111) mmol/L Carbon Dioxide (21-32) mmol/L Anion Gap (6-13) BUN (6-20) mg/dL Creatinine (0.4-1.0) mg/dL Estimated GFR (MDRD) (>89) Glucose (70-100) mg/dL POC Whole Bld Glucose 296 H 126 H (70 - 100) mg/dL Lactic Acid (0.5-2.2) mmol/L Calcium (8.5-10.3) mg/dL Phosphorus (2.5-4.6) mg/dL Magnesium (1.7-2.8) mg/dL Iron (28-170) ug/dL TIBC (250-450) ug/dL % Saturation (20-50) % Transferrin (192-382) mg/dL Ferritin (11.0-306.8) ng/mL Total Bilirubin (0.2-1.0) mg/dL AST (10-42) IU/L ALT (10-60) IU/L Alkaline Phosphatase (42-121) IU/L Lactate Dehydrogenase 183 (91-225) IU/L Total Protein (6.7-8.2) g/dL Albumin (3.2-5.5) g/dL Globulin (2.1-4.2) g/dL Albumin/Globulin Ratio (1.0-2.2) Vitamin B12 (180-914) pg/mL 07/22/18 07/22/18 07/22/18 Range/Units 05:47 05:47 05:47 WBC (4.8-10.8) x10^3/uL RBC 3.15 L (4.20-5.40) 10^6/uL Hgb (12.0-16.0) g/dL Hct (37.0-47.0) % MCV (81.0-99.0) fL MCH (27.0-31.0) pg MCHC (32.0-36.0) g/dL RDW (12.0-15.0) % Plt Count (130-450) 10^3/uL MPV (7.9-10.8) fL Reticulocyte % (Auto) 1.19 (0.5-2.3) % Neut # (Auto) (1.5-6.6) 10^3/uL Lymph # (Auto) (1.5-3.5) 10^3/uL [place]ck[place] # (Auto) (0.0-1.0) 10^3/uL Eos # (Auto) (0.0-0.7) 10^3/uL Baso # (Auto) (0.0-0.1) 10^3/uL Absolute Nucleated RBC x10^3/uL Nucleated RBC % /100WBC Absolute Retic 0.038 (0.020-0.110) 10^6/uL Sodium (135-145) mmol/L Potassium (3.5-5.0) mmol/L Chloride (101-111) mmol/L Carbon Dioxide (21-32) mmol/L Anion Gap (6-13) BUN (6-20) mg/dL Creatinine (0.4-1.0) mg/dL Estimated GFR (MDRD) (>89) Glucose (70-100) mg/dL POC Whole Bld Glucose (70 - 100) mg/dL Lactic Acid (0.5-2.2) mmol/L Calcium (8.5-10.3) mg/dL Phosphorus (2.5-4.6) mg/dL Magnesium (1.7-2.8) mg/dL Iron 57 (28-170) ug/dL TIBC 302 (250-450) ug/dL % Saturation 19 L (20-50) % Transferrin 216 (192-382) mg/dL Ferritin 16.7 (11.0-306.8) ng/mL Total Bilirubin (0.2-1.0) mg/dL AST (10-42) IU/L ALT (10-60) IU/L Alkaline Phosphatase (42-121) IU/L Lactate Dehydrogenase (91-225) IU/L Total Protein (6.7-8.2) g/dL Albumin (3.2-5.5) g/dL Globulin (2.1-4.2) g/dL Albumin/Globulin Ratio (1.0-2.2) Vitamin B12 204 (180-914) pg/mL 07/22/18 07/22/18 07/21/18 Range/Units 05:47 05:47 19:34 WBC 5.1 (4.8-10.8) x10^3/uL RBC 3.16 L (4.20-5.40) 10^6/uL Hgb 9.5 L (12.0-16.0) g/dL Hct 28.3 L (37.0-47.0) % MCV 89.8 (81.0-99.0) fL MCH 30.0 (27.0-31.0) pg MCHC 33.4 (32.0-36.0) g/dL RDW 13.6 (12.0-15.0) % Plt Count 150 (130-450) 10^3/uL MPV 8.7 (7.9-10.8) fL Reticulocyte % (Auto) (0.5-2.3) % Neut # (Auto) 2.8 (1.5-6.6) 10^3/uL Lymph # (Auto) 1.7 (1.5-3.5) 10^3/uL [place]ck[place] # (Auto) 0.4 (0.0-1.0) 10^3/uL Eos # (Auto) 0.1 (0.0-0.7) 10^3/uL Baso # (Auto) 0.0 (0.0-0.1) 10^3/uL Absolute Nucleated RBC 0.00 x10^3/uL Nucleated RBC % 0.0 /100WBC Absolute Retic (0.020-0.110) 10^6/uL Sodium 139 (135-145) mmol/L Potassium 4.2 (3.5-5.0) mmol/L Chloride 107 (101-111) mmol/L Carbon Dioxide 27 (21-32) mmol/L Anion Gap 5.0 L (6-13) BUN 17 (6-20) mg/dL Creatinine 1.0 (0.4-1.0) mg/dL Estimated GFR (MDRD) 52 L (>89) Glucose 143 H (70-100) mg/dL POC Whole Bld Glucose 171 H (70 - 100) mg/dL Lactic Acid (0.5-2.2) mmol/L Calcium 7.8 L (8.5-10.3) mg/dL Phosphorus 2.3 L (2.5-4.6) mg/dL Magnesium 1.9 (1.7-2.8) mg/dL Iron (28-170) ug/dL TIBC (250-450) ug/dL % Saturation (20-50) % Transferrin (192-382) mg/dL Ferritin (11.0-306.8) ng/mL Total Bilirubin 0.7 (0.2-1.0) mg/dL AST 72 H (10-42) IU/L ALT 75 H (10-60) IU/L Alkaline Phosphatase 62 (42-121) IU/L Lactate Dehydrogenase (91-225) IU/L Total Protein 5.0 L (6.7-8.2) g/dL Albumin 2.9 L (3.2-5.5) g/dL Globulin 2.1 (2.1-4.2) g/dL Albumin/Globulin Ratio 1.4 (1.0-2.2) Vitamin B12 (180-914) pg/mL 07/21/18 07/21/18 Range/Units 16:08 16:02 WBC (4.8-10.8) x10^3/uL RBC (4.20-5.40) 10^6/uL Hgb (12.0-16.0) g/dL Hct (37.0-47.0) % MCV (81.0-99.0) fL MCH (27.0-31.0) pg MCHC (32.0-36.0) g/dL RDW (12.0-15.0) % Plt Count (130-450) 10^3/uL MPV (7.9-10.8) fL Reticulocyte % (Auto) (0.5-2.3) % Neut # (Auto) (1.5-6.6) 10^3/uL Lymph # (Auto) (1.5-3.5) 10^3/uL [place]ck[place] # (Auto) (0.0-1.0) 10^3/uL Eos # (Auto) (0.0-0.7) 10^3/uL Baso # (Auto) (0.0-0.1) 10^3/uL Absolute Nucleated RBC x10^3/uL Nucleated RBC % /100WBC Absolute Retic (0.020-0.110) 10^6/uL Sodium (135-145) mmol/L Potassium (3.5-5.0) mmol/L Chloride (101-111) mmol/L Carbon Dioxide (21-32) mmol/L Anion Gap (6-13) BUN (6-20) mg/dL Creatinine (0.4-1.0) mg/dL Estimated GFR (MDRD) (>89) Glucose (70-100) mg/dL POC Whole Bld Glucose 129 H (70 - 100) mg/dL Lactic Acid 1.8 (0.5-2.2) mmol/L Calcium (8.5-10.3) mg/dL Phosphorus (2.5-4.6) mg/dL Magnesium (1.7-2.8) mg/dL Iron (28-170) ug/dL TIBC (250-450) ug/dL % Saturation (20-50) % Transferrin (192-382) mg/dL Ferritin (11.0-306.8) ng/mL Total Bilirubin (0.2-1.0) mg/dL AST (10-42) IU/L ALT (10-60) IU/L Alkaline Phosphatase (42-121) IU/L Lactate Dehydrogenase (91-225) IU/L Total Protein (6.7-8.2) g/dL Albumin (3.2-5.5) g/dL Globulin (2.1-4.2) g/dL Albumin/Globulin Ratio (1.0-2.2) Vitamin B12 (180-914) pg/mL ABX Reporting Has patient been on IV antibiotics over the past 48 hours?: No Assessment/Plan - Problem List (1) Altered mental status Impression: impression: 07/22 as pt's baseline, and dementia continue neuro check correct hyperglycemia, electrolyts plan and treatment pt is alert and oriented to herself. continue neuro check correct hyperglycemia, electrolyts there is no seizure (2) Hyperglycemia Conclusion/Plan: hyperglycemia is controlled, continue slide scale hypoglycemia protocol pt continue to have hyperglycemia, A1C is 9.4 hold metformin add Novolog 20+10 units, continue ACHS, slide scale, add Lantus on QPM continue hypoglycemia protocol order potassium and recheck potassium when ordered insulin (3) FATUMA (acute kidney injury) resolved, continue hydration gently continue lab monitor (4) Hypomagnesemia resolved (5) Hyponatremia resolved (6) Hypothyroidism TSH is normal, continue synthyroid (7) Hypertension stable continue home meds vital monitor (8) Hyperlipidemia stable. continue home statin (9) elevated lactic acid 07/22 resolved lactic acid 3.0, continue 2.9 bolus of NS, continue use insulin to control glucose, continue hydration. recheck lactic acid pt's hemodynamic is stable now. check ECHO to monitor cardiac status (10) dementia pt present dementia and forgetful. continue support. pt's caregiver, her daughter, is in hospice. plan pt to be d/c to nurse facility (11) weakness consult with PT and OT, will follow up Qualifiers: Altered mental status type: disorientation Qualified Code(s): R41.0 - Disorientation, unspecified
[2018-07-22] MEDS ORDERED: POTASSIUM CHLORIDE 20 MEQ TABLET PO ONE (16:39)
[2018-07-22] MEDS ORDERED: INSULIN ASPART 300 UNIT/3 ML PEN SUBQ ONE (16:39)
[2018-07-22] MEDS: PRAVASTATIN 40 MG TABLET PO SCH (20:52)
[2018-07-22] MEDS: INSULIN GLARGINE 300 UNIT/3 ML PEN SUBQ SCH (20:53)
[2018-07-23] MEDS: SODIUM CHLORIDE 0.9% 1,000 ML IV SCH ×2 (01:32→16:46)
[2018-07-23] MEDS: SODIUM CHLORIDE FLUSH 0.9% 10 ML SYRINGE IVP SCH ×3 (03:24→16:46)
[2018-07-23] MEDS: LEVOTHYROXINE 25 MCG TABLET PO SCH (06:15)
[2018-07-23 06:35] LABS: BASOPHILS % (AUTO) 0.5 %; EOSINOPHILS # (AUTO) 0.1 10^3/uL (0.0-0.7); EOSINOPHILS % (AUTO) 1.8 %; HGB - HEMOGLOBIN 9.7 g/dL (12.0-16.0); LYMPHOCYTES # (AUTO) 1.8 10^3/uL (1.5-3.5); LYMPHOCYTES % (AUTO) 29.8 %; MEAN CORPUSCULAR HEMOGLOBIN 29.7 pg (27.0-31.0); MEAN CORPUSCULAR HGB CONC 32.9 g/dL (32.0-36.0); MEAN CORPUSCULAR VOLUME 90.2 fL (81.0-99.0); MEAN PLATELET VOLUME 8.4 fL (7.9-10.8); MONOCYTES # (AUTO) 0.5 10^3/uL (0.0-1.0); MONOCYTES % (AUTO) 8.4 %; NEUTROPHILS # (AUTO) 3.6 10^3/uL (1.5-6.6); NEUTROPHILS % (AUTO) 59.5 %; PLT - PLATELET COUNT 146 10^3/uL (130-450); RED BLOOD COUNT 3.26 10^6/uL (4.20-5.40); RED CELL DISTRIBUTION WIDTH 13.5 % (12.0-15.0); WHITE BLOOD COUNT 6.1 x10^3/uL (4.8-10.8)
[2018-07-23 06:47] LABS: ALBUMIN 2.7 g/dL (3.2-5.5); ALBUMIN/GLOBULIN RATIO 1.2 (1.0-2.2); BILIRUBIN,TOTAL 0.5 mg/dL (0.2-1.0); CREATININE 0.9 mg/dL (0.4-1.0); MAGNESIUM 1.8 mg/dL (1.7-2.8); PHOSPHORUS 2.9 mg/dL (2.5-4.6)
[2018-07-23] MEDS: INSULIN ASPART 300 UNIT/3 ML PEN SUBQ SCH ×6 (07:43→21:25)
[2018-07-23] MEDS ORDERED: cloNIDine 0.1 MG TABLET PO PRN (07:56)
[2018-07-23] MEDS: FAMOTIDINE 20 MG TABLET PO SCH (08:10)
[2018-07-23] MEDS: METOPROLOL TARTRATE 25 MG TABLET PO SCH (08:10)
[2018-07-23] MEDS: ASPIRIN CHEW 81 MG TABLET PO SCH (08:10)
[2018-07-23] MEDS: FERROUS SULFATE 325 MG TABLET PO SCH (08:10)
[2018-07-23] MEDS: ENOXAPARIN 30 MG/0.3 ML SYRINGE SUBQ SCH (08:11)
[2018-07-23] MEDS: POLYETHYLENE GLYCOL 3350 17 GM PACKET PO SCH (08:11)
[2018-07-23] MEDS: LISINOPRIL 5 MG TABLET PO SCH (08:36)
--- NOTE | 2018-07-23 16:25 | PROVIDER PROGRESS NOTE ---
Subjective - Prog Note Date Prog Note Date: 07/23/18 - Subjective Pt reports feeling: Improved Objective - Vital Signs/Intake & Output Vital Signs: Vital Signs x48h Temp Pulse Resp BP Pulse Ox 07/23/18 15:31 36.7 C 50 L 18 106/56 L 98 07/23/18 12:15 36.2 C L 44 L 16 116/49 L 95 07/23/18 09:07 52 L 110/44 L Intake & Output: Intake & Output 07/20/18 07/21/18 07/22/18 07/23/18 23:59 23:59 23:59 23:59 Intake Total 765.9 2894.1 3673.330 1565 Output Total 300 300 Balance 465.9 2594.1 3673.330 1565 - Lab Results Fish Bones: 07/23/18 06:20 07/23/18 06:20 Other Labs: Lab Results x24hrs 07/23/18 07/23/18 07/23/18 Range/Units 11:31 07:30 06:20 WBC (4.8-10.8) x10^3/uL RBC (4.20-5.40) 10^6/uL Hgb (12.0-16.0) g/dL Hct (37.0-47.0) % MCV (81.0-99.0) fL MCH (27.0-31.0) pg MCHC (32.0-36.0) g/dL RDW (12.0-15.0) % Plt Count (130-450) 10^3/uL MPV (7.9-10.8) fL Neut # (Auto) (1.5-6.6) 10^3/uL Lymph # (Auto) (1.5-3.5) 10^3/uL [place] # (Auto) (0.0-1.0) 10^3/uL Eos # (Auto) (0.0-0.7) 10^3/uL Baso # (Auto) (0.0-0.1) 10^3/uL Absolute Nucleated RBC x10^3/uL Nucleated RBC % /100WBC Sodium 143 (135-145) mmol/L Potassium 4.5 (3.5-5.0) mmol/L Chloride 111 (101-111) mmol/L Carbon Dioxide 27 (21-32) mmol/L Anion Gap 5.0 L (6-13) BUN 20 (6-20) mg/dL Creatinine 0.9 (0.4-1.0) mg/dL Estimated GFR (MDRD) 59 L (>89) Glucose 94 (70-100) mg/dL POC Whole Bld Glucose 310 H 91 (70 - 100) mg/dL Calcium 8.0 L (8.5-10.3) mg/dL Phosphorus 2.9 (2.5-4.6) mg/dL Magnesium 1.8 (1.7-2.8) mg/dL Total Bilirubin 0.5 (0.2-1.0) mg/dL AST 38 (10-42) IU/L ALT 51 (10-60) IU/L Alkaline Phosphatase 58 (42-121) IU/L Total Protein 5.0 L (6.7-8.2) g/dL Albumin 2.7 L (3.2-5.5) g/dL Globulin 2.3 (2.1-4.2) g/dL Albumin/Globulin Ratio 1.2 (1.0-2.2) 07/23/18 07/22/18 07/22/18 Range/Units 06:20 20:33 16:29 WBC 6.1 (4.8-10.8) x10^3/uL RBC 3.26 L (4.20-5.40) 10^6/uL Hgb 9.7 L (12.0-16.0) g/dL Hct 29.4 L (37.0-47.0) % MCV 90.2 (81.0-99.0) fL MCH 29.7 (27.0-31.0) pg MCHC 32.9 (32.0-36.0) g/dL RDW 13.5 (12.0-15.0) % Plt Count 146 (130-450) 10^3/uL MPV 8.4 (7.9-10.8) fL Neut # (Auto) 3.6 (1.5-6.6) 10^3/uL Lymph # (Auto) 1.8 (1.5-3.5) 10^3/uL [place] # (Auto) 0.5 (0.0-1.0) 10^3/uL Eos # (Auto) 0.1 (0.0-0.7) 10^3/uL Baso # (Auto) 0.0 (0.0-0.1) 10^3/uL Absolute Nucleated RBC 0.00 x10^3/uL Nucleated RBC % 0.0 /100WBC Sodium (135-145) mmol/L Potassium (3.5-5.0) mmol/L Chloride (101-111) mmol/L Carbon Dioxide (21-32) mmol/L Anion Gap (6-13) BUN (6-20) mg/dL Creatinine (0.4-1.0) mg/dL Estimated GFR (MDRD) (>89) Glucose (70-100) mg/dL POC Whole Bld Glucose 114 H 368 H (70 - 100) mg/dL Calcium (8.5-10.3) mg/dL Phosphorus (2.5-4.6) mg/dL Magnesium (1.7-2.8) mg/dL Total Bilirubin (0.2-1.0) mg/dL AST (10-42) IU/L ALT (10-60) IU/L Alkaline Phosphatase (42-121) IU/L Total Protein (6.7-8.2) g/dL Albumin (3.2-5.5) g/dL Globulin (2.1-4.2) g/dL Albumin/Globulin Ratio (1.0-2.2) 07/22/18 Range/Units 16:27 WBC (4.8-10.8) x10^3/uL RBC (4.20-5.40) 10^6/uL Hgb (12.0-16.0) g/dL Hct (37.0-47.0) % MCV (81.0-99.0) fL MCH (27.0-31.0) pg MCHC (32.0-36.0) g/dL RDW (12.0-15.0) % Plt Count (130-450) 10^3/uL MPV (7.9-10.8) fL Neut # (Auto) (1.5-6.6) 10^3/uL Lymph # (Auto) (1.5-3.5) 10^3/uL [place] # (Auto) (0.0-1.0) 10^3/uL Eos # (Auto) (0.0-0.7) 10^3/uL Baso # (Auto) (0.0-0.1) 10^3/uL Absolute Nucleated RBC x10^3/uL Nucleated RBC % /100WBC Sodium (135-145) mmol/L Potassium (3.5-5.0) mmol/L Chloride (101-111) mmol/L Carbon Dioxide (21-32) mmol/L Anion Gap (6-13) BUN (6-20) mg/dL Creatinine (0.4-1.0) mg/dL Estimated GFR (MDRD) (>89) Glucose (70-100) mg/dL POC Whole Bld Glucose 335 H (70 - 100) mg/dL Calcium (8.5-10.3) mg/dL Phosphorus (2.5-4.6) mg/dL Magnesium (1.7-2.8) mg/dL Total Bilirubin (0.2-1.0) mg/dL AST (10-42) IU/L ALT (10-60) IU/L Alkaline Phosphatase (42-121) IU/L Total Protein (6.7-8.2) g/dL Albumin (3.2-5.5) g/dL Globulin (2.1-4.2) g/dL Albumin/Globulin Ratio (1.0-2.2) Assessment/Plan - Problem List (1) Altered mental status Impression: 07/23,improved as her baseline continue neuro check 07/22 as pt's baseline, and dementia continue neuro check correct hyperglycemia, electrolyts plan and treatment pt is alert and oriented to herself. continue neuro check correct hyperglycemia, electrolyts there is no seizure (2) Hyperglycemia Conclusion/Plan: 07/23 adjust Lantus Bid, and order lunch and dinner extral insulin 5 unit since her sugar is still high hyperglycemia is controlled, continue slide scale hypoglycemia protocol pt continue to have hyperglycemia, A1C is 9.4 hold metformin add Novolog 20+10 units, continue ACHS, slide scale, add Lantus on QPM continue hypoglycemia protocol order potassium and recheck potassium when ordered insulin (3) FATUMA (acute kidney injury) resolved, continue hydration gently continue lab monitor (4) Hypomagnesemia resolved (5) Hyponatremia resolved (6) Hypothyroidism TSH is normal, continue synthyroid (7) Hypertension 07/23 elevated BP, add Lisinprolol 5 mg continue BP monitor stable continue home meds vital monitor (8) Hyperlipidemia stable. continue home statin (9) elevated lactic acid 07/22 resolved lactic acid 3.0, continue 2.9 bolus of NS, continue use insulin to control glucose, continue hydration. recheck lactic acid pt's hemodynamic is stable now. check ECHO to monitor cardiac status (10) dementia pt present dementia and forgetful. continue support. pt's caregiver, her daughter, is in hospice. plan pt to be d/c to nurse facility (11) weakness 07/23, continue PT/OT, plan d/c tomorrow to SNF consult with PT and OT, will follow up Qualifiers: Altered mental status type: disorientation Qualified Code(s): R41.0 - Disorientation, unspecified
[2018-07-23] MEDS: PRAVASTATIN 40 MG TABLET PO SCH (21:26)
[2018-07-23] MEDS: INSULIN GLARGINE 300 UNIT/3 ML PEN SUBQ SCH (21:26)
[2018-07-24] MEDS: SODIUM CHLORIDE FLUSH 0.9% 10 ML SYRINGE IVP SCH ×3 (00:09→15:21)
[2018-07-24] MEDS: SODIUM CHLORIDE 0.9% 1,000 ML IV SCH ×3 (05:00→14:54)
[2018-07-24] MEDS: LEVOTHYROXINE 25 MCG TABLET PO SCH (05:37)
[2018-07-24 07:00] LABS: BASOPHILS % (AUTO) 0.5 %; EOSINOPHILS # (AUTO) 0.2 10^3/uL (0.0-0.7); EOSINOPHILS % (AUTO) 4.2 %; HGB - HEMOGLOBIN 9.8 g/dL (12.0-16.0); LYMPHOCYTES % (AUTO) 34.1 %; MEAN CORPUSCULAR HEMOGLOBIN 29.7 pg (27.0-31.0); MEAN CORPUSCULAR HGB CONC 32.8 g/dL (32.0-36.0); MEAN CORPUSCULAR VOLUME 90.4 fL (81.0-99.0); MONOCYTES # (AUTO) 0.5 10^3/uL (0.0-1.0); MONOCYTES % (AUTO) 8.6 %; NEUTROPHILS # (AUTO) 3.1 10^3/uL (1.5-6.6); NEUTROPHILS % (AUTO) 52.6 %; PLT - PLATELET COUNT 146 10^3/uL (130-450); RED CELL DISTRIBUTION WIDTH 13.3 % (12.0-15.0)
[2018-07-24 07:13] LABS: ALBUMIN 2.7 g/dL (3.2-5.5); ALBUMIN/GLOBULIN RATIO 1.3 (1.0-2.2); BILIRUBIN,TOTAL 0.6 mg/dL (0.2-1.0); CALCIUM 7.9 mg/dL (8.5-10.3); CREATININE 1.1 mg/dL (0.4-1.0); TOTAL PROTEIN 4.8 g/dL (6.7-8.2)
[2018-07-24] MEDS: FERROUS SULFATE 325 MG TABLET PO SCH (08:01)
[2018-07-24] MEDS: ASPIRIN CHEW 81 MG TABLET PO SCH (08:01)
[2018-07-24] MEDS: LISINOPRIL 5 MG TABLET PO SCH (08:01)
[2018-07-24] MEDS: FAMOTIDINE 20 MG TABLET PO SCH (08:01)
[2018-07-24] MEDS: METOPROLOL TARTRATE 25 MG TABLET PO SCH (08:01)
[2018-07-24] MEDS: POLYETHYLENE GLYCOL 3350 17 GM PACKET PO SCH (08:02)
[2018-07-24] MEDS: INSULIN ASPART 300 UNIT/3 ML PEN SUBQ SCH ×5 (08:03→20:15)
[2018-07-24] MEDS: ENOXAPARIN 30 MG/0.3 ML SYRINGE SUBQ SCH (08:03)
[2018-07-24] MEDS: INSULIN GLARGINE 300 UNIT/3 ML PEN SUBQ SCH ×2 (08:04→21:56)
[2018-07-24] MEDS ORDERED: INSULIN ASPART 300 UNIT/3 ML PEN SUBQ SCH (12:00)
--- NOTE | 2018-07-24 15:42 | PROVIDER PROGRESS NOTE ---
Subjective - Prog Note Date Prog Note Date: 07/24/18 - Subjective Pt reports feeling: Improved Subjective: pt is doing well, no complaint. pt is pending for replacement to SNF Current Medications - Current Medications Current Medications: Active Medications Acetaminophen (Tylenol) 650 mg PO Q4HR PRN PRN Reason: Pain 1 to 4 Aspirin ([place] Stanley Aspirin) 81 mg PO DAILY [facility] Last Admin: 07/24/18 08:01 Dose: 81 mg Clonidine HCl (Catapres) 0.1 mg PO BID PRN PRN Reason: Hypertensive Emergency Last Admin: 07/23/18 08:10 Dose: 0.1 mg Enoxaparin Sodium (Lovenox) 30 mg SUBQ DAILY [facility] Last Admin: 07/24/18 08:03 Dose: 30 mg Famotidine (Pepcid) 20 mg PO DAILY [facility] Last Admin: 07/24/18 08:01 Dose: 20 mg Ferrous Sulfate (Feosol) 325 mg PO DAILYWM [facility] Last Admin: 07/24/18 08:01 Dose: 325 mg Sodium Chloride (Normal Saline 0.9%) 1,000 mls @ 100 mls/hr IV .Q10H [facility] Stop: 07/25/18 03:36 Last Admin: 07/24/18 14:54 Dose: 100 mls/hr Insulin Aspart (Novolog) 2 - 10 unit SUBQ 0800,1200,1700,2100 [facility]; Protocol Last Admin: 07/24/18 11:47 Dose: 6 unit Insulin Aspart (Novolog) 5 unit SUBQ QDLUNCH [facility]; Protocol Last Admin: 07/24/18 11:47 Dose: 5 unit Insulin Aspart (Novolog) 5 unit SUBQ QDDINNER [facility]; Protocol Last Admin: 07/23/18 16:51 Dose: 5 unit Insulin Glargine (Lantus Solostar) 5 unit SUBQ BID [facility] Last Admin: 07/24/18 08:04 Dose: 5 unit Levothyroxine Sodium (Synthroid) 50 mcg PO QDAC [facility] Last Admin: 07/24/18 05:37 Dose: 50 mcg Lisinopril (Zestril) 5 mg PO DAILY [facility] Last Admin: 07/24/18 08:01 Dose: 5 mg Loratadine (Claritin) 10 mg PO DAILY PRN PRN Reason: Cold Symptons Metoprolol Tartrate (Lopressor) 25 mg PO DAILY [facility] Last Admin: 07/24/18 08:01 Dose: 25 mg Ondansetron HCl (Zofran Inj) 4 mg IVP Q6HR PRN PRN Reason: Nausea / Vomiting Last Admin: 07/21/18 17:17 Dose: 4 mg Oxycodone HCl (Roxicodone) 5 mg PO Q4HR PRN PRN Reason: Pain 5 to 7 Last Admin: 07/21/18 19:36 Dose: 5 mg Polyethylene Glycol (Miralax) 17 gm PO DAILY [facility] Last Admin: 07/24/18 08:02 Dose: 17 gm Pravastatin Sodium (Pravachol) 40 mg PO QPM [facility] Last Admin: 07/23/18 21:26 Dose: 40 mg Prochlorperazine Edisylate (Compazine Inj) 10 mg IVP Q6HR PRN PRN Reason: Nausea / Vomiting Last Admin: 07/21/18 19:35 Dose: 10 mg Promethazine HCl (Phenergan Inj) 25 mg IM Q6HR PRN PRN Reason: Nausea / Vomiting Sodium Chloride (Normal Saline Flush 0.9%) 10 ml IVP PRN PRN PRN Reason: NEEDED PER PROVIDER ORDERS Last Admin: 07/21/18 17:18 Dose: 10 ml Sodium Chloride (Normal Saline Flush 0.9%) 10 ml IVP 0100,0900,1700 [facility] Last Admin: 07/24/18 15:21 Dose: Not Given Aspirin Chewable [[facility] Stanley Aspirin] 81 mg PO DAILY 07/20/18 Furosemide [Lasix] 20 mg PO DAILY 07/20/18 Loratadine 10 mg PO DAILY PRN 07/20/18 Metoprolol Tartrate 25 mg PO DAILY 07/20/18 Pravastatin [Pravachol] 40 mg PO QPM 07/20/18 metFORMIN [Glucophage] 850 mg PO BID 07/20/18 Levothyroxine Sodium [Synthroid] 50 mcg PO QDAC 07/21/18 Objective - Vital Signs/Intake & Output Reviewed Vital Signs: Yes Vital Signs: Vital Signs x48h Temp Pulse Resp BP Pulse Ox 07/24/18 15:36 36.4 C L 53 L 18 157/54 H 100 07/24/18 08:00 36.6 C 51 L 16 164/59 H 96 Intake & Output: Intake & Output 07/21/18 07/22/18 07/23/18 07/24/18 23:59 23:59 23:59 23:59 Intake Total 2894.1 3673.330 1865 2548.880 Output Total 300 Balance 2594.1 3673.330 1865 2548.880 - Objective General Appearance: positive: No acute distress, Alert. negative: Lethargic Eyes Bilateral: positive: Normal inspection, PERRL, No lid inflammation, Conjunctivae nml ENT: positive: ENT inspection nml, Pharynx nml, No signs of dehydration. negative: Purulent nasal drainage, Pharyngeal erythema, Oral lesions Neck: positive: Nml inspection, Thyroid nml, No JVD, Trachea midline. negative: Thyromegaly, Lymphadenopathy (R), Lymphadenopathy (L), Stiff neck, Carotid bruit, Swelling/bruising, Tracheal deviation Respiratory: positive: Chest non-tender, No respiratory distress, Breath sounds nml. negative: Wheezes, Rales, Rhonchi Cardiovascular: positive: Regular rate & rhythm, No murmur, No gallop. negative: Irregularly irregular, Extrasystoles, Tachycardia, Bradycardia, JVD present, Systolic murmur, Diastolic murmur Peripheral Pulses: 2+ Radial (R), 2+ Radial (L), 2+ Dorsalis pedis (R), 2+ Dorsalis pedis (L) Abdomen: positive: Non-tender, No organomegaly, Nml bowel sounds, No distention. negative: Tenderness, Guarding, Rebound Back: positive: Nml inspection. negative: CVA tenderness (R), CVA tenderness (L) Skin: positive: Color nml, No rash, Warm, Dry. negative: Cyanosis, Diaphoresis, Pallor, Skin rash Extremities: positive: Non-tender, Full ROM, Nml appearance. negative: Calf tenderness, Joint swelling, Lonnie's sign/cords Neurologic/Psychiatric: positive: Motor nml, Sensation nml, Mood/affect nml. negative: Weakness, Sensory loss, Facial droop, Slurred/abnml speech, Depressed mood/affect - Lab Results Fish Bones: 07/24/18 06:28 07/24/18 06:28 Other Labs: Lab Results x24hrs 10/21/18 10/21/18 10/21/18 Range/Units 11:20 07:53 06:28 WBC (4.8-10.8) x10^3/uL RBC (4.20-5.40) 10^6/uL Hgb (12.0-16.0) g/dL Hct (37.0-47.0) % MCV (81.0-99.0) fL MCH (27.0-31.0) pg MCHC (32.0-36.0) g/dL RDW (12.0-15.0) % Plt Count (130-450) 10^3/uL MPV (7.9-10.8) fL Neut # (Auto) (1.5-6.6) 10^3/uL Lymph # (Auto) (1.5-3.5) 10^3/uL Nye # (Auto) (0.0-1.0) 10^3/uL Eos # (Auto) (0.0-0.7) 10^3/uL Baso # (Auto) (0.0-0.1) 10^3/uL Absolute Nucleated RBC x10^3/uL Nucleated RBC % /100WBC Sodium 137 (135-145) mmol/L Potassium 3.9 (3.5-5.0) mmol/L Chloride 108 (101-111) mmol/L Carbon Dioxide 25 (21-32) mmol/L Anion Gap 4.0 L (6-13) BUN 21 H (6-20) mg/dL Creatinine 1.1 H (0.4-1.0) mg/dL Estimated GFR (MDRD) 47 L (>89) Glucose 103 H (70-100) mg/dL POC Whole Bld Glucose 233 H 98 (70 - 100) mg/dL Calcium 7.9 L (8.5-10.3) mg/dL Total Bilirubin 0.6 (0.2-1.0) mg/dL AST 26 (10-42) IU/L ALT 40 (10-60) IU/L Alkaline Phosphatase 56 (42-121) IU/L Total Protein 4.8 L (6.7-8.2) g/dL Albumin 2.7 L (3.2-5.5) g/dL Globulin 2.1 (2.1-4.2) g/dL Albumin/Globulin Ratio 1.3 (1.0-2.2) 07/24/18 07/23/18 07/23/18 Range/Units 06:28 20:21 16:30 WBC 6.0 (4.8-10.8) x10^3/uL RBC 3.30 L (4.20-5.40) 10^6/uL Hgb 9.8 L (12.0-16.0) g/dL Hct 29.8 L (37.0-47.0) % MCV 90.4 (81.0-99.0) fL MCH 29.7 (27.0-31.0) pg MCHC 32.8 (32.0-36.0) g/dL RDW 13.3 (12.0-15.0) % Plt Count 146 (130-450) 10^3/uL MPV 9.0 (7.9-10.8) fL Neut # (Auto) 3.1 (1.5-6.6) 10^3/uL Lymph # (Auto) 2.0 (1.5-3.5) 10^3/uL Nye # (Auto) 0.5 (0.0-1.0) 10^3/uL Eos # (Auto) 0.2 (0.0-0.7) 10^3/uL Baso # (Auto) 0.0 (0.0-0.1) 10^3/uL Absolute Nucleated RBC 0.01 x10^3/uL Nucleated RBC % 0.1 /100WBC Sodium (135-145) mmol/L Potassium (3.5-5.0) mmol/L Chloride (101-111) mmol/L Carbon Dioxide (21-32) mmol/L Anion Gap (6-13) BUN (6-20) mg/dL Creatinine (0.4-1.0) mg/dL Estimated GFR (MDRD) (>89) Glucose (70-100) mg/dL POC Whole Bld Glucose 181 H 211 H (70 - 100) mg/dL Calcium (8.5-10.3) mg/dL Total Bilirubin (0.2-1.0) mg/dL AST (10-42) IU/L ALT (10-60) IU/L Alkaline Phosphatase (42-121) IU/L Total Protein (6.7-8.2) g/dL Albumin (3.2-5.5) g/dL Globulin (2.1-4.2) g/dL Albumin/Globulin Ratio (1.0-2.2) ABX Reporting Has patient been on IV antibiotics over the past 48 hours?: No Assessment/Plan - Problem List (1) Altered mental status Impression: Impression: 07/24 resolved, as pt's baseline 07/23,improved as her baseline continue neuro check 07/22 as pt's baseline, and dementia continue neuro check correct hyperglycemia, electrolyts plan and treatment pt is alert and oriented to herself. continue neuro check correct hyperglycemia, electrolyts there is no seizure (2) Hyperglycemia Conclusion/Plan: 07/24 better controlled, continue slide scale 07/23 adjust Lantus Bid, and order lunch and dinner extral insulin 5 unit since her sugar is still high hyperglycemia is controlled, continue slide scale hypoglycemia protocol pt continue to have hyperglycemia, A1C is 9.4 hold metformin add Novolog 20+10 units, continue ACHS, slide scale, add Lantus on QPM continue hypoglycemia protocol order potassium and recheck potassium when ordered insulin (3) FATUMA (acute kidney injury) resolved, continue hydration gently continue lab monitor (4) Hypomagnesemia resolved (5) Hyponatremia resolved (6) Hypothyroidism TSH is normal, continue synthyroid (7) Hypertension 07/23 elevated BP, add Lisinprolol 5 mg continue BP monitor stable continue home meds vital monitor (8) Hyperlipidemia stable. continue home statin (9) elevated lactic acid 07/22 resolved lactic acid 3.0, continue 2.9 bolus of NS, continue use insulin to control glucose, continue hydration. recheck lactic acid pt's hemodynamic is stable now. check ECHO to monitor cardiac status (10) dementia pt present dementia and forgetful. continue support. pt's caregiver, her daughter, is in hospice. plan pt to be d/c to nurse facility (11) weakness 07/24, continue PT/OT, plan d/c to SNF. replacement is pending 07/23, continue PT/OT, plan d/c tomorrow to SNF Qualifiers: Altered mental status type: disorientation Qualified Code(s): R41.0 - Disorientation, unspecified
[2018-07-24] MEDS: PRAVASTATIN 40 MG TABLET PO SCH (20:15)
[2018-07-25] MEDS: SODIUM CHLORIDE 0.9% 1,000 ML IV SCH (01:36)
[2018-07-25] MEDS: SODIUM CHLORIDE FLUSH 0.9% 10 ML SYRINGE IVP SCH ×3 (05:05→17:50)
[2018-07-25 06:03] LABS: BASOPHILS % (AUTO) 0.5 %; EOSINOPHILS # (AUTO) 0.2 10^3/uL (0.0-0.7); EOSINOPHILS % (AUTO) 3.3 %; HGB - HEMOGLOBIN 9.7 g/dL (12.0-16.0); LYMPHOCYTES # (AUTO) 1.8 10^3/uL (1.5-3.5); LYMPHOCYTES % (AUTO) 29.2 %; MEAN CORPUSCULAR HGB CONC 33.4 g/dL (32.0-36.0); MEAN CORPUSCULAR VOLUME 89.7 fL (81.0-99.0); MEAN PLATELET VOLUME 8.8 fL (7.9-10.8); MONOCYTES # (AUTO) 0.5 10^3/uL (0.0-1.0); MONOCYTES % (AUTO) 8.7 %; NEUTROPHILS # (AUTO) 3.7 10^3/uL (1.5-6.6); NEUTROPHILS % (AUTO) 58.3 %; PLT - PLATELET COUNT 153 10^3/uL (130-450); RED BLOOD COUNT 3.22 10^6/uL (4.20-5.40); RED CELL DISTRIBUTION WIDTH 13.8 % (12.0-15.0); WHITE BLOOD COUNT 6.3 x10^3/uL (4.8-10.8)
[2018-07-25] MEDS: LEVOTHYROXINE 25 MCG TABLET PO SCH (06:13)
[2018-07-25 06:14] LABS: ALBUMIN 2.8 g/dL (3.2-5.5); ALBUMIN/GLOBULIN RATIO 1.5 (1.0-2.2); BILIRUBIN,TOTAL 0.6 mg/dL (0.2-1.0); CALCIUM 8.3 mg/dL (8.5-10.3); CREATININE 0.8 mg/dL (0.4-1.0); TOTAL PROTEIN 4.7 g/dL (6.7-8.2)
[2018-07-25] MEDS: LISINOPRIL 5 MG TABLET PO SCH (08:12)
[2018-07-25] MEDS: FERROUS SULFATE 325 MG TABLET PO SCH (08:12)
[2018-07-25] MEDS: POLYETHYLENE GLYCOL 3350 17 GM PACKET PO SCH (08:12)
[2018-07-25] MEDS: FAMOTIDINE 20 MG TABLET PO SCH (08:12)
[2018-07-25] MEDS: ASPIRIN CHEW 81 MG TABLET PO SCH (08:13)
[2018-07-25] MEDS: METOPROLOL TARTRATE 25 MG TABLET PO SCH (08:13)
[2018-07-25] MEDS: INSULIN GLARGINE 300 UNIT/3 ML PEN SUBQ SCH ×2 (08:14→21:02)
[2018-07-25] MEDS: INSULIN ASPART 300 UNIT/3 ML PEN SUBQ SCH ×4 (08:15→21:00)
[2018-07-25] MEDS: ENOXAPARIN 30 MG/0.3 ML SYRINGE SUBQ SCH (08:16)
--- NOTE | 2018-07-25 11:33 | Discharge Plan ---
"Discharge Plan for SNF / [facility] - Discharge Plan And Transition Orders Disposition: 03 SNF DC/Xfer Condition: Poor Allergies and Adverse Reactions: Allergies Allergy/AdvReac Type Severity Reaction Status Date / Time No Known Drug Allergies Allergy Verified 07/20/18 20:35 - SNF / RESIDENTIAL Transition Orders Admit to (Facility): [facility] Under the care of (Name): Aurora Elaine Discharge Diagnosis: hyperglycemia, DM2, dementia, AMS, FATUMA, HTN, HLD, weakness Medicare Certification Statement: I certify that [facility] care is medically necessary on a continuing basis for any of the conditions for which she/he is receiving care during hospitalization. Notify PCP of admission and forward orders to primary provider for signature. Weight on admission and: Daily Call PCP immediately if weight increases by: 2 kg Other Notification Orders: Call PCP immediately if patient develops dyspnea, chest pain/tightness or edema. House Bowel Program: Yes Additional Bowel Program Orders: If no BM after 2 days, nurse may give M.O.M. 30ml PO PRN and/or ducolax Supp 1 NC and/or ELIER 250mg P.O., and/or senna 1-2 tabs PO. On day 3 nurse may give repeat above order until residents constipation is resolved. Annual Influenza Vaccine (between Jun 04 and January 01): Yes Two-step PPD per [facility] [phone] or approved exception documents: Yes Treatments & Other Orders: pt may follow up her PCP Dr. Gordillo, when she is arrival to [facility], may followup mechanical designer as out-pt. Medication Orders: PLEASE REFER TO THE DISCHARGE MEDICATION LIST. Insulin Orders?: Yes - Medications New Prescriptions: Ferrous Sulfate 325 mg PO DAILY #15 tablet Insulin Aspart [NovoLOG] 5 unit SUBQ QDLUNCH #1 pen Insulin Aspart [NovoLOG] 2 - 10 unit SUBQ 0800,1200,1700,2100 #1 pen Insulin Glargine [Lantus Solostar] 5 unit SUBQ BID #1 pen Lisinopril [Zestril] 5 mg PO DAILY #10 tablet - Diet Type: Geriatric Texture: Regular Liquids: Thin May have monthly special meal: Yes - Therapies | Activity Therapy: Evaluation | Treat if indicated: PT, OT Rehabilitation Potential: Maximize functional status Activity: Activity as Tolerated Additional Instructions: pt may follow up her PCP, Dr. Gordillo, when she is arrival to [facility], may followup mechanical designer as out-pt."
[2018-07-25] MEDS ORDERED: INSULIN ASPART 300 UNIT/3 ML PEN SUBQ SCH (12:00)
--- NOTE | 2018-07-25 12:35 | DISCHARGE SUMMARY ---
Discharge Summary Discharge Date: 07/25/18 Condition at Discharge: Poor Discharge Disposition: 03 [facility] DC/Xfer - ALLERGIES Allergies/Adverse Reactions: Allergies Allergy/AdvReac Type Severity Reaction Status Date / Time No Known Drug Allergies Allergy Verified 07/20/18 20:35 - MEDICATIONS Home Medications: Ambulatory Orders Medication Instructions Recorded Confirmed Aspirin Chewable [[facility] Stanley 81 mg PO DAILY 07/20/18 07/21/18 Aspirin] Furosemide [Lasix] 20 mg PO DAILY 07/20/18 07/21/18 Loratadine 10 mg PO DAILY PRN 07/20/18 07/21/18 Metoprolol Tartrate 25 mg PO DAILY 07/20/18 07/21/18 Pravastatin [Pravachol] 40 mg PO QPM 07/20/18 07/21/18 Levothyroxine Sodium [Synthroid] 50 mcg PO QDAC 07/21/18 07/21/18 Ferrous Sulfate 325 mg PO DAILY #15 tablet 07/25/18 Insulin Aspart [NovoLOG] 2 - 10 unit SUBQ 07/25/18 0800,1200,1700,2100 #1 pen Insulin Aspart [NovoLOG] 5 unit SUBQ QDLUNCH #1 pen 07/25/18 Insulin Glargine [Lantus Solostar] 5 unit SUBQ BID #1 pen 07/25/18 Lisinopril [Zestril] 5 mg PO DAILY #10 tablet 07/25/18 - LABS Result Diagrams: 07/25/18 05:36 07/25/18 05:36
--- NOTE | 2018-07-25 13:44 | Discharge Plan ---
"Discharge Plan for SNF / [facility] - Discharge Plan And Transition Orders Disposition: 03 SNF DC/Xfer Condition: Poor Allergies and Adverse Reactions: Allergies Allergy/AdvReac Type Severity Reaction Status Date / Time No Known Drug Allergies Allergy Verified 07/20/18 20:35 - SNF / LONG-TERM Transition Orders Medicare Certification Statement: I certify that [facility] is medically necessary on a continuing basis for any of the conditions for which she/he is receiving care during hospitalization. Notify PCP of admission and forward orders to primary provider for signature. Other Notification Orders: Call PCP immediately if patient develops dyspnea, chest pain/tightness or edema. Additional Bowel Program Orders: If no BM after 2 days, nurse may give M.O.M. 30ml PO PRN and/or ducolax Supp 1 PA and/or ELIER 250mg P.O., and/or senna 1-2 tabs PO. On day 3 nurse may give repeat above order until residents constipation is resolved. Medication Orders: PLEASE REFER TO THE DISCHARGE MEDICATION LIST. - Medications New Prescriptions: Ferrous Sulfate 325 mg PO DAILY #15 tablet Insulin Aspart [NovoLOG] 5 unit SUBQ QDLUNCH #1 pen Insulin Aspart [NovoLOG] 2 - 10 unit SUBQ 0800,1200,1700,2100 #1 pen Insulin Glargine [Lantus Solostar] 5 unit SUBQ BID #1 pen Lisinopril [Zestril] 5 mg PO DAILY #10 tablet - Diet Type: Geriatric - Therapies | Activity Additional Instructions: pt may follow up her PCP, Dr. Gordillo, when she is arrival to [facility], may followup printer assistant as out-pt. Insulin Orders - SNF Basal | Correction | Custom Orders: Diagnosis: Diabetes Initiate hypo and hyperglycemia protocols for BG <70 and BG >375. May check BG PRN for signs/symptoms of dysglycemia. Frequency of BG checks: [AC/Meal/HS] Basal Insulin: [] Lantus 100 units / ml inject subq as follows: [5 unit bid (PM,AM)] [] Other: [] Correction Insulin: - Select the type of insulin below [Choose: Novolog/Humalog]100 units /ml insulin inject subq per orders indicate below [] LOW DOSE [] MODERATE DOSE [x] MODERATE/HIGH DOSE [] HIGH DOSE GB UNITS GB UNITS GB UNITS GB UNITS 61-140 0 UNITS 61-140 0 UNITS 61-140 0 UNITS 61-140 0 UNITS 141-175 1 UNITS 141-175 1 UNITS 141-175 2 UNITS 141-175 3 UNITS 176-225 2 UNITS 176-225 3 UNITS 176-225 4 UNITS 176-225 5 UNITS 226-275 3 UNITS 226-275 5 UNITS 226-275 6 UNITS 226-275 7 UNITS 276-325 4 UNITS 276-325 7 UNITS 276-325 8 UNITS 276-325 9 UNITS 326-375 5 UNITS 326-375 9 UNITS 326-375 10 UNITS 326-375 11 UNITS >375 CONTACT MD >375 CONTACT MD >375 CONTACT MD >375 CONTACT MD Custom Dosing: [Choose: Novolog/Humalog] 100 units/ml Insulin inject subq as follows: GB Units 61-140 [] Units 141-175 [] Units 176-225 [] Units 226-275 [] Units 276-325 []Units 326-375 [] Units >375 Contact MD add additional 5 unit Novolog for the Lunch if blood glucose is above 300"
--- NOTE | 2018-07-25 14:37 | PROVIDER PROGRESS NOTE ---
Subjective - Prog Note Date Prog Note Date: 07/25/18 - Subjective Pt reports feeling: Improved Subjective: pt is planned to d/c SNF today. SW called pt's daughter, her daughter agreed to be d/c to [facility] per SW reported to me. But pt's daughter now disagree to be d/c to [facility], request to be d/c to [facility]. Current Medications - Current Medications Current Medications: Active Medications Acetaminophen (Tylenol) 650 mg PO Q4HR PRN PRN Reason: Pain 1 to 4 Aspirin ([place] Aspirin) 81 mg PO DAILY [facility] Last Admin: 07/25/18 08:13 Dose: 81 mg Clonidine HCl (Catapres) 0.1 mg PO BID PRN PRN Reason: Hypertensive Emergency Last Admin: 07/23/18 08:10 Dose: 0.1 mg Enoxaparin Sodium (Lovenox) 30 mg SUBQ DAILY [facility] Last Admin: 07/25/18 08:16 Dose: 30 mg Famotidine (Pepcid) 20 mg PO DAILY [facility] Last Admin: 07/25/18 08:12 Dose: 20 mg Ferrous Sulfate (Feosol) 325 mg PO DAILYWM [facility] Last Admin: 07/25/18 08:12 Dose: 325 mg Insulin Aspart (Novolog) 2 - 10 unit SUBQ 0800,1200,1700,2100 [facility]; Protocol Last Admin: 07/25/18 11:52 Dose: 10 unit Insulin Aspart (Novolog) 5 unit SUBQ QDLUNCH [facility]; Protocol Last Admin: 07/25/18 11:53 Dose: 5 unit Insulin Glargine (Lantus Solostar) 5 unit SUBQ BID [facility] Last Admin: 07/25/18 08:14 Dose: 5 unit Levothyroxine Sodium (Synthroid) 50 mcg PO QDAC [facility] Last Admin: 07/25/18 06:13 Dose: 50 mcg Lisinopril (Zestril) 5 mg PO DAILY [facility] Last Admin: 07/25/18 08:12 Dose: 5 mg Loratadine (Claritin) 10 mg PO DAILY PRN PRN Reason: Cold Symptons Metoprolol Tartrate (Lopressor) 25 mg PO DAILY [facility] Last Admin: 07/25/18 08:13 Dose: 25 mg Ondansetron HCl (Zofran Inj) 4 mg IVP Q6HR PRN PRN Reason: Nausea / Vomiting Last Admin: 07/21/18 17:17 Dose: 4 mg Oxycodone HCl (Roxicodone) 5 mg PO Q4HR PRN PRN Reason: Pain 5 to 7 Last Admin: 07/21/18 19:36 Dose: 5 mg Polyethylene Glycol (Miralax) 17 gm PO DAILY [facility] Last Admin: 07/25/18 08:12 Dose: 17 gm Pravastatin Sodium (Pravachol) 40 mg PO QPM [facility] Last Admin: 07/24/18 20:15 Dose: 40 mg Prochlorperazine Edisylate (Compazine Inj) 10 mg IVP Q6HR PRN PRN Reason: Nausea / Vomiting Last Admin: 07/21/18 19:35 Dose: 10 mg Promethazine HCl (Phenergan Inj) 25 mg IM Q6HR PRN PRN Reason: Nausea / Vomiting Sodium Chloride (Normal Saline Flush 0.9%) 10 ml IVP PRN PRN PRN Reason: NEEDED PER PROVIDER ORDERS Last Admin: 07/21/18 17:18 Dose: 10 ml Sodium Chloride (Normal Saline Flush 0.9%) 10 ml IVP 0100,0900,1700 [facility] Last Admin: 07/25/18 11:52 Dose: 10 ml Aspirin Chewable [[facility] [place] Aspirin] 81 mg PO DAILY 07/20/18 Furosemide [Lasix] 20 mg PO DAILY 07/20/18 Loratadine 10 mg PO DAILY PRN 07/20/18 Metoprolol Tartrate 25 mg PO DAILY 07/20/18 Pravastatin [Pravachol] 40 mg PO QPM 07/20/18 Levothyroxine Sodium [Synthroid] 50 mcg PO QDAC 07/21/18 Objective - Vital Signs/Intake & Output Reviewed Vital Signs: Yes Vital Signs: Vital Signs x48h Temp Pulse Resp BP BP Pulse Ox 07/25/18 08:13 159/65 H 07/25/18 08:00 36.6 C 58 L 18 156/65 H 98 Intake & Output: Intake & Output 07/22/18 07/23/18 07/24/18 07/25/18 23:59 23:59 23:59 23:59 Intake Total 3673.330 1865 3148.880 2155 Balance 3673.330 1865 3148.880 2155 - Objective General Appearance: positive: No acute distress, Alert. negative: Lethargic Eyes Bilateral: positive: Normal inspection, PERRL, No lid inflammation, Conjunctivae nml ENT: positive: ENT inspection nml, Pharynx nml, No signs of dehydration. negative: Purulent nasal drainage, Pharyngeal erythema, Oral lesions Neck: positive: Nml inspection, Thyroid nml, No JVD, Trachea midline. negative: Thyromegaly, Lymphadenopathy (R), Lymphadenopathy (L), Stiff neck, Swelling/bruising, Tracheal deviation Respiratory: positive: Chest non-tender, No respiratory distress, Breath sounds nml. negative: Wheezes, Rales, Rhonchi Cardiovascular: positive: Regular rate & rhythm, No murmur, No gallop. negative: Irregularly irregular, Extrasystoles, Tachycardia, Bradycardia, JVD present, Systolic murmur, Diastolic murmur Peripheral Pulses: 2+ Radial (R), 2+ Radial (L), 2+ Dorsalis pedis (R), 2+ Dorsalis pedis (L) Abdomen: positive: Non-tender, No organomegaly, Nml bowel sounds, No distention. negative: Tenderness, Guarding, Rebound Back: positive: Nml inspection. negative: CVA tenderness (R), CVA tenderness (L) Skin: positive: Color nml, No rash, Warm, Dry. negative: Cyanosis, Diaphoresis, Pallor Extremities: positive: Non-tender, Full ROM, Nml appearance. negative: Calf tenderness, Joint swelling, Lonnie's sign/cords Neurologic/Psychiatric: positive: Sensation nml, Mood/affect nml. negative: Weakness, Sensory loss, Facial droop, Slurred/abnml speech, Depressed mood/affect - Lab Results Fish Bones: 07/25/18 05:36 07/25/18 05:36 Other Labs: Lab Results x24hrs 07/25/18 07/25/18 07/25/18 Range/Units 11:23 07:36 05:36 WBC (4.8-10.8) x10^3/uL RBC (4.20-5.40) 10^6/uL Hgb (12.0-16.0) g/dL Hct (37.0-47.0) % MCV (81.0-99.0) fL MCH (27.0-31.0) pg MCHC (32.0-36.0) g/dL RDW (12.0-15.0) % Plt Count (130-450) 10^3/uL MPV (7.9-10.8) fL Neut # (Auto) (1.5-6.6) 10^3/uL Lymph # (Auto) (1.5-3.5) 10^3/uL Sequoyah # (Auto) (0.0-1.0) 10^3/uL Eos # (Auto) (0.0-0.7) 10^3/uL Baso # (Auto) (0.0-0.1) 10^3/uL Absolute Nucleated RBC x10^3/uL Nucleated RBC % /100WBC Sodium 140 (135-145) mmol/L Potassium 4.0 (3.5-5.0) mmol/L Chloride 107 (101-111) mmol/L Carbon Dioxide 25 (21-32) mmol/L Anion Gap 8.0 (6-13) BUN 17 (6-20) mg/dL Creatinine 0.8 (0.4-1.0) mg/dL Estimated GFR (MDRD) 68 L (>89) Glucose 150 H (70-100) mg/dL POC Whole Bld Glucose 346 H 151 H (70 - 100) mg/dL Calcium 8.3 L (8.5-10.3) mg/dL Total Bilirubin 0.6 (0.2-1.0) mg/dL AST 26 (10-42) IU/L ALT 34 (10-60) IU/L Alkaline Phosphatase 58 (42-121) IU/L Total Protein 4.7 L (6.7-8.2) g/dL Albumin 2.8 L (3.2-5.5) g/dL Globulin 1.9 L (2.1-4.2) g/dL Albumin/Globulin Ratio 1.5 (1.0-2.2) 07/25/18 07/25/18 07/24/18 Range/Units 05:36 01:01 21:05 WBC 6.3 (4.8-10.8) x10^3/uL RBC 3.22 L (4.20-5.40) 10^6/uL Hgb 9.7 L (12.0-16.0) g/dL Hct 28.9 L (37.0-47.0) % MCV 89.7 (81.0-99.0) fL MCH 30.0 (27.0-31.0) pg MCHC 33.4 (32.0-36.0) g/dL RDW 13.8 (12.0-15.0) % Plt Count 153 (130-450) 10^3/uL MPV 8.8 (7.9-10.8) fL Neut # (Auto) 3.7 (1.5-6.6) 10^3/uL Lymph # (Auto) 1.8 (1.5-3.5) 10^3/uL Sequoyah # (Auto) 0.5 (0.0-1.0) 10^3/uL Eos # (Auto) 0.2 (0.0-0.7) 10^3/uL Baso # (Auto) 0.0 (0.0-0.1) 10^3/uL Absolute Nucleated RBC 0.00 x10^3/uL Nucleated RBC % 0.0 /100WBC Sodium (135-145) mmol/L Potassium (3.5-5.0) mmol/L Chloride (101-111) mmol/L Carbon Dioxide (21-32) mmol/L Anion Gap (6-13) BUN (6-20) mg/dL Creatinine (0.4-1.0) mg/dL Estimated GFR (MDRD) (>89) Glucose (70-100) mg/dL POC Whole Bld Glucose 183 H 118 H (70 - 100) mg/dL Calcium (8.5-10.3) mg/dL Total Bilirubin (0.2-1.0) mg/dL AST (10-42) IU/L ALT (10-60) IU/L Alkaline Phosphatase (42-121) IU/L Total Protein (6.7-8.2) g/dL Albumin (3.2-5.5) g/dL Globulin (2.1-4.2) g/dL Albumin/Globulin Ratio (1.0-2.2) 07/24/18 07/24/18 07/24/18 Range/Units 20:35 20:12 15:58 WBC (4.8-10.8) x10^3/uL RBC (4.20-5.40) 10^6/uL Hgb (12.0-16.0) g/dL Hct (37.0-47.0) % MCV (81.0-99.0) fL MCH (27.0-31.0) pg MCHC (32.0-36.0) g/dL RDW (12.0-15.0) % Plt Count (130-450) 10^3/uL MPV (7.9-10.8) fL Neut # (Auto) (1.5-6.6) 10^3/uL Lymph # (Auto) (1.5-3.5) 10^3/uL [place] # (Auto) (0.0-1.0) 10^3/uL Eos # (Auto) (0.0-0.7) 10^3/uL Baso # (Auto) (0.0-0.1) 10^3/uL Absolute Nucleated RBC x10^3/uL Nucleated RBC % /100WBC Sodium (135-145) mmol/L Potassium (3.5-5.0) mmol/L Chloride (101-111) mmol/L Carbon Dioxide (21-32) mmol/L Anion Gap (6-13) BUN (6-20) mg/dL Creatinine (0.4-1.0) mg/dL Estimated GFR (MDRD) (>89) Glucose (70-100) mg/dL POC Whole Bld Glucose 78 58 L* 217 H (70 - 100) mg/dL Calcium (8.5-10.3) mg/dL Total Bilirubin (0.2-1.0) mg/dL AST (10-42) IU/L ALT (10-60) IU/L Alkaline Phosphatase (42-121) IU/L Total Protein (6.7-8.2) g/dL Albumin (3.2-5.5) g/dL Globulin (2.1-4.2) g/dL Albumin/Globulin Ratio (1.0-2.2) ABX Reporting Has patient been on IV antibiotics over the past 48 hours?: No Assessment/Plan - Problem List (1) Altered mental status Impression: 07/25 mental status as her baseline, dementia, otherwise stable. 07/24 resolved, as pt's baseline 07/23,improved as her baseline continue neuro check 07/22 as pt's baseline, and dementia continue neuro check correct hyperglycemia, electrolyts plan and treatment pt is alert and oriented to herself. continue neuro check correct hyperglycemia, electrolyts there is no seizure (2) Hyperglycemia Conclusion/Plan: 07/25 pt's glucose is difficult to control. continue slide scale and add 5 unit extral 07/24 better controlled, continue slide scale 07/23 adjust Lantus Bid, and order lunch and dinner extral insulin 5 unit since her sugar is still high hyperglycemia is controlled, continue slide scale hypoglycemia protocol pt continue to have hyperglycemia, A1C is 9.4 hold metformin add Novolog 20+10 units, continue ACHS, slide scale, add Lantus on QPM continue hypoglycemia protocol order potassium and recheck potassium when ordered insulin (3) FATUMA (acute kidney injury) resolved, continue hydration gently continue lab monitor (4) Hypomagnesemia resolved (5) Hyponatremia resolved (6) Hypothyroidism TSH is normal, continue synthyroid (7) Hypertension 07/23 elevated BP, add Lisinprolol 5 mg continue BP monitor stable continue home meds vital monitor (8) Hyperlipidemia stable. continue home statin (9) elevated lactic acid 07/22 resolved lactic acid 3.0, continue 2.9 bolus of NS, continue use insulin to control glucose, continue hydration. recheck lactic acid pt's hemodynamic is stable now. check ECHO to monitor cardiac status (10) dementia pt present dementia and forgetful. continue support. pt's caregiver, her daughter, is in hospice. plan pt to be d/c to nurse facility (11) weakness 07/25 continue PT/OT, [facility] continue PT/OT, plan d/c to SNF. replacement is pending Qualifiers: Altered mental status type: disorientation Qualified Code(s): R41.0 - Disorientation, unspecified
[2018-07-25] MEDS: PRAVASTATIN 40 MG TABLET PO SCH (21:00)
[2018-07-26 06:39] LABS: ALBUMIN 2.9 g/dL (3.2-5.5); ALBUMIN/GLOBULIN RATIO 1.2 (1.0-2.2); BILIRUBIN,TOTAL 0.6 mg/dL (0.2-1.0); CALCIUM 8.7 mg/dL (8.5-10.3); CREATININE 0.9 mg/dL (0.4-1.0); TOTAL PROTEIN 5.3 g/dL (6.7-8.2)
[2018-07-26] MEDS: SODIUM CHLORIDE FLUSH 0.9% 10 ML SYRINGE IVP SCH ×2 (07:08→09:10)
[2018-07-26] MEDS: INSULIN ASPART 300 UNIT/3 ML PEN SUBQ SCH ×3 (08:00→21:13)
[2018-07-26] MEDS: LEVOTHYROXINE 25 MCG TABLET PO SCH (09:05)
[2018-07-26] MEDS: ENOXAPARIN 30 MG/0.3 ML SYRINGE SUBQ SCH (09:06)
[2018-07-26] MEDS: FERROUS SULFATE 325 MG TABLET PO SCH (09:06)
[2018-07-26] MEDS: ASPIRIN CHEW 81 MG TABLET PO SCH (09:06)
[2018-07-26] MEDS: INSULIN GLARGINE 300 UNIT/3 ML PEN SUBQ SCH (09:07)
[2018-07-26] MEDS: FAMOTIDINE 20 MG TABLET PO SCH (09:07)
[2018-07-26] MEDS: LISINOPRIL 5 MG TABLET PO SCH (09:08)
[2018-07-26] MEDS: METOPROLOL SUCCINATE 25 MG TABLET PO SCH (09:09)
[2018-07-26] MEDS: POLYETHYLENE GLYCOL 3350 17 GM PACKET PO SCH (09:09)
--- NOTE | 2018-07-26 10:38 | Discharge Plan ---
"Discharge Plan for SNF / [facility] - Discharge Plan And Transition Orders Disposition: 03 SNF DC/Xfer Condition: Good Allergies and Adverse Reactions: Allergies Allergy/AdvReac Type Severity Reaction Status Date / Time No Known Drug Allergies Allergy Verified 07/20/18 20:35 - SNF / ASSISTED Transition Orders Admit to (Facility): [facility] Under the care of (Name): Dr. Slaughter Discharge Diagnosis: Altered mental status (R41.82) improved, chronic. Hyperglycemia (R73.9) resolved. Diabetes mellitus, type 2 (E11.9) chronic, resume Metformin. FATUMA (acute kidney injury) (N17.9) resolved. Hypomagnesemia (E83.42) resolved. Hyponatremia (E87.1) resolved. Hypothyroidism (E03.9) chronic, stable. Last TSH 6.13 on 07/20/18. Hypertension (I10) chronic, stable. Hyperlipidemia (E78.5) chronic, stable. GERD (gastroesophageal reflux disease) (K21.9)chronic, stable. Pulmonary hypertension (I27.20) chronic, stable, diuretics were slightly changed, see med list. 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 Medicare Certification Statement: I certify that Post Hospital detention care is medically necessary on a continuing basis for any of the conditions for which she/he is receiving care during hospitalization. Notify PCP of admission and forward orders to primary provider for signature. Weight on admission and: Weekly Other Notification Orders: Call PCP immediately if patient develops dyspnea, chest pain/tightness or edema. House Bowel Program: Yes Additional Bowel Program Orders: If no BM after 2 days, nurse may give M.O.M. 30ml PO PRN and/or ducolax Supp 1 IA and/or ELIER 250mg P.O., and/or senna 1-2 tabs PO. On day 3 nurse may give repeat above order until residents constipation is resolved. Annual Influenza Vaccine (between Jun 04 and January 01): Yes Two-step PPD per [facility] [id number] or approved exception documents: Yes Treatments & Other Orders: PT recommendations: Continue w/PT progressing pt. dyanmic balance toward independent activity. Transfer to SNF after hospital d/c via POV or w/c van. Oxygen Orders: NONE, room air. Lab Tests or X-ray Orders: BMP within 5-7 days. Medication Orders: PLEASE REFER TO THE DISCHARGE MEDICATION LIST. Insulin Orders?: No - Medications New Prescriptions: amLODIPine [Norvasc] 5 mg PO DAILY #30 tablet metFORMIN [Glucophage] 500 mg PO BIDWM #60 tablet Metoprolol Succinate 6.25 mg PO BID #60 tab.er.24h raNITIdine [Zantac] 150 mg PO DAILY #30 tablet Spironolactone [Aldactone] 12.5 mg PO BIDWM #30 tablet - Diet Type: Geriatric Texture: Regular Liquids: Thin May have monthly special meal: Yes - Therapies | Activity Therapy: Evaluation | Treat if indicated: PT, OT Rehabilitation Potential: Maximize functional status, Return to independent living Activity: Activity as Tolerated Weight Bearing: Full Weight Assistance Devices: Walker Additional Instructions: The patient's PCP, Dr. Gordillo recommends followup with endocrinology as out- patient."
--- NOTE | 2018-07-26 11:02 | DISCHARGE SUMMARY ---
Discharge Summary Admit Date: 07/20/18 Discharge Date: 07/28/18 Discharging Provider: DANIEL Recinos Primary Care Provider: Dr. Slaughter/Mayte Irizarry Code Status: Attempt Resuscitation Condition at Discharge: Good Discharge Disposition: 03 SNF DC/Xfer Discharge Facility Name: [facility] Age of [age] - DIAGNOSES Admission Diagnoses: Altered mental status, unspecified (R41.82) Hyperglycemia, unspecified (R73.9) Type 2 diabetes mellitus without complications (E11.9) Acute kidney failure, unspecified (N17.9) Hypomagnesemia (E83.42) Hypo-osmolality and hyponatremia (E87.1) Hypothyroidism, unspecified (E03.9) Essential (primary) hypertension (I10) Hyperlipidemia, unspecified (E78.5) Gastro-esophageal reflux disease without esophagitis (K21.9) Discharge Diagnoses with Status of Each Condition: Altered mental status (R41.82) improved, chronic. Hyperglycemia (R73.9) resolved. Diabetes mellitus, type 2 (E11.9) chronic, resume Metformin. FATUMA (acute kidney injury) (N17.9) resolved. Hypomagnesemia (E83.42) resolved. Hyponatremia (E87.1) resolved. Hypothyroidism (E03.9) chronic, stable. Last TSH 6.13 on 07/20/18. Hypertension (I10) chronic, stable. Hyperlipidemia (E78.5) chronic, stable. GERD (gastroesophageal reflux disease) (K21.9)chronic, stable. Pulmonary hypertension (I27.20) chronic, stable, diuretics were slightly changed, see med list. 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 - HPI History of Present Illness: HPI per Dr. Costello: Patient is a very pleasant 88-year-old female with a past medical history significant for hearing loss, mild dementia, diabetes, hypertension, hyperlipidemia and hypothyroidism who presented to the emergency department after what the patient's daughter thought was a seizure. The patient does not recall what happened earlier this evening. The patient's daughter describes that the patient was witnessed by her son shaking at the kitchen sink. The daughter states that the patient had this seizure-like activity for about 2-3 minutes and her whole body was shaking. The patient's daughter became concerned and called 911. According to the patient she was not having any symptoms prior to this and has no recollection of this happening. She denies any headaches, focal neurologic symptoms, dizziness, lightheadedness, chest pain, cough, shortness of breath, abdominal pain, nausea, vomiting, diarrhea, urinary urgency, urinary frequency, dysuria, back pain, neck stiffness, fevers or chills. The patient's daughter also stated that the patient was in her normal state of health prior to this episode. Once the paramedics arrived the patient was responsive and opening her eyes but not following commands or speaking. When the patient arrived in the emergency department she was able to follow commands and was able to tell them her name. On presentation to the emergency department the patient was afebrile and hypertensive with blood pressure of 186/79 but remainder of vital signs were within normal limits. The patient underwent fingerstick for her glucose which was greater than 600. The patient will underwent routine lab work which revealed a mild leukopenia, mild hyponatremia, acute kidney injury with a creatinine of 1.4 and BUN of 34 and a blood glucose of 685. The patient did also have some mild hypomagnesemia. The patient did not have acidosis and had no anion gap. The patient did have a mildly elevated lipase and TSH. The patient's urine analysis was negative. Patient's serum ketones were negative. The patient underwent a CT of her head which showed generalized age-related cortical atrophic changes without evidence of acute intracranial abnormality. The patient's EKG showed sinus rhythm without ST elevations or acute ischemic changes. The patient's troponin was negative. The patient's mental status appeared to be slowly improving in the emergency department. Given that the patient had severe hyperglycemia and appeared to be dehydrated she was given IV fluid and placed in observation for further monitoring of her mental status. - HOSPITAL COURSE Hospital Course: (1) Altered mental status According to the patient's family the patient was in her normal state of health when she had seizure-like activity this evening where she was shaking her whole body. This lasted for about 2-3 minutes. After the episode patient was opening her eyes but not responsive then when she arrived in the emergency department the patient was more responsive and able to follow commands but still not back to her normal mentation. The patient's workup was significant for severe hyperglycemia as the patient's blood glucose was 685. The patient was also dehydrated with an elevated creatinine, low sodium, low chloride and low magnesium. The patient's urine analysis was negative. The patient's CT head showed generalized age-related cortical atrophic changes without evidence of acute intracranial abnormality. The patient had no further events in the emergency department. Slowly the patient's mentation was improving throughout her emergency room stay. Given the patient's hyperglycemia and likely metabolic encephalopathy the patient was placed in observation for further monitoring and treatment of her blood glucose and electrolyte disturbances. It is possible that the patient may have had a new onset seizure as she has never had any history of seizures. The CT of her head was negative and had no focal ne urologic deficits. The patient's electrolytes were replaced for her acute abnormalities; including hyperglycemia, hypomagnesemia, hyponatremia and dehydration. This condition improved and was considered stable upon discharge. (2) Hyperglycemia The patient presented with what appeared to be seizure activity and then a post ictal state. The patient continued to have confusion, appeared to be dry on examination, and blood glucose was elevated at 685. The patient does have a history of diabetes but is on metformin alone. The patient appeared to have alt ered mental status secondary to her electrolyte abnormalities including her hyperglycemia and dehydration. Her metformin was placed on hold as per hospital protocol, and was put on SSI, a carb controlled diet, and blood glucose checks with a low dose Lantus. Her hemoglobin A1c was 9.4%, showing mildly poor control. On discharge she was resumed on Metformin, since non-compliance is the most likely cause of this condition. (3) FATUMA (acute kidney injury) The patient appeared to have dehydration on examination she had dry mucous membranes with electrolyte disturbances. The patient's creatinine was elevated at 1.4 from a baseline of around 1.0. The patient also had a elevated BUN of 34. The patient appears to have prerenal azotemia with acute kidney injury. She was initially given IV fluids, nephrotoxic agents were placed on hold and/or avoided, and her labs were monitored daily. (4) Hypomagnesemia The patient was hypomagnesemic on presentation with a magnesium of 1.6. Patient was given magnesium and prior to discharge she had a magnesium of 1.5, so a one time dose of oral Mag of 800mg was given. Labs should be re-checked in one week. (5) Hyponatremia The patient was hyponatremic on presentation with a sodium of 133, that soon resolved. This appeared to be a pseudohyponatremia as the patient's blood glucose was 685 and corrected sodium is greater than 135. The patient however did appear to be quite dry on examination and was given IV fluids. (6) Hypothyroidism The patient has a history of hypothyroidism and is on levothyroxine. The patient's TSH was mildly elevated at 6.13. The patient may need her levothyroxine dose adjusted however since the TSH is only minimally elevated we will not change her dose here. The patient will be continued on her home dose of levothyroxine. It is very unlikely that her mildly elevated TSH was in any way contributing to her presentation. Due to her suspected medical noncompliance, no changes were made to her usual Synthroid dose. (7) Hypertension The patient has a history of hypertension and blood pressure was severely elevated on presentation with a blood pressure of 186/79. Blood pressure may have been elevated secondary to seizure activity or possible TIA. The patient CT head was negative. The patient's elevated blood pressure could also have caused encephalopathy and seizure however on presentation the patient did not appear to have hypertensive urgency or emergency. The patient was continued on her home antihypertensive medications. (8) Hyperlipidemia Patient has a history of hyperlipidemia and takes a statin at home. The patient was continued on her usual statin while she is hospitalized. (9) Pulmonary hypertension Final echo results show an elevated RVSP at rest of 53 mmHg. On exam, she has an enlarged abdomen that is rounded and soft. She is not dependent on oxygen. She has no lung issues on imaging and is not dependent on home oxygen. She may have sleep apnea, but completing a sleep study may be challenging at this point in her life. She is on spironolactone at home, and I have split this dose up to 12.5 BID to prevent dehydration or dizziness. 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 The patient should avoid getting intravascular depleted, by staying away from high dose diuretics and ensure she has a low-normal heart rate. Disposition: The patient was in stable condition and it has recommended for further PT at a SNF, so she was transferred via wheelchair van. - ALLERGIES Allergies/Adverse Reactions: Allergies Allergy/AdvReac Type Severity Reaction Status Date / Time No Known Drug Allergies Allergy Verified 07/20/18 20:35 - MEDICATIONS Home Medications: Ambulatory Orders Medication Instructions Recorded Confirmed Aspirin Chewable [[facility] Stanley 81 mg PO DAILY 07/20/18 07/21/18 Aspirin] Loratadine 10 mg PO DAILY PRN 07/20/18 07/21/18 Pravastatin [Pravachol] 40 mg PO QPM 07/20/18 07/21/18 Levothyroxine Sodium [Synthroid] 50 mcg PO QDAC 07/21/18 07/21/18 amLODIPine [Norvasc] 5 mg PO DAILY #30 tablet 07/26/18 metFORMIN [Glucophage] 500 mg PO BIDWM #60 tablet 07/26/18 raNITIdine [Zantac] 150 mg PO DAILY #30 tablet 07/26/18 Metoprolol Succinate 6.25 mg PO BID #60 tab.er.24h 07/28/18 Spironolactone [Aldactone] 12.5 mg PO BIDWM #30 tablet 07/28/18 - PHYSICAL EXAM AT DISCHARGE General Appearance: positive: No acute distress, Alert Eyes Bilateral: positive: PERRL ENT: positive: Pharynx nml, No signs of dehydration Neck: positive: Thyroid nml, No JVD, Trachea midline Respiratory: positive: Chest non-tender, No respiratory distress, Breath sounds nml Cardiovascular: positive: Regular rate & rhythm, Bradycardia, Systolic murmur Peripheral Pulses: positive: 2+ Abdomen: positive: Non-tender, Nml bowel sounds, Other (rounded, soft) Back: positive: Nml inspection Skin: positive: No rash, Warm, Dry Extremities: positive: Non-tender, Full ROM, Nml appearance, Pedal edema (mild, dependent.) Neurologic/Psychiatric: positive: CN's nml (2-12), Motor nml, Sensation nml, Disoriented to place, Disoriented to time, Weakness, Sensory loss, Depressed mood/affect Reflexes: Bicep (R): 3+, Bicep (L): 3+ - LABS Result Diagrams: 07/28/18 05:33 07/28/18 05:33 - DIAGNOSTIC IMAGING Diagnostic Imaging Results: Final report reviewed Diagnostic Imaging Results Comments: EXAM: CT HEAD EXAM DATE: 07/20/2018 09:33 PM. IMPRESSION: Generalized age-related cortical atrophic changes without evidence of acute intracranial abnormality. EXAM: ABDOMEN ULTRASOUND EXAM DATE: 07/21/2018 12:58 AM. IMPRESSION: 1. Coarse heterogeneous liver. 2. No evidence for cholelithiasis. EXAM: CHEST RADIOGRAPHY EXAM DATE: 07/21/2018 08:30 AM. IMPRESSION: Mild bibasilar atelectasis. ECHOCARDIOGRAM 07/21/18: Final read by Tyron Conti MD 1. Normal LV size and function, EF 65%. There is mild diastolic dysfunction and a sigmoid septum is noted. The LA is moderately dilated. 2. Normal RV size and function. There is moderate tricuspid regurg, and moderate pulmonary hypertension, PASP 53 mm Hg. 3. Mildly sclerotic aortic valve and mild mitral regurg. - FOLLOW UP Follow Up: Admit to (Facility): Care Age of Ashish Under the care of (Name): Dr. Slaughter - TIME SPENT Time Spent in Discharge (Minutes): 50
--- NOTE | 2018-07-26 16:49 | PROVIDER PROGRESS NOTE ---
Subjective - Prog Note Date Prog Note Date: 07/26/18 Prog Note Time: 16:47 - Subjective Pt reports feeling: Improved Subjective: Pat has no complaints and is looking forward to her upcoming SNF placement. She denies shortness of breath, nausea, vomiting, rashes, bleeding, or chest pain. Current Medications - Current Medications Current Medications: Active Medications Acetaminophen (Tylenol) 650 mg PO Q4HR PRN PRN Reason: Pain 1 to 4 Amlodipine Besylate (Norvasc) 5 mg PO DAILY [facility] Aspirin ([facility] Stanley Aspirin) 81 mg PO DAILY [facility] Last Admin: 07/26/18 09:06 Dose: 81 mg Famotidine (Pepcid) 20 mg PO DAILY [facility] Last Admin: 07/26/18 09:07 Dose: 20 mg Ferrous Sulfate (Feosol) 325 mg PO DAILYWM [facility] Last Admin: 07/26/18 09:06 Dose: 325 mg Insulin Aspart (Novolog) 5 unit SUBQ TIDWM [facility] Insulin Glargine (Lantus Solostar) 8 unit SUBQ DAILY [facility] Levothyroxine Sodium (Synthroid) 50 mcg PO QDAC [facility] Last Admin: 07/26/18 09:05 Dose: 50 mcg Loratadine (Claritin) 10 mg PO DAILY PRN PRN Reason: Cold Symptons Metoprolol Succinate (Toprol Xl) 25 mg PO DAILY [facility] Last Admin: 07/26/18 09:09 Dose: 25 mg Polyethylene Glycol (Miralax) 17 gm PO DAILY [facility] Last Admin: 07/26/18 09:09 Dose: Not Given Pravastatin Sodium (Pravachol) 40 mg PO QPM [facility] Last Admin: 07/25/18 21:00 Dose: 40 mg Spironolactone (Aldactone) 12.5 mg PO BIDWM [facility] Aspirin Chewable [[facility] Stanley Aspirin] 81 mg PO DAILY 07/20/18 Loratadine 10 mg PO DAILY PRN 07/20/18 Pravastatin [Pravachol] 40 mg PO QPM 07/20/18 Levothyroxine Sodium [Synthroid] 50 mcg PO QDAC 07/21/18 Objective - Vital Signs/Intake & Output Reviewed Vital Signs: Yes Vital Signs: Vital Signs x48h Temp Pulse Resp BP Pulse Ox 07/26/18 15:58 36.8 C 61 18 155/46 H 96 07/26/18 10:52 61 134/55 H Intake & Output: Intake & Output 07/23/18 07/24/18 07/25/18 07/26/18 23:59 23:59 23:59 23:59 Intake Total 5 3148.880 2495 520 Balance 1864 3148.880 2495 520 - Objective General Appearance: positive: No acute distress, Alert Eyes Bilateral: positive: PERRL Eyes: OU Conjunctivae pale ENT: positive: Pharynx nml, No signs of dehydration Neck: positive: Thyroid nml, No JVD, Trachea midline Respiratory: positive: Chest non-tender, No respiratory distress, Other ( diminshed, bilaterally.) Cardiovascular: positive: Regular rate & rhythm, No gallop, Systolic murmur Peripheral Pulses: 1+ Radial (R), 1+ Radial (L) Abdomen: positive: Non-tender, Nml bowel sounds, Other (rounded, soft) Back: positive: Nml inspection Skin: positive: No rash, Warm, Dry Extremities: positive: Non-tender, Nml appearance, No pedal edema Neurologic/Psychiatric: positive: CN's nml (2-12), Motor nml, Sensation nml, Disoriented to time, Weakness, Sensory loss, Slurred/abnml speech, Depressed mood/affect Reflexes: Bicep (R): 3+, Bicep (L): 3+ - Lab Results Fish Bones: 07/25/18 05:36 07/26/18 05:37 Other Labs: Lab Results x24hrs 07/26/18 07/26/18 07/26/18 Range/Units 11:15 07:30 05:37 Sodium 139 (135-145) mmol/L Potassium 4.1 (3.5-5.0) mmol/L Chloride 105 (101-111) mmol/L Carbon Dioxide 29 (21-32) mmol/L Anion Gap 5.0 L (6-13) BUN 18 (6-20) mg/dL Creatinine 0.9 (0.4-1.0) mg/dL Estimated GFR (MDRD) 59 L (>89) Glucose 134 H (70-100) mg/dL POC Whole Bld Glucose 311 H 140 H (70 - 100) mg/dL Calcium 8.7 (8.5-10.3) mg/dL Total Bilirubin 0.6 (0.2-1.0) mg/dL AST 20 (10-42) IU/L ALT 30 (10-60) IU/L Alkaline Phosphatase 58 (42-121) IU/L Total Protein 5.3 L (6.7-8.2) g/dL Albumin 2.9 L (3.2-5.5) g/dL Globulin 2.4 (2.1-4.2) g/dL Albumin/Globulin Ratio 1.2 (1.0-2.2) ABX Reporting Has patient been on IV antibiotics over the past 48 hours?: No Assessment/Plan - Problem List (1) Altered mental status Impression: The patient likely has baseline early dementia based on her other illnesses, frequent falls, and as per my exam today. A head CT from 07/20/18 showed age related cortical atrophic changes without evidence of acute intracranial abnorma lities. The patient admits to being very forgetful. Plan: Continue frequent nursing cares, monitor for worsening. Qualifiers: Altered mental status type: disorientation Qualified Code(s): R41.0 - Disorientation, unspecified (2) Diabetes mellitus, type 2 Impression: The patient was found to have a very elevated blood sugar at over 600 on admission. She was given Lantus, SSI and scheduled aspart. At home she is only on Metformin, but compliance was questioned upon admission. She was found to have a hemoglobin A1C of 9.4%, showing more likely non-compliance. This morning her early AM sugar was too low at 134 on BMP results, so her Lantus was reduced from 10 units to just 8 units daily. She was planning to go to [facility] today, so her daytime insulin coverage was discontinued, but she continued in the 300 range prior to meals. I have added scheduled Aspart at 5 units, and a SSI dose with blood sugar checks while here. Plan: Continue daily lantus, SSI, scheduled Aspart, blood sugar checks and plan to resume metformin upon discharge. (3) Pulmonary hypertension Impression: Final echo results show an elevated RVSP at rest of 53 mmHg. On exam, she has an enlarged abdomen that is rounded and soft. She is not dependent on oxygen. She has no lung issues on imaging and is not dependent on home oxygen. She may have sleep apnea, but completing a sleep study may be challenging at this point in her life. She is on spironolactone at home, and I have split this dose up to 12.5 BID to prevent dehydration or dizziness. Plan: continue med, and monitor respiratory status. (4) IHSS (idiopathic hypertrophic subaortic stenosis) Impression: This condition is likely chronic for her, and it is confirmed on her final echo report as there is mild diastolic dysfunction and a sigmoid septum noted with hypertrophy. Plan: Avoid patient getting intravascular depleted, by avoiding high dose diuretics and ensure she has a low-normal heart rate. (5) Hypertension Impression: The patient is prescribed amlodipine at home since her heart rates are low, which would be the preferred treatment given her IHSS found on echo. Plan: Monitor vital signs and continue meds. Qualifiers: Hypertension type: essential hypertension Qualified Code(s): I10 - Essential (primary) hypertension (6) Weakness Impression: The patient continues to display evidence of profound weakness by refusing to ambulate, and states that she is "hopeless" much of the time lately. She has be en evaluated by PT, who recommends further rehab as she is not thought to be at her baseline mobility. Plan: Continue daily PT, plan for SNF discharge. *Awaiting placement, transportation has been difficult to arrange.
[2018-07-26] MEDS: SPIRONOLACTONE 25 MG TABLET PO SCH (18:19)
[2018-07-26] MEDS: PRAVASTATIN 40 MG TABLET PO SCH (21:13)
[2018-07-27] MEDS: LEVOTHYROXINE 25 MCG TABLET PO SCH (08:49)
[2018-07-27] MEDS: SPIRONOLACTONE 25 MG TABLET PO SCH ×2 (08:49→17:08)
[2018-07-27] MEDS: FAMOTIDINE 20 MG TABLET PO SCH (08:49)
[2018-07-27] MEDS: ASPIRIN CHEW 81 MG TABLET PO SCH (08:49)
[2018-07-27] MEDS: FERROUS SULFATE 325 MG TABLET PO SCH (08:49)
[2018-07-27] MEDS: METOPROLOL SUCCINATE 25 MG TABLET PO SCH (08:49)
[2018-07-27] MEDS: POLYETHYLENE GLYCOL 3350 17 GM PACKET PO SCH (08:50)
[2018-07-27] MEDS: amLODIPine 5 MG TABLET PO SCH (08:50)
[2018-07-27] MEDS: INSULIN GLARGINE 300 UNIT/3 ML PEN SUBQ SCH (08:50)
[2018-07-27] MEDS: INSULIN ASPART 300 UNIT/3 ML PEN SUBQ SCH ×7 (08:51→22:04)
--- NOTE | 2018-07-27 18:50 | PROVIDER PROGRESS NOTE ---
Subjective - Prog Note Date Prog Note Date: 07/27/18 Prog Note Time: 12:00 - Subjective Pt reports feeling: Improved Subjective: Pat has no complaints, but states that she is not sleeping well at times. She denies chest pain, dizziness, nausea, vomiting, rashes, diarrhea, or a new cough. Current Medications - Current Medications Current Medications: Active Medications Acetaminophen (Tylenol) 650 mg PO Q4HR PRN PRN Reason: Pain 1 to 4 Amlodipine Besylate (Norvasc) 5 mg PO DAILY [facility] Last Admin: 07/27/18 08:50 Dose: 5 mg Aspirin ([facility] Stanley Aspirin) 81 mg PO DAILY [facility] Last Admin: 07/27/18 08:49 Dose: 81 mg Famotidine (Pepcid) 20 mg PO DAILY [facility] Last Admin: 07/27/18 08:49 Dose: 20 mg Ferrous Sulfate (Feosol) 325 mg PO DAILYWM [facility] Last Admin: 07/27/18 08:49 Dose: 325 mg Insulin Aspart (Novolog) 5 unit SUBQ TIDWM [facility] Last Admin: 07/27/18 17:14 Dose: 5 unit Insulin Aspart (Novolog) 1 - 5 unit SUBQ 0800,1200,1700,2100 [facility]; Protocol Last Admin: 07/27/18 17:14 Dose: 3 unit Insulin Glargine (Lantus Solostar) 8 unit SUBQ DAILY [facility] Last Admin: 07/27/18 08:50 Dose: 8 unit Levothyroxine Sodium (Synthroid) 50 mcg PO QDAC [facility] Last Admin: 07/27/18 08:49 Dose: 50 mcg Loratadine (Claritin) 10 mg PO DAILY PRN PRN Reason: Cold Symptons Metoprolol Succinate (Toprol Xl) 12.5 mg PO BIDWM [facility] Polyethylene Glycol (Miralax) 17 gm PO DAILY [facility] Last Admin: 07/27/18 08:50 Dose: 17 gm Pravastatin Sodium (Pravachol) 40 mg PO QPM [facility] Last Admin: 07/26/18 21:13 Dose: 40 mg Spironolactone (Aldactone) 12.5 mg PO BIDWM [facility] Last Admin: 07/27/18 17:08 Dose: 12.5 mg Aspirin Chewable [[facility] Stanley Aspirin] 81 mg PO DAILY 07/20/18 Loratadine 10 mg PO DAILY PRN 07/20/18 Pravastatin [Pravachol] 40 mg PO QPM 07/20/18 Levothyroxine Sodium [Synthroid] 50 mcg PO QDAC 07/21/18 Objective - Vital Signs/Intake & Output Reviewed Vital Signs: Yes Vital Signs: Vital Signs x48h Temp Pulse Resp BP Pulse Ox 07/27/18 16:05 36.6 C 56 L 18 139/59 H 98 Intake & Output: Intake & Output 07/24/18 07/25/18 07/26/18 07/27/18 23:59 23:59 23:59 23:59 Intake Total 3148.880 2495 970 1276 Balance 3148.880 2495 970 1276 - Objective General Appearance: positive: No acute distress, Alert Eyes Bilateral: positive: Normal inspection, PERRL Eyes: OU Conjunctivae pale ENT: positive: Pharynx nml, No signs of dehydration Neck: positive: Thyroid nml, No JVD, Trachea midline Respiratory: positive: Chest non-tender, No respiratory distress, Other (diminished) Cardiovascular: positive: Regular rate & rhythm, Systolic murmur, Decreased pulse(s) Peripheral Pulses: 1+ Radial (R), 1+ Radial (L) Abdomen: positive: Non-tender, Nml bowel sounds, Other (rounded, soft) Back: positive: Nml inspection Skin: positive: No rash, Warm, Dry, Pallor Extremities: positive: Non-tender, Full ROM, Pedal edema Neurologic/Psychiatric: positive: CN's nml (2-12), Motor nml, Sensation nml, Disoriented to place, Disoriented to time, Weakness, Sensory loss, Slurred/abnml speech, Depressed mood/affect Reflexes: Bicep (R): 3+, Bicep (L): 3+ - Lab Results Fish Bones: 07/28/18 05:33 07/28/18 05:33 Other Labs: Lab Results x24hrs 07/27/18 07/27/18 07/27/18 Range/Units 16:40 11:19 07:27 POC Whole Bld Glucose 228 H 266 H 162 H (70 - 100) mg/dL 07/26/18 Range/Units 20:54 POC Whole Bld Glucose 208 H (70 - 100) mg/dL ABX Reporting Has patient been on IV antibiotics over the past 48 hours?: No Assessment/Plan - Problem List (1) Altered mental status Impression: The patient likely has baseline early dementia based on her other illnesses, frequent falls, and as per my exam today. A head CT from 07/20/18 showed age related cortical atrophic changes without evidence of acute intracranial abnormalities. The patient admits to being very forgetful. Plan: Continue frequent nursing cares, monitor for worsening. Qualifiers: Altered mental status type: disorientation Qualified Code(s): R41.0 - Disorientation, unspecified (2) Diabetes mellitus, type 2 Impression: The patient was found to have a very elevated blood sugar at over 600 on admission. She was given Lantus, SSI and scheduled aspart. At home she is only on Metformin, but compliance was questioned upon admission. She was found to have a hemoglobin A1C of 9.4%, showing more likely non-compliance. This morning her early AM sugar was too low at 134 on BMP results, so her Lantus was reduced from 10 units to just 8 units daily. She was planning to go to [facility] today, so her daytime insulin coverage was discontinued, but she continued in the 300 range prior to meals. She continues on scheduled Aspart at 5 units, and a SSI dose with blood sugar checks while here. Plan: Continue daily lantus, SSI, scheduled Aspart, blood sugar checks and plan to resume metformin upon discharge. (3) Pulmonary hypertension Impression: Final echo results show an elevated RVSP at rest of 53 mmHg. On exam, she has an enlarged abdomen that is rounded and soft. She is not dependent on oxygen. She has no lung issues on imaging and is not dependent on home oxygen. She may have sleep apnea, but completing a sleep study may be challenging at this point in her life. She is on spironolactone at home, and I have split this dose up to 12.5 BID to prevent dehydration or dizziness. Plan: continue med, and monitor respiratory status. (4) IHSS (idiopathic hypertrophic subaortic stenosis) Impression: This condition is likely chronic for her, and it is confirmed on her final echo report as there is mild diastolic dysfunction and a sigmoid septum noted with hypertrophy. Plan: Avoid patient getting intravascular depleted, by avoiding high dose diuretics and ensure she has a low-normal heart rate. (5) Hypertension Impression: The patient is prescribed amlodipine at home since her heart rates are low, which would be the preferred treatment given her IHSS found on echo. Blood pressure today was 153/54, with heart rates in the 60's. Plan: Monitor vital signs and continue meds. Qualifiers: Hypertension type: essential hypertension Qualified Code(s): I10 - Essential (primary) hypertension (6) Weakness Impression: The patient continues to display evidence of profound weakness by refusing to ambulate, and states that she is "hopeless" much of the time lately. She has been evaluated by PT, who recommends further rehab as she is not thought to be at her baseline mobility. Plan: Continue daily PT, plan for SNF discharge. *Awaiting placement, transportation has been difficult to arrange.
[2018-07-27] MEDS: PRAVASTATIN 40 MG TABLET PO SCH (22:05)
[2018-07-28 05:51] LABS: BASOPHILS # (AUTO) 0.1 10^3/uL (0.0-0.1); BASOPHILS % (AUTO) 0.8 %; EOSINOPHILS # (AUTO) 0.3 10^3/uL (0.0-0.7); EOSINOPHILS % (AUTO) 3.8 %; HGB - HEMOGLOBIN 11.4 g/dL (12.0-16.0); LYMPHOCYTES % (AUTO) 26.9 %; MEAN CORPUSCULAR HGB CONC 33.3 g/dL (32.0-36.0); MEAN CORPUSCULAR VOLUME 90.1 fL (81.0-99.0); MEAN PLATELET VOLUME 8.5 fL (7.9-10.8); MONOCYTES # (AUTO) 0.7 10^3/uL (0.0-1.0); MONOCYTES % (AUTO) 9.4 %; NEUTROPHILS # (AUTO) 4.4 10^3/uL (1.5-6.6); NEUTROPHILS % (AUTO) 59.1 %; PLT - PLATELET COUNT 197 10^3/uL (130-450); RED CELL DISTRIBUTION WIDTH 13.9 % (12.0-15.0); WHITE BLOOD COUNT 7.5 x10^3/uL (4.8-10.8)
[2018-07-28 06:00] LABS: ALBUMIN 3.3 g/dL (3.2-5.5); ALBUMIN/GLOBULIN RATIO 1.4 (1.0-2.2); BILIRUBIN,TOTAL 0.5 mg/dL (0.2-1.0); CALCIUM 9.1 mg/dL (8.5-10.3); MAGNESIUM 1.5 mg/dL (1.7-2.8); PHOSPHORUS 3.9 mg/dL (2.5-4.6); TOTAL PROTEIN 5.7 g/dL (6.7-8.2)
[2018-07-28] MEDS: LEVOTHYROXINE 25 MCG TABLET PO SCH (06:40)
[2018-07-28 07:30] VITALS: BP 165/54
[2018-07-28] MEDS ORDERED: METOPROLOL SUCCINATE 25 MG TABLET PO SCH ×2 (08:00→17:00)
[2018-07-28] MEDS: FERROUS SULFATE 325 MG TABLET PO SCH (08:15)
[2018-07-28] MEDS: SPIRONOLACTONE 25 MG TABLET PO SCH (08:19)
[2018-07-28] MEDS: amLODIPine 5 MG TABLET PO SCH (08:20)
[2018-07-28] MEDS: FAMOTIDINE 20 MG TABLET PO SCH (08:20)
[2018-07-28] MEDS: ASPIRIN CHEW 81 MG TABLET PO SCH (08:20)
[2018-07-28] MEDS: POLYETHYLENE GLYCOL 3350 17 GM PACKET PO SCH (08:21)
[2018-07-28] MEDS: INSULIN ASPART 300 UNIT/3 ML PEN SUBQ SCH ×4 (08:25→11:52)
[2018-07-28] MEDS: INSULIN GLARGINE 300 UNIT/3 ML PEN SUBQ SCH (08:26)
[2018-07-28] MEDS ORDERED: INSULIN ASPART 300 UNIT/3 ML PEN SUBQ SCH (11:26)
[2018-07-28] MEDS ORDERED: INSULIN ASPART 300 UNIT/3 ML PEN SUBQ ONE (11:26)
[2018-07-28] MEDS ORDERED: MAGNESIUM OXIDE 400 MG TABLET PO SCH (11:29)
== END 2018-07-28 13:43 | DRG 637 ==
LOC: EDUNIT# → ED 19:36 → OBS 23:26 → OBSVTOIN 07-21 12:24 → MS2 07-21 14:03
PROVIDERS: ADMIT Internal Medicine; ATTEND Nurse Practitioner
DX: R41.0 Disorientation, unspecified (principal); E11.65 Type 2 diabetes mellitus with hyperglycemia; G93.41 Metabolic encephalopathy; N17.9 Acute kidney failure, unspecified; E87.1 Hypo-osmolality and hyponatremia; I42.1 Obstructive hypertrophic cardiomyopathy; E83.42 Hypomagnesemia; I11.9 Hypertensive heart disease without heart failure; I10 Essential (primary) hypertension; E78.5 Hyperlipidemia, unspecified; K21.9 Gastro-esophageal reflux disease without esophagitis; I27.20 Pulmonary hypertension, unspecified; R56.9 Unspecified convulsions; E86.0 Dehydration; Z79.82 Long term (current) use of aspirin; F03.90 Unspecified dementia, unspecified severity, without behavioral disturbance, psychotic disturbance, mood disturbance, and anxiety; E03.9 Hypothyroidism, unspecified; R53.1 Weakness; H91.90 Unspecified hearing loss, unspecified ear; Z79.84 Long term (current) use of oral hypoglycemic drugs; Z79.899 Other long term (current) drug therapy; Z91.81 History of falling; Z91.14 Patient's other noncompliance with medication regimen
CPT/HCPCS: 36415; 70450; 71045; 76700; 80053; 81001; 81003; 82009; 82550; 82607; 82728; 82803; 83036; 83540; 83605; 83615; 83690; 83735; 84100; 84132; 84146; 84443; 84466; 84484; 85025; 85044; 85610; 87086; 93005; 93306; 96361; 96365; 96366; 96372; 96374; 96375; 99284; 99285

== ENCOUNTER → 2018-08-01 | Outpatient (CLI) | payer MEDICARE, OTHER ==
[2018-08-01 16:43] LABS: CALCIUM 9.1 mg/dL (8.5-10.3); CREATININE 1.3 mg/dL (0.4-1.0)
== END ==
LOC: LAB.R 15:15
DX: I27.20 Pulmonary hypertension, unspecified (principal)
CPT/HCPCS: 80048

== ENCOUNTER 2018-08-08 08:00 | Outpatient (CLI) | payer MEDICARE, OTHER ==
[2018-08-08 23:35] LABS: CALCIUM 8.9 mg/dL (8.5-10.3); CREATININE 1.1 mg/dL (0.4-1.0)
== END 2018-08-08 23:59 | disposition home or self-care (01) ==
LOC: LAB.R 08:00
PROVIDERS: ATTEND Family Medicine
DX: N18.9 Chronic kidney disease, unspecified (principal)
CPT/HCPCS: 80048

== ENCOUNTER 2018-09-07 08:00 | Outpatient (CLI) | payer MEDICARE, OTHER ==
[2018-09-07 18:54] LABS: BASOPHILS # (AUTO) 0.1 10^3/uL (0.0-0.1); BASOPHILS % (AUTO) 0.8 %; EOSINOPHILS # (AUTO) 0.3 10^3/uL (0.0-0.7); EOSINOPHILS % (AUTO) 4.2 %; HGB - HEMOGLOBIN 12.4 g/dL (12.0-16.0); LYMPHOCYTES # (AUTO) 1.9 10^3/uL (1.5-3.5); LYMPHOCYTES % (AUTO) 25.5 %; MEAN CORPUSCULAR HEMOGLOBIN 29.8 pg (27.0-31.0); MEAN CORPUSCULAR HGB CONC 32.8 g/dL (32.0-36.0); MEAN CORPUSCULAR VOLUME 90.8 fL (81.0-99.0); MEAN PLATELET VOLUME 9.1 fL (7.9-10.8); MONOCYTES # (AUTO) 0.6 10^3/uL (0.0-1.0); MONOCYTES % (AUTO) 8.3 %; NEUTROPHILS # (AUTO) 4.5 10^3/uL (1.5-6.6); NEUTROPHILS % (AUTO) 61.2 %; PLT - PLATELET COUNT 203 10^3/uL (130-450); RED BLOOD COUNT 4.16 10^6/uL (4.20-5.40); RED CELL DISTRIBUTION WIDTH 14.1 % (12.0-15.0); WHITE BLOOD COUNT 7.4 x10^3/uL (4.8-10.8)
[2018-09-07 19:10] LABS: HB2 TOTAL 13.1 g/dL; HEMOGLOBIN A1C 0.94 g/dL; HEMOGLOBIN A1C % 8.7 % (4.6-6.2)
[2018-09-07 19:16] LABS: ALBUMIN 4.3 g/dL (3.2-5.5); ALBUMIN/GLOBULIN RATIO 1.7 (1.0-2.2); ALKALINE PHOSPHATASE 64 IU/L (42-121); ALT ALANINE AMINOTRANSFERASE 14 IU/L (10-60); AST ASPARTATE AMINOTRANSFERASE 23 IU/L (10-42); BILIRUBIN,TOTAL 0.7 mg/dL (0.2-1.0); BUN - BLOOD UREA NITROGEN 29 mg/dL (6-20); CALCIUM 9.5 mg/dL (8.5-10.3); CARBON DIOXIDE - CO2 30 mmol/L (21-32); CHLORIDE 102 mmol/L (101-111); CHOLESTEROL 191 mg/dL; GFR - MDRD 52 (>89); GLUCOSE 189 mg/dL (70-100); HDL CHOLESTEROL 63 mg/dL; LDL CHOLESTEROL,CALCULATED 105 mg/dL; LDL/HDL RATIO 1.7 (<4.4); MAGNESIUM 1.4 mg/dL (1.7-2.8); SODIUM 139 mmol/L (135-145); TOTAL PROTEIN 6.9 g/dL (6.7-8.2); VLDL CHOLESTEROL 23 mg/dL
== END 2018-09-07 23:59 | disposition home or self-care (01) ==
LOC: LAB.WCP 08:00
PROVIDERS: ATTEND Physician Assistant Medical
DX: E11.9 Type 2 diabetes mellitus without complications (principal); E78.5 Hyperlipidemia, unspecified; E83.42 Hypomagnesemia; J30.9 Allergic rhinitis, unspecified
CPT/HCPCS: 36415; 80053; 80061; 83036; 83721; 83735; 85025

== ENCOUNTER 2018-10-12 19:55 | Outpatient (CLI) | payer OTHER ==
--- NOTE | 2018-10-12 20:44 | CONSULTATION NOTE ---
Palliative Care Consultation - Referral Referring Provider: Mayte Irizarry PA-C Time of Visit: [id number] Referral setting: Home Referral Reason: Dementia without behavioral disturbances/DM/Goals of Care - Information Sources Records reviewed: Previous records reviewed History/Review of Systems obtained from: Patient, Family (Daughter Luna Sykes provided most of history; patient has lived with her 15 years) Exam limitations: Clinical condition (patient conversant but with poor STM issues/dementia) - History of Present Illness Brief History of Present Illness: This is an 88-year-old woman with moderate dementia, 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 She presents is alert, conversant, but significant short-term memory issues. I am dependent on her daughter for most of her history, she reports her cognitive decline has been most pronounced over the last year. Patient has lived with daughter, who has significant health problems with end-stage liver disease. They have lived together on [facility] for the last 15 years. Reports she has not had any wandering, she is not anxious, not irritable or agitated. She does keep her busy and distracted with laundry, dishes, has had a routine. She has had a few episodes of sundowners, and getting her days and nights mixed up. Patient herself presents with no distress, denies worrying about anything, does have some insight to her short-term memory issues but does not seem distressed. She did have a recent hospitalization in July, concern for seizure-like activity, she did present with dehydration, elevation of blood sugar, hypertensive, and weakness. On discharge she was discharged to [facility], she did stay there for about 2 weeks. Palliative care has been asked to follow-up with situation regarding concern for daughter able to care for patient. This is very difficult to confirm secondary patient does not keep blood sugar log, she is quite defensive so I did not ask for glucometer. Her biggest concern for her mother is when she has to leave her alone when she acutely is hospitalized. There are 2 grandchildren in the home, a 14-year-old and 9-year-old. Daughter does have a [employer] PES worker for herself. Patient does have 12 children, does appear some are estranged unclear if it is with mother are patient's daughter. Patient FRANKY is well cared for, medications in the home, daughter able to review medication list concurrent with providers list. Medical/Surgical History - Past Medical History Cardiovascular: reports: Hypertension, High cholesterol Respiratory: reports: None Neuro: Dementia Endocrine/Autoimmune: reports: Type 2 diabetes, HyPOthyroidism GI: reports: GERD : reports: Incontinence HEENT: reports: Chronic hearing loss Psych: reports: None Musculoskeletal: reports: Rheumatoid arthritis Derm: reports: None MRSA Hx?: No - Past Surgical History General: reports: Appendectomy HEENT: reports: Cataracts, Tonsil/Adenoidectomy - Substance History Use: Uses substance without health or social issues: NONE Social History - Living Situation Living arrangement: At home Living Situation: With family Support System: Patient lives with daughter Luna who has significant health problems related to her alcoholic cirrhosis. These problems do manifest themselves with acute hospitalizations, patient is in left home by herself. Patient care is overseen by daughter, there is a [employer] PES worker in the home, as well as 2 children. Unclear from daughter's description if other siblings are involved. Family History - Family History Family History: Mother: (sepsis), Cancer (breast), Father: , Alzheimer's Disease, Brother: , Other family: Alive and Well (patient has 12 children) Medications/Allergies - Medications Home Medications: Ambulatory Orders Medication Instructions Recorded Confirmed Aspirin Chewable [St Stanley 81 mg PO DAILY 07/20/18 10/13/18 Aspirin] Loratadine 10 mg PO DAILY 07/20/18 10/13/18 Pravastatin [Pravachol] 40 mg PO QPM 07/20/18 10/13/18 Levothyroxine Sodium [Synthroid] 50 mcg PO QDAC 07/21/18 10/13/18 amLODIPine [Norvasc] 5 mg PO DAILY #30 tablet 07/26/18 10/13/18 metFORMIN [Glucophage] 500 mg PO BIDWM #60 tablet 07/26/18 10/13/18 raNITIdine [Zantac] 150 mg PO DAILY #30 tablet 07/26/18 10/13/18 Cholecalciferol [Vitamin D3] 5,000 units PO DAILY 10/13/18 10/13/18 Insulin Aspart [NovoLOG] 5 units SQ AC MDD + sliding scale 10/13/18 10/13/18 Insulin Glargine [Lantus Solostar] 5 units SQ DAILY 10/13/18 10/13/18 Metoprolol Succinate 12.5 mg PO BID 10/13/18 10/13/18 Spironolactone [Aldactone] 12.5 mg PO DAILY 10/13/18 10/13/18 - Allergies Allergies/Adverse Reactions: Allergies Allergy/AdvReac Type Severity Reaction Status Date / Time No Known Drug Allergies Allergy Verified 07/20/18 20:35 Review of Systems - Constitutional Constitutional: reports: Weight stable. denies: Fatigue, Fever, Chills - Eyes Eyes: reports: Vision loss - Ears, Nose & Throat Ears, Nose & Throat: reports: Hearing loss, Hearing aids, Nasal congestion - Cardiovascular Cardiovascular: denies: Chest pain, Decr. exercise tolerance - Respiratory Respiratory: denies: SOB at rest, SOB with exertion - Gastrointestinal Gastrointestinal: reports: Good appetite, Other (Does appear food preparation is mostly take out, canned, and noted mostly processed food in home.). denies: Constipation (daughter reports patient inc.), Nausea - Genitourinary Genitourinary: reports: Incontinence - Musculoskeletal Musculoskeletal: reports: Joint pain (hands/daughter reports used to do parafin attributes to RA/appears osteoarthritic) - Integumentary Integumentary: reports: Dryness - Neurological Neurological: reports: Memory problems - Psychiatric Psychiatric: denies: Depression, Anxiety - Endocrine Endocrine: reports: Diabetes type 2 (reports BS in good range; am 132 despite not getting PM insulin and "[employer]". Does have sliding scale, unclear if consistent. Patient on low doses of insulin, suspect not very impactful overall if compliant.) - Hematologic/Lymphatic Hematologic/Lymphatic: denies: Recurrent infections - All Other Systems All Other Systems: reports: Reviewed and negative Physical Exam - Vital Signs Temperature: 97.1 C Pulse Rate: 68 Respiratory Rate: 18 O2 Saturation: 99 (ra @ rest) Blood Pressure: 108/62 (sitting; 122/64 standing) - Physical Exam General Appearance: positive: No acute distress Eyes Bilateral: positive: Normal inspection ENT: positive: No signs of dehydration Neck: positive: No JVD, Trachea midline Cardiovascular: positive: Regular rate & rhythm Respiratory: positive: Breath sounds nml Abdomen: positive: Soft, Nml bowel sounds Skin: positive: Pallor, Dryness Extremities: positive: No pedal edema Neurologic/Psychiatric: positive: Mood/affect nml, Disoriented to time. negative: Weakness Palliative Care - POLST Patient has POLST: Yes POLST Status: Full Code (Use of AB; trial period of artifical nutrition of 3 months if in coma) Pain: No pain Tiredness/Fatigue: Mild (1-3) Drowsiness/Sedation: Moderate (4-6), Comment (reports gets nights and days mixed up) Nausea: None Depression: None Anxiety: None Dyspnea: Mild (1-3) Anorexia: None Sleep: Variable sleep pattern Constipation: No Feelings of wellbeing/Perceived Quality of Life: Good, Acceptable Performance Status: Patient is ambulatory, does participate in household task. Patient is able to attend to her own ADLs with oversight and cueing. Patient cannot do her own meds nor insulin and blood sugar checking. Daughter assists with meal prep and oversight. - Palliative Care Discussion: Daughter quite evasive around advanced care planning documents, reports she Luna [facility] [phone] shares D POA with her brother Ruddy Kurtz [phone]. Patient is unable to confirm this information, but did sign the consent for talking to both of them, Daughter requests we do not talk to other family members regarding this. We will have psych social worker follow-up and obtaining document to confirm this information. Patient does have a pulsed that was filled out with Aurora Gordillo on 03/24/17. This is prior most likely to her demented state. He does have her as a CPR/full treatment/use antibiotics if life can be prolonged and a 3-month maximum trial if she is in a coma for artificially administered nutrition. The medical condition or goals though were stated as treatment of conditions with goal to return to acceptable quality of life. I suspect at that point in time she had decision making capacity. When asked the daughter if she would want this updated or any changes made, she is quite emphatic not at this point. This can be revisited later, though given daughter's decisions regarding her health this is fairly consistent in their belief and value system. Attempting to define with the role of palliative care would be in this situation, as they do not want any changes to advanced care planning documents,. It appears that main concern is about when daughter has to leave the home for significant periods of time related to her own acute health issues. She has concern about patient not necessarily being alone but able to have oversight and support for managing her diabetic care and her medications. Patient has also recently lost her ID, she attributes this to family issues and or patient hiding her purse. 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 Unfortunately what this means is that she does not have ID, cards etc were cancelled, and her social security checks for which the household is dependent on for rent, cannot be deposited into her bank account. With her dementia she was unable to answer the questions needed to remedy this with social security. Daughter is also interested in [facility] for her mother, though she does not at this point require personal care. Discussed offering [facility]iative [facility] whom she is familiar with, can call/meet with them though will have limited ability to impact this situation but may be able to help with direction. Impression and Recommendations - Palliative Care Impression: This is an 88-year-old woman who has ongoing cognitive decline secondary to dementia, she has comorbidities of diabetes and hypertension. Does appear to be having care needs met, unable to verify specifically regarding oversight and management by her daughter, but at this point in time no signs or symptoms of neglect or concern. She has limited needs from the Palliative Care Team, will have Palliative Care [facility] follow up regarding financial/psychosocial stressors and LTP needs. Recommendations/Counseling Done: 1. Dementia without behavioral disturbances. Patient without any neuropsychiatric behaviors, some slight symptoms of sundowners and up at night, but no behaviors noted that are putting patient at risk, daughter describes appropriate redirection and monitoring. 2. Diabetes type 2. Patient actually on very low doses of insulin, and daughter's description of current blood sugars though not written down, no significant hyper or hypoglycemic issues. No further signs or symptoms of seizures or difficulty managing. Patient's weight is stable, patient without complaints. Verification most likely most accurate with A1c. Patient receiving medications, reviewed medication administration and bottles confirmed. 3. Advanced care planning. Patient is a full code, daughter not wanting to discuss this further at this point in time. Would be helpful to have D POA documents as patient does have 12 children. More pressing issue is actually daughters health and absences from the home during acute illness episodes, psychosocial/financial stressors and concern for eviction. Medical palliative care psych social worker offered, minimal role at this point in time for palliative care INSPECTOR TECHNICIAN. Did discuss role of volunteers, given the situation and needs, this most likely would not be of benefit. Time Spent: 60 minutes was given 50% of this done in counseling and exploration of goals, current medication management, and limited role of palliative care in this situation. Coordination of care with follow-up to be done by medical palliative care psych social worker.
== END 2018-10-12 19:56 | disposition home or self-care (01) ==
LOC: PC 19:55
PROVIDERS: ATTEND Nurse Practitioner Adult Health
DX: Z51.5 Encounter for palliative care (principal); F03.90 Unspecified dementia, unspecified severity, without behavioral disturbance, psychotic disturbance, mood disturbance, and anxiety; F05 Delirium due to known physiological condition; E11.9 Type 2 diabetes mellitus without complications; I11.0 Hypertensive heart disease with heart failure; I50.9 Heart failure, unspecified; Z79.4 Long term (current) use of insulin; Z79.899 Other long term (current) drug therapy
CPT/HCPCS: 99344

== ENCOUNTER 2019-06-28 08:00 | Outpatient (CLI) | payer MEDICARE, MEDICAID ==
[2019-06-28 18:54] LABS: CREATININE 1.5 mg/dL (0.4-1.0); MAGNESIUM 1.6 mg/dL (1.7-2.8)
[2019-06-28 19:00] LABS: HB2 TOTAL 12.4 g/dL; HEMOGLOBIN A1C 0.89 g/dL; HEMOGLOBIN A1C % 8.7 % (4.6-6.2)
[2019-06-28 19:33] LABS: FREE T4 (FREE THYROXINE) 0.87 ng/dL (0.58-1.64)
== END 2019-06-28 23:59 | disposition home or self-care (01) ==
LOC: LAB.WCP 08:00
PROVIDERS: ATTEND Physician Assistant Medical
DX: E11.59 Type 2 diabetes mellitus with other circulatory complications (principal); N28.9 Disorder of kidney and ureter, unspecified; E83.42 Hypomagnesemia; E03.9 Hypothyroidism, unspecified
CPT/HCPCS: 36415; 80048; 83036; 83735; 84439; 84443

== ENCOUNTER 2019-09-19 13:45 | Outpatient (CLI) | payer MEDICARE, OTHER, MEDICAID ==
[2019-09-19 19:25] LABS: ALBUMIN 4.2 g/dL (3.2-5.5); ALBUMIN/GLOBULIN RATIO 1.4 (1.0-2.2); ALKALINE PHOSPHATASE 61 IU/L (42-121); ALT ALANINE AMINOTRANSFERASE 23 IU/L (10-60); AST ASPARTATE AMINOTRANSFERASE 22 IU/L (10-42); BILIRUBIN,TOTAL 0.9 mg/dL (0.2-1.0); BUN - BLOOD UREA NITROGEN 44 mg/dL (6-20); CALCIUM 9.5 mg/dL (8.5-10.3); CARBON DIOXIDE - CO2 31 mmol/L (21-32); CHLORIDE 100 mmol/L (101-111); CHOL/HDL RATIO 3.2 (<4.4); CHOLESTEROL 181 mg/dL; CREATININE 1.6 mg/dL (0.4-1.0); GFR - MDRD 30 (>89); GLUCOSE 126 mg/dL (70-100); HDL CHOLESTEROL 57 mg/dL; LDL CHOLESTEROL,CALCULATED 97 mg/dL; LDL/HDL RATIO 1.7 (<4.4); SODIUM 139 mmol/L (135-145); TOTAL PROTEIN 7.2 g/dL (6.7-8.2); VLDL CHOLESTEROL 27 mg/dL
[2019-09-19 19:49] LABS: HB2 TOTAL 11.4 g/dL; HEMOGLOBIN A1C 0.81 g/dL; HEMOGLOBIN A1C % 8.7 % (4.6-6.2)
[2019-09-19 20:52] LABS: FREE T4 (FREE THYROXINE) 0.89 ng/dL (0.58-1.64)
== END 2019-09-19 23:59 | disposition home or self-care (01) ==
LOC: LAB.WCP 13:45
PROVIDERS: ATTEND Physician Assistant Medical
DX: E11.59 Type 2 diabetes mellitus with other circulatory complications (principal); E03.9 Hypothyroidism, unspecified
CPT/HCPCS: 36415; 80053; 80061; 83036; 83721; 84439; 84443

== ENCOUNTER 2019-09-28 15:18 | Outpatient (CLI) | payer MEDICARE, OTHER, MEDICAID ==
--- NOTE | 2019-09-29 08:35 | Mammography Report ---
Reason: ROUTINE MAMMO Procedure Date: 09/28/2019 Accession Number: [id number] / [id number] Procedure: [facility] - Screening Mammo Dig Bilat CPT Code: Final Report FULL RESULT: EXAM: Screening Mammo Dig Bilat DATE: 09/28/2019 3:48 PM CLINICAL HISTORY: Family history of breast cancer in mother at the age of 75. Screening mammogram. TECHNIQUE: (B) - Bilateral CC and MLO views were obtained. COMPARISON: 04/03/2014 through 12/04/2010. PARENCHYMAL PATTERN: (A) - The breast(s) demonstrate(s) scattered fibroglandular densities. FINDINGS: There are typically benign coarse and vascular calcifications. There are no suspicious masses, calcifications, or areas of distortion. IMPRESSION: Benign findings. BI-RADS category 2. RECOMMENDATION: (ANNUAL) - Recommend routine annual screening mammography. BI-RADS CATEGORY: (2) - Benign Findings. STANDARD QUALIFYING STATEMENTS: 1. This examination was not reviewed with the aid of Computer-Aided Detection (CAD). 2. A negative or benign imaging report should not preclude biopsy if clinically suspicious findings are present. 3. Dense breasts may obscure an underlying neoplasm. 4. This examination was reviewed without the aid of 3D breast imaging (tomosynthesis).
== END 2019-09-28 15:19 | disposition home or self-care (01) ==
LOC: DI.N 15:18
DX: Z12.31 Encounter for screening mammogram for malignant neoplasm of breast (principal); Z80.3 Family history of malignant neoplasm of breast
CPT/HCPCS: 77067

== ENCOUNTER 2020-02-09 12:24 | Outpatient (CLI) | payer MEDICARE, OTHER ==
[2020-02-09 18:27] LABS: CALCIUM 9.9 mg/dL (8.5-10.3); CREATININE 1.5 mg/dL (0.4-1.0)
[2020-02-09 19:02] LABS: HB2 TOTAL 12.9 g/dL; HEMOGLOBIN A1C 0.99 g/dL; HEMOGLOBIN A1C % 9.2 % (4.6-6.2)
== END 2020-02-09 23:59 | disposition home or self-care (01) ==
LOC: LAB.WCP 12:24
PROVIDERS: ATTEND Physician Assistant Medical
DX: E03.9 Hypothyroidism, unspecified (principal); E11.51 Type 2 diabetes mellitus with diabetic peripheral angiopathy without gangrene
CPT/HCPCS: 36415; 80048; 83036; 84443